=== PATIENT | male | born 1955 | race Caucasian/White ===

== ENCOUNTER → 2018-01-05 13:51 | Outpatient (CLI) | payer OTHER, SELFPAY ==
[2018-01-05 13:34] VITALS: BMI 29.4
--- NOTE | 2018-01-05 13:56 | RAD_ITS ---
STUDY: X-RAY - RIGHT SHOULDER REASON FOR EXAM: Male, 62 years old. Pain after fall 2 months ago TECHNIQUE: 3 view(s) of the shoulder. COMPARISON: None. FINDINGS: Normal glenohumeral articulation. Normal acromioclavicular joint. Normal acromion. Normal humeral head and visualized proximal humerus. The soft tissue structures are unremarkable. Normal visualized pulmonary apex. RAD/Shoulder min 2 Views IMPRESSION: Normal x-ray examination of the shoulder. Electronically Signed: Teofilo Allen MD, FACR at 14:15 EST , Service support ,
== END ==
PROVIDERS: Family Provider Nurse Practitioner Family; PCP Nurse Practitioner Family; Visit Provider Orthopaedic Surgery
DX: M25.511 Pain in right shoulder (principal)
CPT/HCPCS: 73030

== ENCOUNTER → 2018-01-19 11:08 | Outpatient (CLI) | payer OTHER, SELFPAY ==
--- NOTE | 2018-01-19 11:16 | MRI_ITS ---
STUDY: MRI RIGHT SHOULDER REASON FOR EXAM: Pain and decreased range of motion since the first week of October, injury. TECHNIQUE: Standardized fat and water weighted pulse sequences were obtained in all 3 orthogonal planes. COMPARISON: Radiographs 01/05/2018. FINDINGS: There is supraspinatus tendinosis and a full-thickness tear of the distal anterior supraspinatus tendon (T2 coronal series 8 image 14) measuring approximately 1.8 cm in length. Normal infraspinatus tendon. Normal subscapularis tendon. Normal teres minor tendon. Normal supraspinatus muscle. Normal infraspinatus muscle. Normal subscapularis muscle. There is atrophy with fat replacement of the teres minor muscle (proton-density coronal image 1). There is a small glenohumeral joint effusion with fluid extending into the bicipital tendon sheath. There is mild cystic change of the posterior aspect of the greater tuberosity. Normal biceps labral complex. There is mild tendinosis of the extracapsular long biceps tendon (T2 axial images 19, 20) and intracapsular long biceps tendon (T2 sagittal images 11, 12). Normal labrum. Normal capsulo- ligamentous complex. There is acromioclavicular arthrosis without substantial undersurface osteophytes (T2 sagittal image 9). There is a Type II morphology (curved), with a neutral orientation. There is a small volume of subacromial-subdeltoid bursal fluid. Normal visualized coracohumeral and coracoacromial ligaments. Normal deltoid muscle. Normal trapezius muscle. MRI/Upper Ext Joint Only(Routine) IMPRESSION: Full-thickness tear and tendinosis of the supraspinatus tendon. Atrophy of the teres minor muscle. Mild tendinosis of the long biceps tendon. Acromioclavicular arthrosis. Glenohumeral joint fluid communicating with the subacromial-subdeltoid bursa. Electronically Signed: Kishore Tracy MD at 12:57 EST Tel , Service support ,
== END ==
PROVIDERS: Family Provider Nurse Practitioner Family; PCP Nurse Practitioner Family; Visit Provider Orthopaedic Surgery
DX: M75.101 Unspecified rotator cuff tear or rupture of right shoulder, not specified as traumatic (principal)
CPT/HCPCS: 73221

== ENCOUNTER 2018-02-03 05:25 | Day surgery (SDC) | payer OTHER, SELFPAY ==
[2018-02-03] VITALS (9 sets, daily range): BP systolic 120–130; BP diastolic 61–75; PULSE 62–68; RESP 16; TEMP 36.6–36.7; O2SAT 91–95; BMI 29.7
--- NOTE | 2018-02-03 05:38 | EKG12_ITS ---
Test Reason : PRE OP Blood Pressure : / mmHG Vent. Rate : 066 BPM Atrial Rate : 066 BPM P-R Int : 210 ms QRS Dur : 086 ms QT Int : 366 ms P-R-T Axes : 047 049 043 degrees QTc Int : 383 ms Sinus rhythm with 1st degree A-V block Otherwise normal ECG No previous ECGs available Confirmed by ROM PERAZA, CONNOR ([id number]), television news video editor AURORA BECKER ([id number]) on 02/05/2018 3:28:52 PM Referred By: Belinda Almonte Confirmed By:CONNOR CUETO MD
[2018-02-03 06:16] LABS: Hematocrit 41.7 % (40-54); Hemoglobin 14.6 g/dl (13.0-16.5); Mean Corpuscular Hgb 30.1 pg (27.0-32.0); Mean Platelet Vol. 9.7 fl (6.2-12.0); Platelet Count 194 K/mm3 (150-450); RBC Distribution Width CV 12.4 % (11.6-14.6); RBC Distribution Width SD 39.1 fl (35.1-43.9); Red Blood Count 4.85 M/mm3 (4.6-6.2); White Blood Count 7.2 K/mm3 (4.4-11.0)
[2018-02-03 06:21] LABS: Scan Indicated on CBC? Y/N NO
[2018-02-03 06:45] LABS: Anion Gap 7 (5-15); BUN 8 mg/dL (7-18); BUN/Creat Ratio 8.4 RATIO (10-20); Calcium,Total 9.5 mg/dL (8.5-10.1); Chloride 106 mmol/L (98-107); Creatinine, Serum 0.95 mg/dL (0.70-1.30); EST Glomerular Filtration Rate 85 mL/min (>60); Est Glom Filt Rate - Afr Amer 102 mL/min (>60); Estimated Creatinine Clearance 81.11 ml/min; Glucose 185 mg/dL (74-106); Potassium 3.9 mmol/L (3.5-5.1); Sodium Level 138 mmol/L (136-145); Thyroid Stim Hormone (TSH) 6.43 uIU/mL (0.358-3.74)
--- NOTE | 2018-02-03 07:30 | TESH_PTH ---
PATIENT: JONATHAN ADAM LOC: [facility] [place] [facility] [place][id number] AGE/SX: 62/M ROOM: RE02/03/[address]: Dr. Belinda Almonte DO : 1955 BED: DIS: 02/03/2018 SPEC #: [id number] RECD: 02/03/18 13:44 STATUS: JENNIFER EWELINA #: [id number] JENNA: 02/03/18 07:[address]: Belinda Almonte DEPT: SURGICAL PATHOLOGY RECD BY: Krystle Solares ENTERED: 02/03/18 14:52 SP TYPE: TENDON OTHR DR: Maegan Workman, LIDYA Tissues: Tendon and tendon sheath, NOS Procedures: Surgery Specimen Level III HEADER OPERATION: Arthroscopy, right shoulder, rotator cuff repair, subacromial decompression PRE-OP DIAGNOSIS: Right rotator cuff tear, biceps tendonitis TISSUE SUBMITTED: Biceps tendon MICROSCOPIC DIAGNOSIS Biceps tendon: A piece of dense fibroconnective tissue with reactive changes, clinically rotator cuff repair. NIA:matias 02/04/18 MICROSCOPIC DESCRIPTION Slides are reviewed. GROSS DESCRIPTION Received in fixative is one container labeled with the patient's name and designated biceps tendon. The specimen consists of a pink-roper tendinous tissue measuring 4.2 x 1.4 x 0.5 cm. Snuff Drier cross sections and longitudinal sections are submitted in one cassette. / AM:matias 02/03/18 TC:5 CPT: 78251
[2018-02-03] MEDS: Cefazolin 2 GM in 0.9% Normal Saline 100 ML IV (07:42)
--- NOTE | 2018-02-03 07:43 | OP.PCM_ITS ---
Report of Operation Date of Procedure: 02/03/18 Pre-Operative Diagnosis: right shoulder rotator cuff tear, tendinosis, biceps tendinopathy, subacromial impingement syndrome Post-Operative Diagnosis: same Surgery/Procedure Performed:: sars, rc debridement, subacromial decompression/ acromioplasty, rotator cuff repair, open subpec biceps tenodesis Type of Anesthesia:: General/Regional Anesthesiologist: Girma Mzt Specimen's removed: biceps tendon Estimated Blood Loss (mL): minimal Fluids Replaced: 1000ml LR Description of Procedure: Preoperative note She is a 62-year-old male with right shoulder pain and weakness. MRI confirms rotator cuff tear and biceps tendinopathy and subacromial impingement. Patient failed conservative treatment and elected to proceed with right shoulder arthroscopy repair is indicated. Risks benefits and alternatives of surgery were discussed with patient. Risks including but not limited to blood loss, blood clot, infection, neurovascular injury, failure procedure, loss of life and loss of limb. Patient is aware would like proceed with right shoulder arthroscopy repair is indicated. Operative note Patient seen and examined in preoperative holding area. Right shoulder was marked. Patient is brought to the operating room and placed supine on the operating room table. Signing, anesthesia, antibiotics were administered. The right arm was prepped and draped in usual sterile fashion after patient was placed in beachchair positioning. Please note that intermediate through beachchair positioning we did recheck the blood pressure make sure that it was stable throughout which it was. All bony prominences were well-padded and SCDs placed on his bilateral lower externally's. Marked out our bony landmarks for right shoulder arthroscopy. Timeout was performed. We then insufflated the glenohumeral joint from posterior portal. We had good outflow return. We then used 11 blade to create our posterior portal. We will visualize the glenohumeral joint. We began a diet standard diagnostic arthroscopy. There were no loose bodies in the inferior recess. There is no arthritis of the glenohumeral joint. We were able then to create an anterior portal under direct visualization. The biceps is quite thickened and had streaking throughout. The rotator cuff was torn off of its leading edge have more than 50 % of it was torn. Off of the articular side. We able to then perform a biceps tenotomy and then undersurface debrided some of the labrum that was on the anterior aspect that was on loose as well as some of the undersurface of the rotator cuff more on the infraspinatus and in the supraspinatus that has some fibrillated changes as well. We then moved to our subacromial decompression. Please note that after but doing a biceps tenotomy we then debrided the anterior labrum at the insertion as well. We then irrigated the shoulder with copious amounts of sterile saline and moved to the subacromial space. We then created a lateral portal under direct visualization. We are able to then noted note the quite thickened bursa throughout. With a combination of a shaver and a bone ablator we resected the quite thickened bursa. He also had a type II acromion that was resected with a combination of a bur and a shaver. We able to visualize our tear and inserted a probe we then had released it a little bit on the lateral edge in order to get her FasT-Fix device through it. We placed a fiber tape and then a links fiber link through the tear and then placed 1 lateral bio composite swivel lock 4.75 x 22 mm double loaded suture anchor. We had great coverage of the rotator cuff footprint at that point. We then irrigated the subacromial space with copious nonsterile saline. We then moved her open biceps tenodesis. We reprepped the area waited the allotted 3 minutes and then created our vertical incision extending from just the distal edge of the pec insertion about 2 cm. We then dissected down with tenotomy syllable of the biceps tendon. The biceps tendon was brought out of the incision. We then whipstitched the end of it after truncating the allotted portion for length and extension. We whipstitched the end of the biceps tendon and then in standard technique implanted our proximal proximal tenodesis implant system from [employer] the pec button system. We then oversewed the tendon to the periosteum and had good fixation and good strength of our repair. We then irrigated the incision with copious amounts of sterile saline. Incision was closed with interrupted 2- 0 Vicryl in a running 4-0 Monocryl the portals were closed with interrupted interrupted 4-0 nylon stitches sterile dressings were applied patient was placed in a sling. Patient tolerated procedure well there are no complications patient was transferred to the recovery room in stable condition. Please note that preoperatively patient did receive a regional interscalene block. Postoperative note Hospital pharmacy has prescriptions Call with increased pain numbness tingling or further issues arise At all times unless doing pendulums Pictures given to This note was generated with Kaboodle dictation software. It may contain incorrect words, spelling, and punctuation that were not noted in checking the note before signing.
--- NOTE | 2018-02-03 07:43 | PCM.DC.ORTHO ---
Discharge Diet: No Restrictions - remove dressing in 4 days and apply bandaids to incision, sling at all times unless doing pendulums which you may perform 3 times a day, may move wrist/hands as much as possible, follow up in 2 weeks, call with concerns Discharge Activity: May Not Drive May shower in (days): 1 Ice area for (Minutes): 20 - Every hour while awake. Weight Bearing Status: Weight bearing as tolerated Keep extremity elevated above heart level: Operative Extremity Call your doctor if your incision/area has: Continuous Slow Oozing, Sudden Increased Bleeding, Increased Pain/ Swelling, Increased Redness, Foul Smelling Discharge Call your doctor if you observe: Fever of 101 or Higher, Coldness, Increased Pain, Numbness or Tingling, Change in Color, Calf discomfort Allergies/Adverse Reactions: Allergies No Known Allergies Allergy (Verified 02/02/18 08:21) Medications to take at Discharge gabapentin 400 mg capsule 400 mg PO QHS cap 12/29/17 lisinopril 20 mg tablet 20 mg PO QDAY 12/29/17 metformin ER 750 mg tablet,extended release 24 hr 750 mg PO DAILY 12/29/17 niacin 250 mg tablet 250 mg PO QDAY 12/29/17 rosuvastatin 5 mg tablet 5 mg PO QHS 12/29/17 sitagliptin 50 mg-metformin ER 500 mg tablet,extended release 24h mp 1 tab PO QHS 12/29/17 amlodipine 5 mg tablet 10 mg PO QHS tab 01/05/18 cholecalciferol (vitamin D3) 2,000 unit capsule 2,000 unit PO DAILY 01/05/18 duloxetine 60 mg capsule,delayed release 60 mg PO BID cap 01/05/18 levothyroxine 25 mcg capsule 25 mcg PO SUTUTHSA 01/05/18 levothyroxine 50 mcg tablet 50 mcg PO MOWEFR tab 01/05/18 loratadine 10 mg tablet 10 mg PO QDAY 01/05/18 metoprolol tartrate 25 mg tablet 50 mg PO QHS tab 01/05/18 pantoprazole 40 mg tablet,delayed release 40 mg PO QDAY 01/05/18 tramadol 50 mg tablet 50 mg PO Q6H PRN 01/21/18 Oxycodone HCl/Acetaminophen [Percocet 5/325] 1 - 2 tablet PO Q6H PRN PRN 5 Days #56 tablet 02/03/18 Zolpidem Tartrate [Ambien (Generic)] 5 mg PO QHS PRN PRN #14 tablet 02/03/18 The following prescriptions were given: Oxycodone HCl/Acetaminophen [Percocet 5/325] 1 - 2 tablet PO Q6H PRN PRN 5 Days #56 tablet PRN Reason: Pain Zolpidem Tartrate [Ambien (Generic)] 5 mg PO QHS PRN PRN #14 tablet PRN Reason: Insomnia Primary Care Physician: Maegan Workman NP-C [Primary Care Provider] - Please Follow Up With: Belinda Almonte, DO - [phone]
[2018-02-03 09:01] LABS: Hemoglobin A1c 7.8 % (4.2-6.3)
[2018-02-03] MEDS: Mupirocin Ointment 22gm Tube 1 APPLIC (09:40)
[2018-02-03 10:35] LABS: Bedside Glucose 192 mg/dL (70-110)
[2018-02-03] MEDS: HYDROcodone Bitartrate/Apap 5/325 Tablet PO (12:24)
== END 2018-02-03 13:03 | disposition home or self-care (01) ==
LOC: SDC 05:26 → AC 05:27
PROVIDERS: Anesthesiology; Family Provider Nurse Practitioner Family; PCP Nurse Practitioner Family; Visit Provider Orthopaedic Surgery
PROC: (CPT 29827; principal; 2018-02-03 07:10)
DX: M75.121 Complete rotator cuff tear or rupture of right shoulder, not specified as traumatic (principal); M75.21 Bicipital tendinitis, right shoulder; M75.41 Impingement syndrome of right shoulder; K21.9 Gastro-esophageal reflux disease without esophagitis; E11.9 Type 2 diabetes mellitus without complications; I10 Essential (primary) hypertension; E78.5 Hyperlipidemia, unspecified; E03.9 Hypothyroidism, unspecified; Z72.0 Tobacco use
CPT/HCPCS: 01630; 29826; 29827; 29828; 64450; 36415; 80048; 82962; 83036; 84443; 85027; 88304; 93005; J3010; J7120; A4216; C1713; J2405

== ENCOUNTER 2018-02-03 21:03 | Emergency (ER) | payer OTHER, SELFPAY ==
[2018-02-03 21:04] VITALS: BP 152/76; PULSE 92; RESP 25; TEMP 37.3; O2SAT 95; BMI 28.9
[2018-02-03] MEDS: HYDROmorphone 2 MG TABLET 4 MG PO ×2 (22:52→23:48)
[2018-02-03] MEDS: Ketorolac 60 MG/2 ML Vial IM (22:52)
--- NOTE | 2018-02-03 23:30 | ED.VISSUMM ---
- ER Visit Summary Date of Service: 02/03/18 Chief Complaint: Postoperative pain History of Present Illness: The patient is a 62 M who had a rotator cuff surgery earlier today. He was prescribed Percocet. He got an automatic ice cooling device today but had not been using it yet. He was prescribed Percocet but states his pain is uncontrolled despite taking 2 tablets. I was called by Dr. Almonte who asked that we manage the patient's pain and also start him on Dilaudid and she will him a prescription for this after tonight. Physical Examination: Afebrile vitals are stable Moist mucous membranes Heart regular rate and rhythm Lungs are clear Incision is clean dry and intact No edema of the hand normal distal sensation light touch brisk capillary refill palpable radial pulse Test Results: Not indicated Emergency Department Course and Treatment: Patient was treated with intramuscular Toradol and oral Dilaudid here with about a 50% improvement in pain. He states he feels much better and when asked how he was feeling gave a thumbs up and shook my hand. He appears much more comfortable. We will give him a home pack for enough Dilaudid until he can follow-up with his orthopedic surgeon and he was discharged home. Treatment Plan: [] Disposition: Discharge Impression: Postoperative pain This note was generated with KIT digital dictation software. It may contain incorrect words, spelling, and punctuation that were not noted in review of the chart prior to signing ED Disposition - Plan for ED Patient: Chief Complaint: Other, Pain/Inj Referrals: Maegan Workman NP-C [Primary Care Provider] -
--- NOTE | 2018-02-03 23:33 | ED.DEP ---
ED Disposition - Plan for ED Patient: Chief Complaint: Other, Pain/Inj Instructions: ED Post Op Pain Referrals: Maegan Workman NP-C [Primary Care Provider] -
[2018-02-03 23:47] VITALS: BP 148/77; PULSE 83; RESP 17; O2SAT 85
--- NOTE | 2018-02-03 23:47 | ED.RN ---
PT PO DROP TO 85% ON RA. NOTIFIED. ORDERED TO OBSERVE
[2018-02-04 00:12] VITALS: BP 140/87; PULSE 91; RESP 17; O2SAT 95
--- NOTE | 2018-02-04 00:13 | ED.RN ---
DR RODRIGUEZ NOTIFIED OF PO 95-96% OK TO D/C
== END 2018-02-04 00:14 | disposition home or self-care (01) ==
LOC: ED 23:20
PROVIDERS: Emergency Provider Emergency Medicine; Family Provider Nurse Practitioner Family; PCP Nurse Practitioner Family
DX: G89.18 Other acute postprocedural pain (principal); E11.9 Type 2 diabetes mellitus without complications; I10 Essential (primary) hypertension; E78.00 Pure hypercholesterolemia, unspecified; Z72.0 Tobacco use
CPT/HCPCS: 96372; 99283

== ENCOUNTER → 2018-04-01 13:25 | Outpatient (CLI) | payer OTHER, SELFPAY ==
--- NOTE | 2018-04-01 13:28 | CT_ITS ---
STUDY: CT ABDOMEN WITHOUT CONTRAST REASON FOR EXAM: Male, 62 years old. Pain. Recent fall. RADIATION DOSAGE (If Supplied By Facility): CTDIvol = ( 14.48 ) mGy, DLP = ( 525.85 ) mGycm TECHNIQUE: Transaxial images were obtained without intravenous contrast, and without oral contrast. Sagittal and coronal images were reconstructed. Individualized dose optimization techniques were used for this CT. COMPARISON: 02/08/16. FINDINGS: The lung bases, again seen is a 7 mm noncalcified nodule in the 2.1 cm noncalcified mass in the posterior right lung base. These are stable for over 2 years now. There is decreased attenuation of the liver consistent with steatosis. There is hepatomegaly. Normal gallbladder and extrahepatic biliary system. Normal spleen. Normal pancreas. Normal bilateral adrenal glands. Normal right kidney. Normal left kidney. No definite renal or ureteral stones are seen. There is no hydronephrosis on either side. Normal visualized stomach. Normal small intestine. Normal colon. There is non-visualization of the appendix. Normal abdominal aorta. Normal inferior vena cava. Normal retroperitoneum. Normal abdominal wall. There are diffuse degenerative changes of the visualized lumbar spine. CT/Abdomen without IV Contrast IMPRESSION: No acute abnormality seen in the abdomen. Fatty liver and hepatomegaly. Stable noncalcified nodules in the lower right lung. Electronically Signed: Raudel Chappell MD at 14:33 EDT , Service support ,
== END ==
PROVIDERS: Family Provider Nurse Practitioner Family; PCP Nurse Practitioner Family; Visit Provider Internal Medicine
DX: R10.31 Right lower quadrant pain (principal); W19.XXXA Unspecified fall, initial encounter
CPT/HCPCS: 74150

== ENCOUNTER → 2018-05-14 12:21 | Outpatient (CLI) | payer MEDICARE, OTHER, SELFPAY ==
--- NOTE | 2018-05-14 13:00 | MRI_ITS ---
STUDY: MRI RIGHT SHOULDER REASON FOR EXAM: Right shoulder pain and decreased range of motion, new injury, rotator cuff surgery in January. TECHNIQUE: Standardized fat and water weighted pulse sequences were obtained in all 3 orthogonal planes. COMPARISON: MRI images 01/19/2018. FINDINGS: There is a full-thickness tear of the supraspinatus and infraspinatus tendons retracted approximately 4.1 cm (T2 coronal images 6-17). There is mild subscapularis tendinosis (T2 axial image 17) without discrete tendon tear. Normal teres minor tendon. Normal supraspinatus muscle. There is mild edema in the distal superior infraspinatus muscle. Normal subscapularis muscle. There is atrophy with fat replacement of the teres minor muscle (T2 sagittal image 19) as on the prior study. There is a glenohumeral joint effusion. There is an anchor in the greater tuberosity. There is superior migration of the humeral head secondary to the retracted rotator cuff tear. There is an intact biceps tenodesis (T2 sagittal image 7). There is attenuation of the superior labrum likely from debridement. There is inflammation of the joint capsule in the axillary bursa (T2 coronal images 12-14) suggestive of synovitis. There is acromioclavicular arthrosis (T2 sagittal image 19). There is a Type II morphology (curved), with a neutral orientation. There is a small volume of subacromial-subdeltoid bursal fluid. Normal deltoid muscle. Normal trapezius muscle. MRI/Upper Ext Joint Only(Routine) IMPRESSION: Full-thickness tear of the supraspinatus and infraspinatus tendons. Mild subscapularis tendinosis. Atrophy of the teres minor muscle. Intact biceps tenodesis. Synovitis in the axillary bursa. Acromioclavicular arthrosis. Glenohumeral joint fluid communicating with the subacromial-subdeltoid bursa. Electronically Signed: Kishore Tracy MD at 13:36 EDT Tel , Service support ,
== END ==
PROVIDERS: Family Provider Nurse Practitioner Family; PCP Nurse Practitioner Family; Visit Provider Orthopaedic Surgery
DX: M75.01 Adhesive capsulitis of right shoulder (principal)
CPT/HCPCS: 73221

== ENCOUNTER → 2018-06-22 15:42 | Outpatient (CLI) | payer MEDICARE, OTHER, SELFPAY ==
--- NOTE | 2018-06-22 15:53 | MRI_ITS ---
STUDY: MRI BRAIN WITH AND WITHOUT CONTRAST REASON FOR EXAM: Male, 63 years old. Right eye optic nerve atrophy TECHNIQUE: Standardized multiplanar fat and water weighted pulse sequences were obtained. 10 ml of Gadavist contrast material was administered intravenously for the contrast portion of the examination. COMPARISON: None. FINDINGS: Normal size of the ventricles and extra-axial spaces for the patient's age. Mild microangiopathic white matter disease. Normal bilateral basal ganglia. Normal thalami. There is no extra-axial fluid accumulation. Normal flow voids within the major intracranial circulation suggesting patency by spin echo criteria. Normal venous enhancement. There is no enhancing intra-axial or extra-axial abnormality. Normal sella turcica, pituitary gland, infundibular stalk, optic chiasm and hypothalamus. Normal tectal plate and pineal gland. Normal midbrain, nikki and medulla. Normal cerebellum. Normal basal cisterns. Normal bilateral temporal bones. Normal bilateral internal auditory canals. Right maxillary sinus disease. Normal calvarium and skull base. Normal visualized soft tissue structures. Normal visualized upper cervical spine. IMPRESSION: No evidence of infarct or hemorrhage. Mild microangiopathic white matter disease. Electronically Signed: Diogenes Titus MD at 2:03 EDT Tel , Service support , STUDY: MRI ORBITS WITH AND WITHOUT CONTRAST REASON FOR EXAM: Male, 63 years old. Right eye optic nerve atrophy TECHNIQUE: Standardized fat and water weighted pulse sequences were obtained in all 3 orthogonal planes, pre-and post contrast administration. 10 ml of Gadavist contrast material was administered intravenously for the contrast portion of the examination. COMPARISON: None. FINDINGS: Normal bilateral globes. There does appear to be some mild atrophy of the right optic nerve compared to the left side. Normal bilateral intraconal and extraconal spaces. Normal bilateral extraocular muscles. Normal optic chiasm and post-chiasmatic tracts. Normal sella turcica, pituitary gland, infundibular stalk, and hypothalamus. Normal bilateral cavernous sinuses. Normal tectal plate and pineal gland. MRI/Brain W/WO Contrast IMPRESSION: Mild right optic nerve atrophy compared to the left side. No superimposed findings of optic neuritis. No intraorbital masses or abnormal enhancement. Electronically Signed: Diogenes Titus MD at 2:06 EDT Tel , Service support ,
[2018-06-22 16:10] LABS: CREATININE FINGERSTICK 0.8 mg/dL (0.70-1.30); EGFR FINGERSTICK > 60.0000 mL/min (>60)
[2018-06-22 17:46] LABS: Hemoglobin A1c 8.9 % (4.2-6.3)
[2018-06-22 18:28] LABS: Microalbumin,Random Urine 15.7 mg/L (NO RANGE EST.); Microalbumin:Creatinine Ratio 14.4 mg/g CRE (<30 mg/g CRE)
[2018-06-22 18:47] LABS: PSA,Total - Annual Screen 0.36 ng/mL (0.00-4.00); Thyroid Stim Hormone (TSH) 3.42 uIU/mL (0.358-3.74)
== END ==
PROVIDERS: Family Provider Nurse Practitioner Family; PCP Nurse Practitioner Family; Visit Provider Ophthalmology
DX: H47.20 Unspecified optic atrophy (principal); E03.1 Congenital hypothyroidism without goiter; E11.9 Type 2 diabetes mellitus without complications; Z12.5 Encounter for screening for malignant neoplasm of prostate
CPT/HCPCS: 36415; 70553; 82043; 82570; 83036; 84153; 84439; 84443; A9585; G0103

== ENCOUNTER 2018-06-23 10:39 | Day surgery (SDC) | payer MEDICARE, OTHER, SELFPAY ==
[2018-06-23] VITALS (8 sets, daily range): BP systolic 109–135; BP diastolic 60–92; PULSE 65–91; RESP 18; TEMP 36.6–37.2; O2SAT 92–96; BMI 28.5
[2018-06-23 11:09] LABS: Hematocrit 42.3 % (40-54); Hemoglobin 14.8 g/dl (13.0-16.5); Mean Corpuscular Hgb 29.8 pg (27.0-32.0); Mean Corpuscular Volume 85.1 fL (80-94); Mean Platelet Vol. 10.1 fl (6.2-12.0); Platelet Count 225 K/mm3 (150-450); RBC Distribution Width CV 12.8 % (11.6-14.6); RBC Distribution Width SD 38.8 fl (35.1-43.9); Red Blood Count 4.97 M/mm3 (4.6-6.2); Scan Indicated on CBC? Y/N NO; White Blood Count 7.6 K/mm3 (4.4-11.0)
[2018-06-23 11:31] LABS: Anion Gap 7 (5-15); BUN 15 mg/dL (7-18); Calcium,Total 10.2 mg/dL (8.5-10.1); Chloride 106 mmol/L (98-107); Creatinine, Serum 0.94 mg/dL (0.70-1.30); EST Glomerular Filtration Rate 86 mL/min (>60); Est Glom Filt Rate - Afr Amer 104 mL/min (>60); Glucose 175 mg/dL (74-106); Potassium 4.3 mmol/L (3.5-5.1); Sodium Level 140 mmol/L (136-145); Thyroid Stim Hormone (TSH) 3.35 uIU/mL (0.358-3.74)
[2018-06-23] MEDS: Cefazolin 2 GM in 0.9% Normal Saline 100 ML IV (12:44)
[2018-06-23] MEDS: Mupirocin Ointment 22gm Tube 1 APPLIC (17:00)
--- NOTE | 2018-06-23 17:06 | DCINST_ITS ---
Discharge Diet: No Restrictions - leave dressings on and change dressings and apply bandaids to incision in 5 days, may get incision wet after 5 days, SLING AT ALL TIMES, SLING AT ALL TIMES! SLING AT ALL TIMES!! Discharge Activity: May Not Drive May shower in (days): 1 Ice area for (Minutes): 20 - Every hour while awake. Weight Bearing Status: Weight bearing as tolerated Keep extremity elevated above heart level: Operative Extremity Call your doctor if your incision/area has: Continuous Slow Oozing, Sudden Increased Bleeding, Increased Pain/ Swelling, Increased Redness, Foul Smelling Discharge Call your doctor if you observe: Fever of 101 or Higher, Coldness, Increased Pain, Numbness or Tingling, Change in Color, Calf discomfort Allergies/Adverse Reactions: Allergies No Known Allergies Allergy (Verified 06/16/18 12:52) Medications to take at Discharge gabapentin 400 mg capsule 400 mg PO BID cap 12/29/17 lisinopril 20 mg tablet 20 mg PO QDAY 12/29/17 metformin ER 750 mg tablet,extended release 24 hr 750 mg PO DAILY 12/29/17 niacin 250 mg tablet 250 mg PO QDAY 12/29/17 rosuvastatin 5 mg tablet 5 mg PO QHS 12/29/17 amlodipine 5 mg tablet 10 mg PO QHS tab 01/05/18 cholecalciferol (vitamin D3) 2,000 unit capsule 2,000 unit PO DAILY 01/05/18 duloxetine 60 mg capsule,delayed release 60 mg PO BID cap 01/05/18 levothyroxine 25 mcg capsule 25 mcg PO MOWEFR 01/05/18 levothyroxine 50 mcg tablet 50 mcg PO SUTUTHSA tab 01/05/18 loratadine 10 mg tablet 10 mg PO QDAY 01/05/18 metoprolol tartrate 25 mg tablet 50 mg PO QHS tab 01/05/18 pantoprazole 40 mg tablet,delayed release 40 mg PO QDAY 01/05/18 Ondansetron [Zofran] 8 mg PO Q8H PRN PRN #20 tab 06/23/18 Oxycodone HCl/Acetaminophen [Percocet 5/325] 1 - 2 tablet PO Q6H PRN PRN 5 Days #45 tablet 06/23/18 Zolpidem Tartrate [Ambien (Generic)] 5 mg PO QHS PRN PRN #14 tablet 06/23/18 The following prescriptions were given: Oxycodone HCl/Acetaminophen [Percocet 5/325] 1 - 2 tablet PO Q6H PRN PRN 5 Days #45 tablet PRN Reason: Pain Ondansetron [Zofran] 8 mg PO Q8H PRN PRN #20 tab PRN Reason: Nausea Zolpidem Tartrate [Ambien (Generic)] 5 mg PO QHS PRN PRN #14 tablet PRN Reason: Insomnia Primary Care Physician: Maegan Workman NP-C [Primary Care Provider] - Test Results: Test results from this visit will be discussed in further detail at your follow- up appointment, if applicable. Please Follow Up With: Belinda Almonte, - [phone]
--- NOTE | 2018-06-23 17:16 | OP.PCM_ITS ---
Report of Operation Date of Procedure: 06/23/18 Pre-Operative Diagnosis: Right shoulder failed rotator cuff repair/ osteoarthritis/ noncompliance/ subacromial impingement syndrome Post-Operative Diagnosis: same Surgery/Procedure Performed:: sars, rotator cuff repair with superior capsular reconstruction/ subacromial decompression/acromioplasty hand roller engraver: Neville Huang Type of Anesthesia:: General/Regional Anesthesiologist: Girma Mtz Estimated Blood Loss (mL): minimal Fluids Replaced: 2100ml lr Description of Procedure: Preoperative note Patient is a 63-year-old male well-known to me. Patient had a failed rotator cuff repair is noncompliant was on a bili hay was playing with goats multiple etiologies for his failed cuff initially. We try to treat him conservatively with therapy to see if he can regain any strength was unable to. Patient is quite active had minimal arthritis and wanted to get back to his activities of daily living and work activities we discussed different options at this point his best option is a superior capsular release if I can get his rotator cuff back. It appears on MRI to be retracted to at least the glenoid and I question the quality of the residual tendon. This is all discussed with patient. Risks benefits and alternatives surgery discussed with patient. Risks including but not limited to blood loss, blood clot, infection, neurovascular injury, failure procedure, loss of life and loss of limb. Patient is aware like proceed with right shoulder arthroscopy repair is indicated. Operative note Patient seen and examined preoperative holding area. Right shoulder was marked. Patient brought to the operating room placed supine on the operative table. Signing, anesthesia, antibiotics were administered. The right arm was prepped and draped in usual sterile fashion in beachchair positioning. All bony prominence is well-padded SCDs placed on his bilateral strength lower semi- . Alf through beachchair position we did recheck his blood pressure which is stable throughout. Again the right we prepped and draped his right shoulder in standard fashion we marked out our bony landmarks for portal placement we use our previous portal placement. Timeout was performed. We then insufflated the glenohumeral joint from the posterior total. Using 11 blade to create a create our posterior portal. We then were able to visualize the glenohumeral joint. He has some labral fraying which was noted he had no loose bodies in the inferior recess. His rotator cuff was obviously torn and retracted to the level of the glenoid and is in the infraspinatus was also torn and retracted posteriorly. We then created a lateral portal under direct visualization as well as an anterior lateral portal. We placed passports of the corrective size and each 1 of these. We then attempted to mobilize the cuff to see if we can bring it back to the x-rays insertion we are unable to especially from the medial glenoid retraction. This point we decided to convert to her superior capsular reconstruction. We gently debrided the area posterior to the labral insertion. The subacromial bursa degenerative tissues and sutures from previous repairs was thoroughly excised right clean and clear arthroscopic view of the glenoid humeral footprint. We first placed our glenoid anchors we placed 3 corkscrews anchors in the superior glenoid reduce percutaneous skin incisions spanning the glenoid from anterior to posterior at the 10:00 12:00 and 2:00 positions. We then placed our tuberosity anchor as the graft was fixed to the humerus using a knotless speed bridge repair we inserted 214.75 millimeters of the locking and 1 6.2 5 suture anchor about and measured appropriately next to the articular margin spanning humerus from the bicipital groove to the infraspinatus we extended the graft 5 mm around the anchors over the suture and cutting through and then 10-15 minutes on the tuberosity Cypher footprint present coverage. We marked our we measured all of our suture anchors and then used a marking pen and ruler to measure out the graft and marked anchor locations. We then used a scalpel and scissors to cut the graft performed. We punched holes in the lateral anchor locations using a 2 mm tissue biopsy punch please note that we measured our graft measurement preparations the anterior posterior distance between glenoid anchors, the anterior posterior distance between 2 rocks anchors, the medial lateral distance between posterior anchors, and the medial lateral distance between anterior anchors. We then aligned and oriented the prepared graft in its implant position outside of the lateral 10 mm passport actually was 12 mm passport cannula. We used the sutures a retrieval to carefully pull the fiber tape sutures through the passport button cannulated into the appropriate punch holes in the graft. We then retrieved and passed the 4 separate super check suture tack sutures with a scorpion suture passer for the double arpit side of his repair we avoided tingling to be to position the past sutures prior to removal of the addition normal sutures over the past per button cannula. We then grasped the leading edge of the graft with a tissue grasper pushed the graft in the past for button cannula passed the cannula dam maintain a graft orientation did not twist the graft. During insertion we then pulled the slightest suture through the graft from the fiber tape and FiberWire sutures. We continue to pull the FiberWire suture in the graft in position of the suture tack anchors firmly onto the glenoid. We tensioned the fiber tape sutures were pushing down the graft which are all suture slack was removed from under the graft. We completed a speed bridge repair with 2 lateral 4.75 swivel lock anchors and cut the remaining suture limbs. We then passed 3 marginal convergence stitches to the remaining infraspinatus and subscapularis with a lasso suture and lateral and scorpion suture passer combination. We had anterior graft tissue remaining as well and so we did fix the graft anterior leads to some of the rotator cuff supraspinatus that was left over. After this was done we irrigated the incision and the shoulder with copious amounts of sterile saline. The portals were closed with interrupted 4-0 nylon suture sterile dressings and a sling was applied. Patient tolerated tolerated procedure well there are no complication patient transferred to recovery room in stable condition patient did receive a postop regional interscalene block. Postoperative note Sling at all times Pharmacy has prescriptions Follow-up in 2 weeks Call with increased pain numbness tingling or further issues arise Pictures given to family This note was generated with Aireonation software. It may contain incorrect words, spelling, and punctuation that were not noted in checking the note before signing.
[2018-06-23] MEDS: Insulin Lispro 100 UNIT/ML INSULN.PEN SC (18:01)
[2018-06-23] MEDS: HYDROcodone Bitartrate/Apap 5/325 Tablet PO (18:25)
[2018-06-23 19:01] LABS: Bedside Glucose 227 mg/dL (70-110)
[2018-06-23 21:29] LABS: Hemoglobin A1c 8.7 % (4.2-6.3)
[2018-06-24 07:15] LABS: Bedside Glucose 324 mg/dL (70-110)
[2018-06-24 07:15] LABS: Bedside Glucose 302 mg/dL (70-110)
== END 2018-06-23 19:21 | disposition home or self-care (01) ==
LOC: SDC 10:40 → AC 10:41
PROVIDERS: Family Provider Nurse Practitioner Family; PCP Nurse Practitioner Family; Visit Provider Orthopaedic Surgery
PROC: (CPT 29827; principal; 2018-06-23 11:40)
DX: M75.121 Complete rotator cuff tear or rupture of right shoulder, not specified as traumatic (principal); M75.41 Impingement syndrome of right shoulder; E03.9 Hypothyroidism, unspecified; I10 Essential (primary) hypertension; E78.5 Hyperlipidemia, unspecified; E11.9 Type 2 diabetes mellitus without complications; K21.9 Gastro-esophageal reflux disease without esophagitis; F17.200 Nicotine dependence, unspecified, uncomplicated; Z91.19 Patient's noncompliance with other medical treatment and regimen
CPT/HCPCS: 29826; 29827; 64450; 80048; 82962; 83036; 84443; 85027; C1713; J7120; J2405

== ENCOUNTER → 2018-07-06 11:23 | Outpatient (CLI) | payer MEDICARE, OTHER, SELFPAY ==
--- NOTE | 2018-07-06 11:26 | US_ITS ---
STUDY: ABDOMINAL ULTRASOUND - RIGHT UPPER QUADRANT REASON FOR VISIT: Male, 63 years old. Fatty liver. Hepatomegaly. TECHNIQUE: Ultrasound evaluation of the right upper quadrant was performed with real-time and static kearns-scale imaging. TECHNICAL QUALITY: Adequate. COMPARISON: CT abdomen and pelvis 04/01/2018, 02/08/2016.. FINDINGS: Liver: The greatest sonographic measurement of the liver is 16.5 cm. However, on prior CT scan the greatest craniocaudal dimension of the right liver was up to 20 cm. Hepatomegaly. Echogenic liver consistent with hepatic steatosis. A hypoechoic region within the left liver suggest the presence of fatty sparing. This region measures about 3.4 x 5.2 x 3.7 cm. The bile ducts are within normal limits. There is hepatic color flow. The direction of portal flow is hepatopetal. There is no demonstrated mass lesion. Gallbladder: Normal distended gallbladder. The gallbladder wall measures 2.2 mm. There is a negative sonographic Serrano's sign. There is no pericholecystic fluid. There are no gallstones. Common Bile Duct (C.B.D.): The common bile duct measures 2.1 mm. Pancreas: Normal size of the head, body and tail of the pancreas. There is normal echogenicity of the pancreas. There is no demonstrated pancreatic mass or cyst. Right Kidney: Normal size of the right kidney. The right kidney measures 10.3 x 4.7 x 6.5 cm. Normal renal cortex. The right cortex measures 1.4 cm. There is no demonstrated renal mass or cyst. There is no right hydronephrosis. US/Abdomen Limited IMPRESSION: Hepatic steatosis with regions of fatty sparing in the left liver. Hepatomegaly. Normal gallbladder and biliary tree. No other acute intra-abdominal process is evident. Electronically Signed: Chilo Urban, at 14:55 EDT Tel , Service support ,
== END ==
PROVIDERS: Family Provider Nurse Practitioner Family; PCP Nurse Practitioner Family
DX: K76.0 Fatty (change of) liver, not elsewhere classified (principal); R16.0 Hepatomegaly, not elsewhere classified
CPT/HCPCS: 76705

== ENCOUNTER → 2019-02-10 13:04 | Outpatient (CLI) | payer MEDICARE, OTHER, SELFPAY ==
[2019-02-10 12:58] VITALS: BMI 29.4
--- NOTE | 2019-02-10 13:06 | RAD_ITS ---
STUDY: X-RAY - LEFT ELBOW REASON FOR EXAM: Male, 63 years old. Posterior medial pain. TECHNIQUE: 3 view(s) of the elbow. COMPARISON: None. FINDINGS: No reported trauma. No evidence of elbow joint effusion. Osseous structures about the elbow appear intact, normally articulated and normally mineralized. Periarticular soft tissues unremarkable. RAD/Elbow min 3 Views IMPRESSION: Normal x-ray examination of the elbow. Electronically Signed: Chilo Urban MD at 10:53 EDT Tel , Service support ,
== END ==
PROVIDERS: Family Provider Nurse Practitioner Family; PCP Nurse Practitioner Family; Referring Provider Physician Assistant; Visit Provider Physician Assistant
DX: R52 Pain, unspecified (principal)
CPT/HCPCS: 73080

== ENCOUNTER → 2020-05-31 | Outpatient (CLI) | payer MEDICARE, OTHER, SELFPAY ==
[2020-05-31 09:19] VITALS: BMI 29.4
--- NOTE | 2020-05-31 09:25 | RAD_ITS ---
STUDY: X-RAY - LEFT KNEE REASON FOR EXAM: Knee pain. TECHNIQUE: 4 view(s) of the knee. COMPARISON: None. FINDINGS: Normal visualized distal femur. Normal visualized proximal tibia and fibula. Normal proximal tibiofibular articulation. There is mild joint space narrowing of the medial femorotibial compartment. Normal lateral femorotibial compartment. Normal patellofemoral articulation. There is mild patellar enthesopathy. RAD/Knee 4 or More Views IMPRESSION: Mild arthrosis of the medial femorotibial compartment. Electronically Signed: Kishore Tracy MD at 10:22 EDT Tel , Service support ,
== END | disposition home or self-care (01) ==
LOC: HPRAD 09:25
PROVIDERS: PCP Nurse Practitioner Family; Referring Provider Orthopaedic Surgery; Visit Provider Orthopaedic Surgery
DX: M25.562 Pain in left knee (principal)
CPT/HCPCS: 73564

== ENCOUNTER → 2020-06-07 | Outpatient (CLI) | payer MEDICARE, OTHER, SELFPAY ==
[2020-05-31 09:19] VITALS: BMI 29.4
--- NOTE | 2020-06-07 16:06 | MRI_ITS ---
STUDY: MRI LEFT KNEE REASON FOR EXAM: Left knee pain, symptoms for 6-8 weeks. TECHNIQUE: Standardized fat and water weighted pulse sequences were obtained in all 3 orthogonal planes. COMPARISON: Radiographs 05/31/2020. FINDINGS: There is a complex tear of the posterior horn/body of the medial meniscus (proton-density sagittal images 13-17; proton density sagittal images 7-14). There is mild arthrosis of the medial femorotibial compartment with mild partial-thickness chondral loss of the medial femoral condyle (T2 sagittal image 14). There is mild bone edema of the medial femoral condyle (T2 coronal images 11-20), a stress phenomenon. Normal medial collateral ligamentous complex (MCL). There is semimembranosus bursitis (T2 sagittal images 3-8). Normal lateral meniscus. There is a small low-grade focal chondral defect of the posterior weightbearing portion of the lateral femoral condyle (T2 sagittal image 31; T2 coronal image 11) measuring 0.6 x 0.4 cm (AP x transverse). Normal lateral femoral condyle and tibial plateau. Normal proximal tibiofibular articulation. Normal lateral collateral (fibular) ligament. Normal popliteus tendon. Normal biceps femoris tendon. Normal anterior cruciate ligament (ACL). Normal posterior cruciate ligament (PCL). Normal congruent patellofemoral articulation. There is intermediate grade chondromalacia of the lateral patellar facet (T2 axial image 13). Normal medial and lateral patellar retinaculum. Normal quadriceps tendon. Normal patellar tendon. Normal Hoffa''s fat pad. There is a minimal volume of fluid in the knee joint. There is a small popliteal cyst (T2 sagittal images 12-17). There is mild edema in the anterior subcutis adipose space. The otherwise visualized osseous structures are unremarkable. MRI/Lower Ext Joint Only (Routine) IMPRESSION: Medial meniscal tear. Mild arthrosis of the medial femorotibial compartment. Mild bone edema of the medial femoral condyle, a stress phenomenon. Small focal chondral defect of the lateral femoral condyle. Chondromalacia patellae. Small popliteal cyst. Semimembranosus bursitis. Electronically Signed: Kishore Tracy MD at 8:34 EDT Tel , Service support ,
== END | disposition home or self-care (01) ==
LOC: MRI 16:06
PROVIDERS: PCP Nurse Practitioner Family; Referring Provider Orthopaedic Surgery; Visit Provider Orthopaedic Surgery
DX: S83.242A Other tear of medial meniscus, current injury, left knee, initial encounter (principal)
CPT/HCPCS: 73721

== ENCOUNTER 2020-10-29 15:20 | Inpatient (IN) | payer MEDICARE, OTHER, SELFPAY ==
[2020-06-12 14:22] VITALS: BMI 29.4
[2020-10-29] VITALS (9 sets, daily range): BP systolic 111–126; BP diastolic 63–76; PULSE 64–87; RESP 11–18; TEMP 36.9–37; O2SAT 88–97; BMI 29.7; BMI 27.9
--- NOTE | 2020-10-29 16:10 | EKG12_ITS ---
Test Reason : DYSRHYTHMIA Blood Pressure : / mmHG Vent. Rate : 082 BPM Atrial Rate : 082 BPM P-R Int : 188 ms QRS Dur : 084 ms QT Int : 336 ms P-R-T Axes : 020 039 027 degrees QTc Int : 392 ms Normal sinus rhythm Normal ECG Confirmed by BIENVENIDO PERAZA, SUKHI ([id number]), editorial clerk LAURY MONSIVAIS ([id number]) on 10/31/2020 9:39:37 AM Referred By: Sukhi Vines Confirmed By:SUKHI FARIA MD
--- NOTE | 2020-10-29 16:11 | ED.VIS.GEN ---
History of Present Illness Chief Complaint: Upper Extremity Injury Informant: Patient Narrative: Patient presents with multiple complaints. He had a colonoscopy 1 week ago at [place]. He states the findings were normal. 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 The next morning he started not feeling well and started having spasms in his right mid back near the lower ribs. He states the pain wraps around into his abdomen. He was seen at the emergency room in [place] yesterday where a CT scan of his abdomen and pelvis was unremarkable. Patient states he did not improve much with a dose of morphine but did improve after getting a dose of Flexeril in the ER. Patient was sent home with Percocet which she states is not really helping his symptoms. He continues to have spasms in his back as well as abdominal pain. He did take some Gas-X this morning and following this was able to pass some liquid stool and some gas. He also complains of bilateral arm pain and throbbing. He states he has had this previously with no definitive diagnosis. He does have a history of neck problems and does require intermittent cortisone injections, but has not had this performed in approximately 3 years. - Past Medical History (1) GERD (gastroesophageal reflux disease) Status: Chronic (2) Diabetes Status: Chronic (3) Hypertension Status: Chronic (4) High cholesterol Status: Chronic (5) Hypothyroid Status: Chronic Past Medical History - Allergies and Home Meds Allergies/Adverse Reactions: Allergies No Known Allergies Allergy (Verified 08/03/18 11:00) Primary Care Physician: Maegan Workman NP, [employer] [NON-STAFF] - Prior records reviewed: Yes Lives: Spouse/ Significant Other Smoking Status: Never smoker Review of Systems General: Denies: Chills, Fever Eyes: Denies: Visual changes - bilaterally ENT: Denies: Bilateral ear pain Cardiovascular: Denies: Chest pain Respiratory: Reports: Cough, Sputum. Denies: Dyspnea Gastrointestinal: Reports: Abdominal pain, - - Increased reflux. Denies: Vomiting Musculoskeletal: Reports: Extremity Pain Skin: Denies: Rash Neurological: Denies: Headache Hematologic: Denies: Easy bruising, Easy bleeding Allergy: Denies: Uticaria Physical Exam Vital Signs/Narrative: Vital Signs Temp Pulse Resp BP Pulse Ox 10/29/20 15:31 98.5 F 84 18 119/65 94 10/29/20 15:25 98.5 F 83 18 119/65 94 Inital Vital Signs reviewed: Yes General: Well nourished, Well developed Head: Normocephalic ENT: Moist mucous membranes Neck: Supple Cardiovascular: Regular rate, Regular rhythm Respiratory: No distress, CTA bilaterally Abdomen: Soft, Nontender, Hypoactive bowel sounds, - - Abdomen slightly distended Skin: Normal color Neurological: Alert, Oriented x3 Psychological: Normal affect Diagnostic/Tx/Re-eval Impressions Chest X-Ray 10/29/20 17:35 IMPRESSION: No acute findings. Electronically Signed: Mary Ann Laura MD at 18:38 EST Tel , Service support , 10/29/20 17:35 Chest 1 View (Portable) [RAD] Stat 10/29/20 16:15 Mucosa - Nose SARS-CoV-2 Antigen (Rapid) - Final SARS-CoV-2 (COVID 19) Laboratory Results 10/29/20 10/29/20 16:20 16:20 WBC 8.3 RBC 5.20 Hgb 15.2 Hct 45.3 MCV 87.1 MCH 29.2 MCHC 33.6 RDW Std Deviation 40.9 RDW Coeff of Lila 13.1 Plt Count 212 MPV 9.6 Immature Gran % (Auto) 0.500 Neut % (Auto) 71.4 H Lymph % (Auto) 15.3 L Sanders % (Auto) 10.7 H Eos % (Auto) 1.5 Baso % (Auto) 0.6 Absolute Neuts (auto) 5.9 Absolute Lymphs (auto) 1.26 Nucleated RBC % 0 Sodium 137 Potassium 3.7 Chloride 107 Carbon Dioxide 23.0 Anion Gap 7 BUN 10 Creatinine 0.95 Estim Creat Clear Calc 77.91 Est GFR (MDRD) Af Amer 101 Est GFR (MDRD) Non-Af 84 BUN/Creatinine Ratio 10.5 Glucose 107 H Calcium 9.1 Total Bilirubin 0.90 Direct Bilirubin 0.19 AST 11 L ALT 21 Alkaline Phosphatase 120 H Troponin I < 0.015 Total Protein 6.4 Albumin 3.2 Globulin 3.2 - EKG Initial EKG Interpretation: Sinus Rhythm - Sinus at 82 with no acute ischemia. - Medical Decision Making Patient was given a dose of Flexeril to help with his back pain. He was given Protonix to help with his reflux. Nursing staff did note that the patient's pulse ox dropped to 88% while resting. He was placed on 2 L and O2 sat is in the low 90s. Covid test does return positive. With patient having only recent symptoms and requiring O2 at this time I will suggest hospitalization for Decadron and remdesivir. He is given a dose of Decadron at this time. I will speak with the hospitalist. ED Disposition - Plan for ED Patient: Disposition: Acute Care Hospital [facility] Diagnosis: COVID-19 Referrals: Maegan Workman NP, [employer]CH[employer]IC[employer] [NON-STAFF] -
--- NOTE | 2020-10-29 16:24 | ED.RN ---
this nurse called Harriet, pt's at [phone], informed her that pt is having labs drawn, i.v. placed and Covid test. Will call her with updates.
[2020-10-29] MEDS: cycloBENZAPRine HCl 10 MG Tablet PO (16:35)
[2020-10-29 16:37] LABS: Absolute Lymphocyte Count 1.26 X10^3/uL (0.83-4.51); Absolute Neutrophil Count 5.9 X10^3/uL (2.0-7.7); Basophil# 0.05 X10^3/uL; Basophil% 0.6 % (0-1); Eosinophil# 0.12 X10^3/uL; Eosinophils% 1.5 % (0-5); Hematocrit 45.3 % (40-54); Hemoglobin 15.2 g/dL (13.0-16.5); Lymphocyte # 1.26 X10^3/ul (4.0); Lymphocyte % 15.3 % (19-41); Mean Corp Hgb Conc 33.6 g/dL (32-36); Mean Corpuscular Hgb 29.2 pg (27.0-32.0); Mean Corpuscular Volume 87.1 fL (80-94); Mean Platelet Vol. 9.6 fl (6.2-12.0); Monocyte# 0.88 X10^3/uL; Monocyte% 10.7 % (0-10); NRBC Flagged by Analyzer 0 % (0-5); Neutrophil # 5.91 X10^3/uL (2.7-7.7); Neutrophil % 71.4 % (47-70); Platelet Count 212 K/mm3 (150-450); RBC Distribution Width CV 13.1 % (11.6-14.6); RBC Distribution Width SD 40.9 fl (35.1-43.9); White Blood Count 8.3 K/mm3 (4.4-11.0)
[2020-10-29 16:56] LABS: AST(SGOT) 11 U/L (15-37); Alanine Aminotransfer ALT/SGPT 21 U/L (16-61); Albumin, Serum 3.2 g/dL (3.2-5.0); Alkaline Phosphatase 120 U/L (45-117); Anion Gap 7 (5-15); BUN 10 mg/dL (7-18); BUN/Creat Ratio 10.5 RATIO (10-20); Bilirubin, Direct 0.19 mg/dL (0.00-0.30); Calcium,Total 9.1 mg/dL (8.5-10.1); Chloride 107 mmol/L (98-107); Creatinine, Serum 0.95 mg/dL (0.70-1.30); EST Glomerular Filtration Rate 84 mL/min (>60); Est Glom Filt Rate - Afr Amer 101 mL/min (>60); Estimated Creatinine Clearance 77.91 ml/min; Globulin 3.2 g/dL (2.2-4.2); Glucose 107 mg/dL (74-106); Potassium 3.7 mmol/L (3.5-5.1); Protein, Total 6.4 g/dL (6.4-8.2); Sodium Level 137 mmol/L (136-145)
--- NOTE | 2020-10-29 17:35 | RAD_ITS ---
STUDY: X-RAY CHEST REASON FOR EXAM: Male, 65 years old. left arm pain, back pain TECHNIQUE: Single AP portable view of the chest. COMPARISON: CT chest 02/26/2017. FINDINGS: The lungs are clear and expanded. There is no demonstrated pleural abnormality. Normal size heart. Normal mediastinum and fabby. Normal visualized pulmonary arteries. Normal visualized aortic arch and descending thoracic aorta. Thoracic spondylosis, soft tissues and bony structures are otherwise unremarkable. RAD/Chest 1 View (Portable) IMPRESSION: No acute findings. Electronically Signed: Mary Ann Laura MD at 18:38 EST Tel , Service support ,
--- NOTE | 2020-10-29 18:42 | ED.RN ---
PT YEVGENIY WAS NOTIFIED THAT PT WILL BE DISCHARGED HOME TODAY. WILL CALL AND UPDATE WHEN DISCHARGE PAPERS ARE READY.
[2020-10-29] MEDS: dexAMETHasone 10 MG/ML Vial 6 MG IV (19:13)
--- NOTE | 2020-10-29 19:24 | HP.PCM_ITS ---
Problem List (1) GERD (gastroesophageal reflux disease) Status: Chronic (2) Diabetes Status: Chronic (3) Hypertension Status: Chronic (4) High cholesterol Status: Chronic (5) Hypothyroid Status: Chronic (6) COVID-19 Status: Acute History of Present Illness Date of Admission: 10/29/20 Chief Complaint: covid 19 with hypoxia The patient is a 65 year old male patient with a past medical history of hypertension, diabetes, hypercholesterolemia, GERD who presents to the emergency room with chief complaint of arm pain. The patient had a colonoscopy 1 week ago for routine screening and subsequently developed some lower back pain and abdominal pain for which she was seen in the ER and apparently a CT scan was done at this outside facility and was deemed normal. He was given muscle relaxers and pain medication but today has developed pain in his upper arms and came to the emergency room for evaluation. During the course of his evaluation in the emergency room he was found to be hypoxic and required oxygen to maintain his pulse oxygenation greater than 90%. Laboratory revealed a positive COVID-19 antigen test and admission was requested. Patient denies chest pain and denies fevers or chills at this time. He does have an increased oxygen demand but denies feeling short of breath. He has a history of chewing tobacco and request a patch while admitted. Past Medical History Past Medical History (Chronic Problems): Chronic Problems (Last Reviewed 01/21/18 @ 12:49 by Nilda Rodriguez) GERD (gastroesophageal reflux disease) (Chronic) Diabetes (Chronic) Hypertension (Chronic) High cholesterol (Chronic) Hypothyroid (Chronic) Medical History: Medical History (Last Reviewed 01/21/18 @ 12:49 by Nilda Rodriguez) Cervical disc disorder at C6-C7 level with radiculopathy M50.123 Cervicalgia M54.2 Other cervical disc degeneration, unspecified cervical region M50.30 Radiculopathy of cervical region M54.12 Radiculopathy of cervicothoracic region M54.13 Acid reflux K21.9 Diabetes E11.9 Hyperlipidemia E78.5 Hypertension I10 Hypothyroidism E03.9 Pneumonia J18.9 Allergies No Known Allergies Allergy (Verified 08/03/18 11:00) Home Medications: Ambulatory Orders Medication Instructions Recorded lisinopril 20 mg tablet 20 mg PO QDAY 12/29/17 metformin 750 mg tablet,extended 750 mg PO DAILY 12/29/17 release 24 hr rosuvastatin 5 mg tablet 5 mg PO QHS 12/29/17 amlodipine 5 mg tablet 10 mg PO QHS tab 01/05/18 duloxetine 60 mg capsule,delayed 60 mg PO BID cap 01/05/18 release levothyroxine 25 mcg capsule 25 mcg PO MOWEFR 01/05/18 levothyroxine 50 mcg tablet 50 mcg PO SUTUTHSA tab 01/05/18 loratadine 10 mg tablet 10 mg PO QDAY 01/05/18 metoprolol tartrate 25 mg tablet 50 mg PO QHS tab 01/05/18 pantoprazole 40 mg tablet,delayed 40 mg PO QDAY 01/05/18 release aspirin 81 mg chewable tablet 81 mg PO DAILY 05/31/20 empagliflozin 25 mg tablet ea PO 05/31/20 Surgical History: Surgical History (Last Updated 02/16/18 @ 15:03 by Clarisa Izquierdo) s/p right shoulder rotator cuff 02/03/18 H/O removal of testicle Z98.890, Z90.79 right S/P appendectomy Z90.49 S/P hernia repair Z98.890, Z87.19 x2 Surgical History: no surgical history Lives: Spouse/ Significant Other Smoking Status: Never smoker Tobacco Use: Chew - *Family History Maternal Family History: Family History (Last Reviewed 01/21/18 @ 12:49 by Nilda Rodriguez) Grandfather Diabetes Myocardial infarction Grandmother Cancer Father Lung cancer Mother Diabetes History Items: No pertinent history Review of Systems Constitutional: Reports: Weakness. Denies: Chills, Fever, Weight Change HEENT: Denies: Head Aches, Sinus Congestion, Sinus Drainage Cardiovascular: Denies: Chest Pain, Palpitations Respiratory: Denies: Cough, Shortness of breath at rest, Sputum production Gastrointestinal: Denies: Abdominal Pain, Nausea, Vomiting Genitourinary: Denies: Dysuria Musculoskeletal: Reports: Arm Pain, Back Pain. Denies: Joint Pain, Joint Tenderness Skin: Denies: Rash, Wounds Neurological: Denies: Numbness, Tingling, Focal weakness Psychiatric: Denies: Anxiety, Depression, Homicidal Ideations, Suicidal Ideations Hematologic/ Lymphatic: Denies: Easy Bruising, Easy Bleeding VTE Information - Inpt Only VTE Present on Admission: No VTE Mechan Device Prophylaxis: None VTE Pharm Prophylaxis ordered?: Yes Patient Problems: Active and Suspected Problems (Last Reviewed 01/21/18 @ 12:49 by Nilda Rodriguez) COVID-19 (Acute) - Physical Exam Vitals/I&O's: Vital Signs Temp Pulse Resp BP Pulse Ox 98.5 F 87 16 126/66 H 97 10/29/20 15:31 10/29/20 19:05 10/29/20 19:05 10/29/20 19:05 10/29/20 19:05 Oxygen Flow Rate (L/min) 2 Oxygen Delivery Method Nasal Cannula Weight: 206 lb 12.697 oz Body Mass Index (BMI) 29.7 Finger Stick Blood Glucose 227 Intake and Output for Last 24 Hours 10/27/20 10/28/20 10/29/20 23:59 23:59 23:59 Intake Total 110 / 110 Balance 110 / 110 General: Alert, Oriented x3, Cooperative HEENT: Atraumatic, Normocephalic Neck: Supple, Negative Carotid Bruits Lungs: Clear to auscultation, Normal air movement Cardiovascular: Regular rate, Normal S1, Normal S2, No murmurs Abdomen: Bowel Sounds Present, Soft, Non Tender, Obese Extremities: No edema Skin: No rashes Musculoskeletal: No Tenderness to Palpation of Joints or Extremities Neurological: Neuro grossly intact Psych/Mental Status: Normal Affect, Appropriate Microbiology Past 72 Hours 10/29/20 16:15 Mucosa - Nose SARS-CoV-2 Antigen (Rapid) - Final SARS-CoV-2 (COVID 19) Laboratory Results 10/29/20 16:20: WBC 8.3, RBC 5.20, Hgb 15.2, Hct 45.3, MCV 87.1, MCH 29.2, MCHC 33.6, RDW Std Deviation 40.9, RDW Coeff of Lila 13.1, Plt Count 212, MPV 9.6, Immature Gran % (Auto) 0.500, Neut % (Auto) 71.4 H, Lymph % (Auto) 15.3 L, [place] % (Auto) 10.7 H, Eos % (Auto) 1.5, Baso % (Auto) 0.6, Absolute Neuts (auto) 5.9, Absolute Lymphs (auto) 1.26, Nucleated RBC % 0 10/29/20 16:20: Sodium 137, Potassium 3.7, Chloride 107, Carbon Dioxide 23.0, Anion Gap 7, BUN 10, Creatinine 0.95, Estim Creat Clear Calc 77.91, Est GFR (MDRD) Af Amer 101, Est GFR (MDRD) Non-Af 84, BUN/Creatinine Ratio 10.5, Glucose 107 H, Calcium 9.1, Total Bilirubin 0.90, Direct Bilirubin 0.19, AST 11 L, ALT 21, Alkaline Phosphatase 120 H, Troponin I < 0.015, Total Protein 6.4, Albumin 3.2, Globulin 3.2 Current Medications Sodium Chloride (0.9% Saline Lock 10 Ml Syringe) 10 - 40 ml IV UD PRN PRN Reason: SALINE FLUSH Assessment/Plan All Active Problems (Last Reviewed 01/21/18 @ 12:49 by Nilda Rodriguez) COVID-19 (Acute) Chronic Problems (Last Reviewed 01/21/18 @ 12:49 by Nilda Rodriguez) GERD (gastroesophageal reflux disease) (Chronic) Diabetes (Chronic) Hypertension (Chronic) High cholesterol (Chronic) Hypothyroid (Chronic) Plan 1. Acute COVID-19 infection?admit patient to Covid floor, initiate Covid protocol and procedures using strict isolation. Consult infectious disease specialist to consider remdesivir therapy, continue oxygen support and will add Decadron and albuterol inhaler as needed. 2. Diabetes?continue home medications 3. Hypertension?continue routine home medications 4. Hyperlipidemia?continue statin medication 5. Hypothyroidism?continue home medications and check TSH 6. DVT prophylaxis?low molecular weight heparin Inpatient E&M: [id number] Init Hosp L3
[2020-10-29 20:50] LABS: D-Dimer Quantitative (DVT/PE) 0.41 FEU/ug/m (0.27-0.49)
[2020-10-29 21:02] LABS: LDH 140 U/L (87-241)
[2020-10-29 21:06] LABS: Fibrinogen 441 mg/dl (203-444)
[2020-10-29 21:08] LABS: Procalcitonin 0.29 ng/mL (0.00-0.09)
[2020-10-29] MEDS: 0.9% Saline Lock 10 ML Syringe IV (22:02)
[2020-10-29] MEDS: amLODIPine 10 MG Tablet PO (22:03)
[2020-10-29] MEDS: DULoxetine Hcl 60 MG Capsule PO (22:03)
[2020-10-29] MEDS: Metoprolol(XL)Succ 50 MG Tablet PO (22:03)
[2020-10-29] MEDS: Atorvastatin Calcium 10 MG Tablet PO (22:03)
[2020-10-30] MEDS: cycloBENZAPRine HCl 10 MG Tablet PO (01:39)
[2020-10-30] MEDS: 0.9% Saline Lock 10 ML Syringe IV ×2 (01:39→11:25)
[2020-10-30 01:45] VITALS: BP 143/71; PULSE 79; RESP 16; TEMP 36.9; O2SAT 96
[2020-10-30 06:57] LABS: Hemoglobin 14.9 g/dL (13.0-16.5); Mean Corp Hgb Conc 32.4 g/dL (32-36); Mean Corpuscular Hgb 28.2 pg (27.0-32.0); Mean Corpuscular Volume 87.1 fL (80-94); Mean Platelet Vol. 9.6 fl (6.2-12.0); Platelet Count 212 K/mm3 (150-450); RBC Distribution Width CV 13.1 % (11.6-14.6); RBC Distribution Width SD 41.7 fl (35.1-43.9); Red Blood Count 5.28 M/mm3 (4.6-6.2); White Blood Count 6.8 K/mm3 (4.4-11.0)
[2020-10-30 07:24] LABS: ALB/GLOB Ratio 1.1 RATIO (0.9-2.4); AST(SGOT) 16 U/L (15-37); Alanine Aminotransfer ALT/SGPT 19 U/L (16-61); Albumin, Serum 3.1 g/dL (3.2-5.0); Alkaline Phosphatase 110 U/L (45-117); Anion Gap 4 (5-15); BUN 12 mg/dL (7-18); BUN/Creat Ratio 14.4 RATIO (10-20); Calcium,Total 9.2 mg/dL (8.5-10.1); Chloride 108 mmol/L (98-107); Creatinine, Serum 0.83 mg/dL (0.70-1.30); EST Glomerular Filtration Rate 98 mL/min (>60); Est Glom Filt Rate - Afr Amer 118 mL/min (>60); Estimated Creatinine Clearance 89.17 ml/min; Globulin 2.9 g/dL (2.2-4.2); Glucose 136 mg/dL (74-106); Potassium 4.4 mmol/L (3.5-5.1); Sodium Level 137 mmol/L (136-145)
[2020-10-30 07:45] VITALS: BP 110/69; PULSE 79; RESP 18; TEMP 36.6; O2SAT 94
[2020-10-30] MEDS: Loratadine 10 MG Tablet PO (07:56)
[2020-10-30] MEDS: Glimepiride 1 MG Tablet PO (07:56)
[2020-10-30] MEDS: Aspirin 81 MG TAB.CHEW PO (07:56)
[2020-10-30] MEDS: DULoxetine Hcl 60 MG Capsule PO (07:56)
[2020-10-30] MEDS: Pantoprazole Sodium 40 MG Tablet PO (07:57)
[2020-10-30] MEDS: Levothyroxine 50 MCG Tablet PO (07:57)
[2020-10-30] MEDS: Enoxaparin 40 MG/0.4 ML Syringe SC (07:57)
[2020-10-30] MEDS: Lisinopril 20 MG Tablet PO (07:57)
--- NOTE | 2020-10-30 08:39 | PN_ITS ---
Patient Problems: Active and Suspected Problems (Last Reviewed 01/21/18 @ 12:49 by Nilda Rodriguez) COVID-19 (Acute) Objective: Patient was found hypoxic required oxygen in the ER although he came with arm pain and lower back pain after he left heavy bag of feed for animals. Was tested positive for COVID-19. No fever. Vitals/I&O's: Vital Signs Temp Pulse Resp BP Pulse Ox 97.9 F 79 18 110/69 94 10/30/20 07:45 10/30/20 07:45 10/30/20 07:45 10/30/20 07:45 10/30/20 07:45 Oxygen Flow Rate (L/min) 2 Oxygen Delivery Method Room Air Weight: 194 lb 12.8 oz Body Mass Index (BMI) 27.9 Finger Stick Blood Glucose 227 Intake and Output for Last 24 Hours 10/28/20 10/29/20 10/30/20 23:59 23:59 23:59 Intake Total 110 / 110 250 / 250 Balance 110 / 110 250 / 250 Microbiology Past 72 Hours 10/29/20 21:43 Mucosa - Nasopharyngeal Respiratory Panel (PCR) - Final RSV B 10/29/20 16:15 Mucosa - Nose SARS-CoV-2 Antigen (Rapid) - Final SARS-CoV-2 (COVID 19) Laboratory Results 10/29/20 16:20: WBC 8.3, RBC 5.20, Hgb 15.2, Hct 45.3, MCV 87.1, MCH 29.2, MCHC 33.6, RDW Std Deviation 40.9, RDW Coeff of Lila 13.1, Plt Count 212, MPV 9.6, Immature Gran % (Auto) 0.500, Neut % (Auto) 71.4 H, Lymph % (Auto) 15.3 L, [place] % (Auto) 10.7 H, Eos % (Auto) 1.5, Baso % (Auto) 0.6, Absolute Neuts (auto) 5.9, Absolute Lymphs (auto) 1.26, Nucleated RBC % 0 10/29/20 16:20: Sodium 137, Potassium 3.7, Chloride 107, Carbon Dioxide 23.0, Anion Gap 7, BUN 10, Creatinine 0.95, Estim Creat Clear Calc 77.91, Est GFR (MDRD) Af Amer 101, Est GFR (MDRD) Non-Af 84, BUN/Creatinine Ratio 10.5, Glucose 107 H, Calcium 9.1, Total Bilirubin 0.90, Direct Bilirubin 0.19, AST 11 L, ALT 21, Alkaline Phosphatase 120 H, Troponin I < 0.015, Total Protein 6.4, Albumin 3.2, Globulin 3.2 10/29/20 16:20: Fibrinogen 441 10/29/20 16:20: Lactate Dehydrogenase 140 10/29/20 16:20: Procalcitonin 0.29 H 10/29/20 16:20: D-Dimer Quant (PE/DVT) 0.41 10/30/20 06:30: WBC 6.8, RBC 5.28, Hgb 14.9, Hct 46.0, MCV 87.1, MCH 28.2, MCHC 32.4, RDW Std Deviation 41.7, RDW Coeff of Lila 13.1, Plt Count 212, MPV 9.6 10/30/20 06:30: Sodium 137, Potassium 4.4, Chloride 108 H, Carbon Dioxide 25.0, Anion Gap 4 L, BUN 12, Creatinine 0.83, Estim Creat Clear Calc 89.17, Est GFR (MDRD) Af Amer 118, Est GFR (MDRD) Non-Af 98, BUN/Creatinine Ratio 14.4, Glucose 136 H, Calcium 9.2, Total Bilirubin 0.60, AST 16, ALT 19, Alkaline Phosphatase 110, Total Protein 6.0 L, Albumin 3.1 L, Globulin 2.9, Albumin/Globulin Ratio 1.1 Current Medications Albuterol Sulfate (Albuterol Sulfate 18 Gm Inhaler (200 Puffs)) 2 puff IH Q4H PRN PRN PRN Reason: SHORTNESS OF BREATH Amlodipine Besylate (Amlodipine 10 Mg Tablet) 10 mg PO QHS [facility] Last Admin: 10/29/20 22:03 Dose: 10 mg Documented by: Aspirin (Aspirin 81 Mg Tab.Chew) 81 mg PO DAILY [facility] Last Admin: 10/30/20 07:56 Dose: 81 mg Documented by: Atorvastatin Calcium (Atorvastatin Calcium 10 Mg Tablet) 10 mg PO QHS [facility] Last Admin: 10/29/20 22:03 Dose: 10 mg Documented by: Dexamethasone Sodium Phosphate (Dexamethasone 10 Mg/Ml Vial) 6 mg IV DAILY [facility] Duloxetine HCl (Duloxetine Hcl 60 Mg Capsule) 60 mg PO DAILY [facility] Last Admin: 10/30/20 07:56 Dose: 60 mg Documented by: Enoxaparin Sodium (Enoxaparin 40 Mg/0.4 Ml Syringe) 40 mg SC DAILY [facility] Last Admin: 10/30/20 07:57 Dose: 40 mg Documented by: Glimepiride (Glimepiride 1 Mg Tablet) 1 mg PO DAILYCM [facility] Last Admin: 10/30/20 07:56 Dose: 1 mg Documented by: Remdesivir 100 mg/ Sodium (Chloride) 250 mls @ 125 mls/hr IV DAILY [facility]; Protocol Stop: 11/02/20 11:59 Levothyroxine Sodium (Levothyroxine 50 Mcg Tablet) 50 mcg PO DAILY [facility] Last Admin: 10/30/20 07:57 Dose: 50 mcg Documented by: Lisinopril (Lisinopril 20 Mg Tablet) 20 mg PO DAILY [facility] Last Admin: 10/30/20 07:57 Dose: 20 mg Documented by: Loratadine (Loratadine 10 Mg Tablet) 10 mg PO DAILY [facility] Last Admin: 10/30/20 07:56 Dose: 10 mg Documented by: Metformin HCl (Metformin Hcl 750 Mg Tab.Er.24h) 750 mg PO DAILY [facility] Metoprolol Succinate (Metoprolol(Xl)Succ 50 Mg Tablet) 50 mg PO QHS [facility] Last Admin: 10/29/20 22:03 Dose: 50 mg Documented by: Miscellaneous Information (Inhaler, Assist Devices 1 Each Spacer) 1 each INHALATION PRN PRN PRN Reason: WITH ALBUTEROL INHALER Nutritional Formula (Lactose Free) (Glucerna Shake 120 Ml Liquid) 120 ml PO 4X/DAY [facility] Last Admin: 10/29/20 23:21 Dose: Not Given Documented by: Pantoprazole Sodium (Pantoprazole Sodium 40 Mg Tablet) 40 mg PO DAILY [facility] Last Admin: 10/30/20 07:57 Dose: 40 mg Documented by: Sodium Chloride (0.9% Saline Lock 10 Ml Syringe) 10 - 40 ml IV UD PRN PRN Reason: SALINE FLUSH Last Admin: 10/30/20 01:39 Dose: 10 ml Documented by: Tamsulosin HCl (Tamsulosin Hcl 0.4 Mg Capsule) 0.4 mg PO QHS [facility] STROKE Vital Signs/Narrative: Vital Signs Temp Pulse Resp BP Pulse Ox 10/30/20 07:45 97.9 F 79 18 110/69 94 Medical Necessity - Tobacco Use Smoking Status: Never smoker Tobacco Use: Chew Assessment/Plan All Active Problems (Last Reviewed 01/21/18 @ 12:49 by Nilda Rodriguez) COVID-19 (Acute) 1. Acute COVID-19 infection?admit patient to Covid floor, initiate Covid protocol and procedures using strict isolation. Consult infectious disease specialist to consider remdesivir therapy, continue oxygen support and will add Decadron and albuterol inhaler as needed. 2. Diabetes?continue home medications 3. Hypertension?continue routine home medications 4. Hyperlipidemia?continue statin medication 5. Hypothyroidism?continue home medications and check TSH 6. DVT prophylaxis?low molecular weight heparin
--- NOTE | 2020-10-30 09:42 | DCINST_ITS ---
- Discharge Diagnoses Current Active Problems: Current Active and Chronic Problems (Last Reviewed 01/21/18 @ 12:49 by Nilda Rodriguez) GERD (gastroesophageal reflux disease) (Chronic) Diabetes (Chronic) Hypertension (Chronic) High cholesterol (Chronic) Hypothyroid (Chronic) COVID-19 (Acute) You will use the following diet at home:: Calorie/Carbohydrate Controlled (specify 1200, 1400, etc), Cardiac Your food should be the consistency of: Regular Discharge Activity: May Not Drive Weight Bearing Status: Weight bearing as tolerated Call your doctor if you observe: Fever of 101 or Higher, Coldness, Increased Pain, Numbness or Tingling, Change in Color, Inability to urinate, Inability to have a bowel movement, Shortness of breath, Dizziness, Fainting spells, Swelling in the ankles, Chest pain, Prolonged hiccoughing, Increased palpitations (irregular heartbeat), Calf discomfort, Uncontrolled pain Additional Instructions: Patient agreed for COVID-19 PCR test and test is completed Patient needs to quarantine for 2 weeks from the onset of symptoms until COVID- 19 PCR test is negative. Patient wants to go home does not want to wait for the test result. Allergies/Adverse Reactions: Allergies No Known Allergies Allergy (Verified 08/03/18 11:00) Medications to take at Discharge lisinopril 20 mg tablet 20 mg PO DAILY 12/29/17 metformin 750 mg tablet,extended release 24 hr 750 mg PO DAILY 12/29/17 duloxetine 60 mg capsule,delayed release 60 mg PO DAILY cap 01/05/18 levothyroxine 50 mcg tablet 50 mcg PO DAILY tab 01/05/18 loratadine 10 mg tablet 10 mg PO QHS 01/05/18 aspirin 81 mg chewable tablet 81 mg PO DAILY 05/31/20 Amlodipine [Norvasc] 10 mg PO DAILY 10/29/20 Diclofenac Sodium 4 g TP BID 10/29/20 Glimepiride [Amaryl] 1 mg PO DAILY 10/29/20 Metoprolol Succinate [Toprol Xl] 50 mg PO QHS 10/29/20 Oxycodone HCl/Acetaminophen [Oxycodone-Acetaminophen 5-325] 1 ea PO Q6H PRN 10/29/20 Pantoprazole Sodium [Protonix] 40 mg PO DAILY 10/29/20 Tamsulosin HCl 0.4 mg PO QHS 10/29/20 Dexamethasone [Decadron] 6 mg PO DAILY 8 Days #8 tab 10/30/20 The following prescriptions were given: Dexamethasone [Decadron] 6 mg PO DAILY 8 Days #8 tab Transmission Status: Received by Room n House #44 Primary Care Physician: Maegan Workman NP, [employer] [NON-STAFF] - Please follow up with your Primary Care Physician in: in 2 week Test Results: Test results from this visit will be discussed in further detail at your follow- up appointment, if applicable.
--- NOTE | 2020-10-30 11:15 | NURSING ---
RN CM Assessment Introduced role of RN CM to patient Patience Hernández over the phone. Attempted to contact patient at bedside with no answer. agrees to participate in RN CM Assessment. ?Care providers, pharmacy, and demographics verified. Admit Dx: COVID Re-Admit: No Barriers/Issues: None PCP: Rachelle Burnett and Dr Dove Specialists: Dr Almonte- Sports Medicine Preferred Pharmacy: [facility] [employer] Insurance: [facility] A/B, O Rx Benefit:?Yes ?LNOK: - Patience Hernández LW/HPOA: Per patient has completed both. Primary HPOA- Patience Hernández. Aware this jingle writer does not see copy on file and aware if brought in a copy will be scanned on file. Living Arrangements: Lives with in a 2SH, 1 step to enter. Per patient can quarantine from her using a separate bathroom and sleeping in separate room. Per she has no s/s illness and not immunocompromised.? ADL?s: Independent with ambulation and ADLs Transportation: Both patient and drive, to transport upon DC and aware to wear masks when near each other. DME: [employer] HHC: None SNF: None Goal: Home and does not think will have any needs. Does have concern that the rapid COVID test may be a false positive and asking about being retested with PCR method- advised to s/w physician/nurse prior to discharge. Denies any other issues or concerns with DC planning at this time. DC PLAN: Home with no anticipated needs identified at this time. HENRY Cohen
[2020-10-30] MEDS: Ibuprofen 600 MG Tablet PO (11:26)
[2020-10-30] MEDS: dexAMETHasone 4 MG Tablet 6 MG PO (11:26)
[2020-10-30] MEDS: Famotidine 20 MG Tablet PO (11:26)
[2020-10-30] MEDS: Glucerna Shake 120 ML LIQUID PO (11:26)
--- NOTE | 2020-10-30 12:11 | PCM.HP.ID ---
Problem List (1) COVID-19 Status: Acute Reason for Consult: covid Consulted by: Dr. Graff History of Present Illness: The patient is a 65 year old M presented with back pain starting 10/24 after moving two 100lb bags of feed on 10/23. Pain was different from normal flares of back pain. works in a pharmacy. No known covid (+) contacts. He thinks he and his had covid in December, he had URI and lost sense of smell and taste at that time. Back pain worsened, saw chiropractor without improvement on 10/26, then came to ED, admitted, started on O2 and dex and remdesivir. Denies congestion, cough, SOB, fever, chills, n/v/d. feels fine at home. Feels much better this AM. Full ROS performed and neg except as noted above. - Medical History Past Medical History (Chronic Problems): Chronic Problems (Last Reviewed 01/21/18 @ 12:49 by Nilda Rodriguez) GERD (gastroesophageal reflux disease) (Chronic) Diabetes (Chronic) Hypertension (Chronic) High cholesterol (Chronic) Hypothyroid (Chronic) Allergies/Adverse Reactions: Allergies No Known Allergies Allergy (Verified 08/03/18 11:00) Home Medications: Ambulatory Orders Medication Instructions Recorded lisinopril 20 mg tablet 20 mg PO DAILY 12/29/17 metformin 750 mg tablet,extended 750 mg PO DAILY 12/29/17 release 24 hr duloxetine 60 mg capsule,delayed 60 mg PO DAILY cap 01/05/18 release levothyroxine 50 mcg tablet 50 mcg PO DAILY tab 01/05/18 loratadine 10 mg tablet 10 mg PO QHS 01/05/18 aspirin 81 mg chewable tablet 81 mg PO DAILY 05/31/20 Amlodipine [Norvasc] 10 mg PO DAILY 10/29/20 Diclofenac Sodium 4 g TP BID 10/29/20 Glimepiride [Amaryl] 1 mg PO DAILY 10/29/20 Metoprolol Succinate [Toprol Xl] 50 mg PO QHS 10/29/20 Oxycodone HCl/Acetaminophen 1 ea PO Q6H PRN 10/29/20 [Oxycodone-Acetaminophen 5-325] Pantoprazole Sodium [Protonix] 40 mg PO DAILY 10/29/20 Tamsulosin HCl 0.4 mg PO QHS 10/29/20 - Social History Tobacco Use: non-smoker Vital Signs Temp Pulse Resp BP Pulse Ox 97.9 F 79 18 110/69 94 10/30/20 07:45 10/30/20 07:45 10/30/20 07:45 10/30/20 07:45 10/30/20 07:45 Oxygen Flow Rate (L/min) 2 Oxygen Delivery Method Room Air Weight: 88.36 kg Body Mass Index (BMI) 27.9 Finger Stick Blood Glucose 227 Microbiology Past 72 Hours 10/29/20 21:43 Respiratory Panel (PCR) - Final Mucosa - Nasopharyngeal RSV B 10/29/20 16:15 SARS-CoV-2 Antigen (Rapid) - Final Mucosa - Nose SARS-CoV-2 (COVID 19) Laboratory Tests Past 24 Hrs 10/29/20 10/29/20 10/29/20 16:20 16:20 16:20 WBC 8.3 RBC 5.20 Hgb 15.2 Hct 45.3 MCV 87.1 MCH 29.2 MCHC 33.6 RDW Std Deviation 40.9 RDW Coeff of Lila 13.1 Plt Count 212 MPV 9.6 Immature Gran % (Auto) 0.500 Neut % (Auto) 71.4 H Lymph % (Auto) 15.3 L [place] % (Auto) 10.7 H Eos % (Auto) 1.5 Baso % (Auto) 0.6 Absolute Neuts (auto) 5.9 Absolute Lymphs (auto) 1.26 Nucleated RBC % 0 Fibrinogen 441 D-Dimer Quant (PE/DVT) Sodium 137 Potassium 3.7 Chloride 107 Carbon Dioxide 23.0 Anion Gap 7 BUN 10 Creatinine 0.95 Estim Creat Clear Calc 77.91 Est GFR (MDRD) Af Amer 101 Est GFR (MDRD) Non-Af 84 BUN/Creatinine Ratio 10.5 Glucose 107 H Calcium 9.1 Total Bilirubin 0.90 Direct Bilirubin 0.19 AST 11 L ALT 21 Alkaline Phosphatase 120 H Lactate Dehydrogenase Troponin I < 0.015 Total Protein 6.4 Albumin 3.2 Globulin 3.2 Albumin/Globulin Ratio Procalcitonin 10/29/20 10/29/20 10/29/20 16:20 16:20 16:20 WBC RBC Hgb Hct MCV MCH MCHC RDW Std Deviation RDW Coeff of Lila Plt Count MPV Immature Gran % (Auto) Neut % (Auto) Lymph % (Auto) [place] % (Auto) Eos % (Auto) Baso % (Auto) Absolute Neuts (auto) Absolute Lymphs (auto) Nucleated RBC % Fibrinogen D-Dimer Quant (PE/DVT) 0.41 Sodium Potassium Chloride Carbon Dioxide Anion Gap BUN Creatinine Estim Creat Clear Calc Est GFR (MDRD) Af Amer Est GFR (MDRD) Non-Af BUN/Creatinine Ratio Glucose Calcium Total Bilirubin Direct Bilirubin AST ALT Alkaline Phosphatase Lactate Dehydrogenase 140 Troponin I Total Protein Albumin Globulin Albumin/Globulin Ratio Procalcitonin 0.29 H 10/30/20 10/30/20 06:30 06:30 WBC 6.8 RBC 5.28 Hgb 14.9 Hct 46.0 MCV 87.1 MCH 28.2 MCHC 32.4 RDW Std Deviation 41.7 RDW Coeff of Lila 13.1 Plt Count 212 MPV 9.6 Immature Gran % (Auto) Neut % (Auto) Lymph % (Auto) [place] % (Auto) Eos % (Auto) Baso % (Auto) Absolute Neuts (auto) Absolute Lymphs (auto) Nucleated RBC % Fibrinogen D-Dimer Quant (PE/DVT) Sodium 137 Potassium 4.4 Chloride 108 H Carbon Dioxide 25.0 Anion Gap 4 L BUN 12 Creatinine 0.83 Estim Creat Clear Calc 89.17 Est GFR (MDRD) Af Amer 118 Est GFR (MDRD) Non-Af 98 BUN/Creatinine Ratio 14.4 Glucose 136 H Calcium 9.2 Total Bilirubin 0.60 Direct Bilirubin AST 16 ALT 19 Alkaline Phosphatase 110 Lactate Dehydrogenase Troponin I Total Protein 6.0 L Albumin 3.1 L Globulin 2.9 Albumin/Globulin Ratio 1.1 Procalcitonin - Other Studies Radiology: [] reviewed Other Studies: [] Route of nutrition/ use of supplements: [] Nutritional Intake: [] IV Site: [] Rowan Catheter: [] - Physical Exam General: Alert, Oriented x3, Cooperative, No apparent distress HEENT: Atraumatic, PERRLA, EOMI Neck: Supple, No Nodes Lungs: Clear to auscultation, Normal air movement Cardiovascular: Regular rate, Regular Rhythm Abdomen: Soft, Non Tender, Non-Distended Extremities: No edema Skin: No rashes IV Site: Peripheral, without redness Neurological: Cranial nerves II-XII grossly intact - Assessment/Plan Antibiotics: [] Assessment/Plan: [] Active and Suspected Problems (Last Reviewed 01/21/18 @ 12:49 by Nilda Rodriguez) COVID-19 (Acute) Covid with hypoxia - covid Ag positive, but overall low suspicion for true infection. Sx improved this AM, but was started on dex and remdesivir last night. Recommend checking PCR prior to discharge. If neg, no need for quarantine at home. If (+) or if PCR is not able to be done, would do 10 total days dex and quarantine for one more week. Will follow, thank you, d/w Dr. Graff
[2020-10-30] MEDS: METFORMIN HCL 750 MG TAB.ER.24H PO (12:29)
[2020-10-30 13:30] VITALS: BP 139/70; PULSE 90; RESP 20; TEMP 36.8; O2SAT 95
--- NOTE | 2020-10-30 13:58 | PCM.DC.SUM ---
Discharge Date and Diagnosis - Problem List Patient Problems: Active and Suspected Problems (Last Reviewed 01/21/18 @ 12:49 by Nilda Rodriguez) COVID-19 (Acute) Date of Admission: 10/29/20 Date of Discharge: 10/30/20 - Primary Discharge Diagnosis Acute Problems: Active Problems (Last Reviewed 01/21/18 @ 12:49 by Nilda Rodriguez) COVID-19 (Acute) - Secondary Discharge Diagnosis Chronic Problems: Chronic Problems (Last Reviewed 01/21/18 @ 12:49 by Nilda Rodriguez) GERD (gastroesophageal reflux disease) (Chronic) Diabetes (Chronic) Hypertension (Chronic) High cholesterol (Chronic) Hypothyroid (Chronic) Hospital Course and Treatment Summary of Care Provided: The patient is a 65 year old M with history of hypertension, diabetes mellitus and other comorbidities came to ER with right arm pain and lower back pain. In ED, his pulse ox dropped to 88% on room air and was put on 2 L of oxygen. COVID-19 rapid antigen test came positive loss patient further admitted on [facility] called floor. 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 He was tested negative about a week ago prior to colonoscopy. He has been tested 3 times negative and he doubts the positivity of the rapid Covid antigen test although I do not find the result. He denies fever, chills, loss of taste or smell, nausea, vomiting or diarrhea or abdominal pain. Chest x-ray reported no acute finding. Currently patient is on room air. ID was consulted and he agrees that COVID-19 PCR antigen may be false positive. Patient was called and convinced for COVID-19 PCR test done although he was initially want to benavides to home without test. Did not want to wait for the test result therefore discharged home. Patient was advised to quarantine for 2 weeks from the onset of the symptom until test is negative. Patient was advised that he will be called for the test result. He has history of chronic right shoulder pain with failed rotator cuff repair, osteoarthritis and subacromial impingement syndrome and had surgery by Dr. Almonte in March 2018. His back pain improved on Flexeril, duloxetine and Motrin. Empirically patient received remdesivir 2 dosages and Decadron. If COVID-19 PCR is positive, continue dexamethasone 6 mg daily for 8 more days and if negative discontinue it. Discharge medication reconciliation done. Discharge follow-up instructions completed. Discharge process discussed with the patient and all questions were answered to patient's satisfaction. Total time spent, exact 35 minutes on discharge meds reconciliation, examination, coordination of care with nurses and ancillary staff, review of imaging and blood test and discussion with the patient on follow-up instructions [] Patient was admitted as inpatient but was discharged because of sooner recovery than expected at time of admission. Patient Problems: Active and Suspected Problems (Last Reviewed 01/21/18 @ 12:49 by Nilda Rodriguez) COVID-19 (Acute) Objective: Seen and examined. Patient denies any COVID-19 symptoms. No fever. Patient denies shortness of breath and his pulse ox 94% on room air. 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 Physical exam General: Alert, Oriented x3, Cooperative HEENT: Atraumatic, PERRLA, EOMI, Normocephalic Oral: No Gingival or Mucosal Lesions/ Ulcerations Neck: Supple, No JVD, Negative Carotid Bruits Lungs: Air entry diminished in bilateral lung bases. No crepitation/rhonchi Cardiovascular: Regular rate, Regular Rhythm, Normal S1, Normal S2, No murmurs Abdomen: Bowel Sounds Present, Soft, Non Tender, Non-Distended : No renal angle tenderness. No suprapubic tenderness. Extremities: No edema, Capillary Refill Less than 3 Seconds Skin: No rashes, No breakdown Musculoskeletal: Mild tenderness over right upper back paraspinal muscle over lower posterior ribs. No Tenderness to Palpation of Joints or Extremities Neurological: Cranial nerves II-XII grossly intact, Deep Tendon Reflexes 2+/4 and Symmetrical, Neuro grossly intact Psych/Mental Status: Normal Affect, Appropriate. - Physical Exam Vitals/I&O's: Vital Signs Temp Pulse Resp BP Pulse Ox 97.9 F 79 18 110/69 94 10/30/20 07:45 10/30/20 07:45 10/30/20 07:45 10/30/20 07:45 10/30/20 07:45 Oxygen Flow Rate (L/min) 2 Oxygen Delivery Method Room Air Weight: 194 lb 12.8 oz Body Mass Index (BMI) 27.9 Finger Stick Blood Glucose 227 Intake and Output for Last 24 Hours 10/28/20 10/29/20 10/30/20 23:59 23:59 23:59 Intake Total 110 / 110 250 / 250 Balance 110 / 110 250 / 250 Microbiology Past 72 Hours 10/29/20 21:43 Mucosa - Nasopharyngeal Respiratory Panel (PCR) - Final RSV B 10/29/20 16:15 Mucosa - Nose SARS-CoV-2 Antigen (Rapid) - Final SARS-CoV-2 (COVID 19) Laboratory Results 10/29/20 16:20: WBC 8.3, RBC 5.20, Hgb 15.2, Hct 45.3, MCV 87.1, MCH 29.2, MCHC 33.6, RDW Std Deviation 40.9, RDW Coeff of Lila 13.1, Plt Count 212, MPV 9.6, Immature Gran % (Auto) 0.500, Neut % (Auto) 71.4 H, Lymph % (Auto) 15.3 L, [place] % (Auto) 10.7 H, Eos % (Auto) 1.5, Baso % (Auto) 0.6, Absolute Neuts (auto) 5.9, Absolute Lymphs (auto) 1.26, Nucleated RBC % 0 10/29/20 16:20: Sodium 137, Potassium 3.7, Chloride 107, Carbon Dioxide 23.0, Anion Gap 7, BUN 10, Creatinine 0.95, Estim Creat Clear Calc 77.91, Est GFR (MDRD) Af Amer 101, Est GFR (MDRD) Non-Af 84, BUN/Creatinine Ratio 10.5, Glucose 107 H, Calcium 9.1, Total Bilirubin 0.90, Direct Bilirubin 0.19, AST 11 L, ALT 21, Alkaline Phosphatase 120 H, Troponin I < 0.015, Total Protein 6.4, Albumin 3.2, Globulin 3.2 10/29/20 16:20: Fibrinogen 441 10/29/20 16:20: Lactate Dehydrogenase 140 10/29/20 16:20: Procalcitonin 0.29 H 10/29/20 16:20: D-Dimer Quant (PE/DVT) 0.41 10/30/20 06:30: WBC 6.8, RBC 5.28, Hgb 14.9, Hct 46.0, MCV 87.1, MCH 28.2, MCHC 32.4, RDW Std Deviation 41.7, RDW Coeff of Lila 13.1, Plt Count 212, MPV 9.6 10/30/20 06:30: Sodium 137, Potassium 4.4, Chloride 108 H, Carbon Dioxide 25.0, Anion Gap 4 L, BUN 12, Creatinine 0.83, Estim Creat Clear Calc 89.17, Est GFR (MDRD) Af Amer 118, Est GFR (MDRD) Non-Af 98, BUN/Creatinine Ratio 14.4, Glucose 136 H, Calcium 9.2, Total Bilirubin 0.60, AST 16, ALT 19, Alkaline Phosphatase 110, Total Protein 6.0 L, Albumin 3.1 L, Globulin 2.9, Albumin/Globulin Ratio 1.1 Current Medications Albuterol Sulfate (Albuterol Sulfate 18 Gm Inhaler (200 Puffs)) 2 puff IH Q4H PRN PRN PRN Reason: SHORTNESS OF BREATH Amlodipine Besylate (Amlodipine 10 Mg Tablet) 10 mg PO QHS [facility] Last Admin: 10/29/20 22:03 Dose: 10 mg Documented by: Aspirin (Aspirin 81 Mg Tab.Chew) 81 mg PO DAILY [facility] Last Admin: 10/30/20 07:56 Dose: 81 mg Documented by: Atorvastatin Calcium (Atorvastatin Calcium 10 Mg Tablet) 10 mg PO QHS [facility] Last Admin: 10/29/20 22:03 Dose: 10 mg Documented by: Dexamethasone (Dexamethasone 4 Mg Tablet) 6 mg PO DAILY [facility] Stop: 11/07/20 10:01 Duloxetine HCl (Duloxetine Hcl 60 Mg Capsule) 60 mg PO DAILY [facility] Last Admin: 10/30/20 07:56 Dose: 60 mg Documented by: Enoxaparin Sodium (Enoxaparin 40 Mg/0.4 Ml Syringe) 40 mg SC DAILY [facility] Last Admin: 10/30/20 07:57 Dose: 40 mg Documented by: Glimepiride (Glimepiride 1 Mg Tablet) [facility] Last Admin: 10/30/20 07:56 Dose: 1 mg Documented by: Remdesivir 100 mg/ Sodium (Chloride) 250 mls @ 125 mls/hr IV DAILY [facility]; Protocol Stop: 11/02/20 11:59 Levothyroxine Sodium (Levothyroxine 50 Mcg Tablet) 50 mcg PO DAILY [facility] Last Admin: 10/30/20 07:57 Dose: 50 mcg Documented by: Lisinopril (Lisinopril 20 Mg Tablet) 20 mg PO DAILY [facility] Last Admin: 10/30/20 07:57 Dose: 20 mg Documented by: Loratadine (Loratadine 10 Mg Tablet) 10 mg PO DAILY [facility] Last Admin: 10/30/20 07:56 Dose: 10 mg Documented by: Metformin HCl (Metformin Hcl 750 Mg Tab.Er.24h) 750 mg PO DAILY [facility] Metoprolol Succinate (Metoprolol(Xl)Succ 50 Mg Tablet) 50 mg PO QHS [facility] Last Admin: 10/29/20 22:03 Dose: 50 mg Documented by: Miscellaneous Information (Inhaler, Assist Devices 1 Each Spacer) 1 each INHALATION PRN PRN PRN Reason: WITH ALBUTEROL INHALER Nutritional Formula (Lactose Free) (Glucerna Shake 120 Ml Liquid) 120 ml PO 4X/DAY [facility] Last Admin: 10/29/20 23:21 Dose: Not Given Documented by: Pantoprazole Sodium (Pantoprazole Sodium 40 Mg Tablet) 40 mg PO DAILY [facility] Last Admin: 10/30/20 07:57 Dose: 40 mg Documented by: Sodium Chloride (0.9% Saline Lock 10 Ml Syringe) 10 - 40 ml IV UD PRN PRN Reason: SALINE FLUSH Last Admin: 10/30/20 01:39 Dose: 10 ml Documented by: Tamsulosin HCl (Tamsulosin Hcl 0.4 Mg Capsule) 0.4 mg PO QHS [facility] Discharge Activity: May Not Drive Weight Bearing Status: Weight bearing as tolerated Call your doctor if you observe: Fever of 101 or Higher, Coldness, Increased Pain, Numbness or Tingling, Change in Color, Inability to urinate, Inability to have a bowel movement, Shortness of breath, Dizziness, Fainting spells, Swelling in the ankles, Chest pain, Prolonged hiccoughing, Increased palpitations (irregular heartbeat), Calf discomfort, Uncontrolled pain Home Medications: Medications to take at Discharge lisinopril 20 mg tablet 20 mg PO DAILY 12/29/17 metformin 750 mg tablet,extended release 24 hr 750 mg PO DAILY 12/29/17 duloxetine 60 mg capsule,delayed release 60 mg PO DAILY cap 01/05/18 levothyroxine 50 mcg tablet 50 mcg PO DAILY tab 01/05/18 loratadine 10 mg tablet 10 mg PO QHS 01/05/18 aspirin 81 mg chewable tablet 81 mg PO DAILY 05/31/20 Amlodipine [Norvasc] 10 mg PO DAILY 10/29/20 Diclofenac Sodium 4 g TP BID 10/29/20 Glimepiride [Amaryl] 1 mg PO DAILY 10/29/20 Metoprolol Succinate [Toprol Xl] 50 mg PO QHS 10/29/20 Oxycodone HCl/Acetaminophen [Oxycodone-Acetaminophen 5-325] 1 ea PO Q6H PRN 10/29/20 Pantoprazole Sodium [Protonix] 40 mg PO DAILY 10/29/20 Tamsulosin HCl 0.4 mg PO QHS 10/29/20 Dexamethasone [Decadron] 6 mg PO DAILY 8 Days #8 tab 10/30/20 Following Prescriptions Were Given to Patient: Dexamethasone [Decadron] 6 mg PO DAILY 8 Days #8 tab Transmission Status: Received by [id number] Primary Care Physician: Maegan Workman NP, [employer] [NON-STAFF] - Please follow up with your Primary Care Physician in: in 2 week Medical Necessity - Tobacco Use Smoking Status: Never smoker Tobacco Use: Chew Meaningful Use Info Meaningful Use Diagnoses (Choose all that apply): None applicable Inpatient E&M: [id number] [facility]
--- NOTE | 2020-10-30 13:59 | NURSING ---
pt now agreeable to have PCR test per Dr. Graff, CPS phoned to obtain PCR. Pt can then be discharged and does not need to wait for results.
[2020-10-30 14:45] VITALS: BP 139/70; PULSE 90; RESP 20; TEMP 36.8
== END 2020-10-30 14:45 | disposition home or self-care (01) | DRG 552 ==
LOC: ED 18:58 → MS2 21:20
PROVIDERS: Internal Medicine Infectious Disease; Admitting Provider Family Medicine; Emergency Provider Emergency Medicine; Referring Provider Family Medicine; Visit Provider Internal Medicine
DX: M54.5 Low back pain (principal); M62.830 Muscle spasm of back; R09.02 Hypoxemia; K21.9 Gastro-esophageal reflux disease without esophagitis; E11.9 Type 2 diabetes mellitus without complications; I10 Essential (primary) hypertension; E03.9 Hypothyroidism, unspecified; Z79.84 Long term (current) use of oral hypoglycemic drugs; Z79.899 Other long term (current) drug therapy
CPT/HCPCS: 71045; 80048; 80053; 80076; 83615; 84145; 84484; 85025; 85027; 85379; 85384; 87426; 87633; 87635; 93005; 99285; J7040; J7050; A4216; U0002

== ENCOUNTER → 2021-06-17 14:00 | Outpatient (CLI) | payer MEDICARE, OTHER, SELFPAY ==
[2020-10-29 20:03] VITALS: BMI 27.9
--- NOTE | 2021-06-17 14:05 | RAD_ITS ---
STUDY: X-RAY - CERVICAL SPINE REASON FOR EXAM: Male, 66 years old. Neck pain. TECHNIQUE: 5 view(s) of the cervical spine were obtained. COMPARISON: None FINDINGS: Generalized osteopenia. Normal anterior atlantoaxial articulation. Normal odontoid process. Reversal of the normal lordotic curve, likely positional. Normal vertebral bodies and endplates. Diffuse uncovertebral and facet sclerosis. Intervertebral disc space narrowing at C4-5, C5-6 and C6-7 with osteophyte formation most marked at C5-6. The soft tissue structures are unremarkable. RAD/Cerv Spine 2 or 3 Views IMPRESSION: Osteopenia with lower cervical spondylosis most marked at C5-6. Electronically Signed: Adán Elliott MD at 10:48 EDT , Service support ,
== END ==
PROVIDERS: Referring Provider Anesthesiology Pain Medicine; Visit Provider Anesthesiology Pain Medicine
DX: M54.2 Cervicalgia (principal)
CPT/HCPCS: 72040

== ENCOUNTER → 2021-07-24 18:13 | Outpatient (CLI) | payer MEDICARE, OTHER, SELFPAY ==
[2020-10-29 20:03] VITALS: BMI 27.9
--- NOTE | 2021-07-24 18:15 | MRI_ITS ---
HISTORY: SEVERE BACK AND RT LEG PAIN,FALL EXAMINATION: MR Spine Lumbar W/O Contrast TECHNIQUE: Multiplanar and multisequence MR images of the lumbar spine. IV Contrast dosage and agent: COMPARISON: None FINDINGS: VERTEBRAE: Vertebral body heights are preserved. Normal vertebral bodies and posterior elements. VERTEBRAL ALIGNMENT: No spondylolisthesis. There is preservation of the normal lumbar lordosis. CORD: T12-L1 conus medullaris. Imaged portion of cord has normal signal. L1/L2: Normal disc height and morphology. Normal spinal canal, lateral recesses and neuroforamina. L2/L3: Normal disc height and morphology. Normal spinal canal, lateral recesses and neuroforamina. L3/L4: Normal disc height and morphology. Normal spinal canal, lateral recesses and neuroforamina. L4/L5: Posterior right central superior disc extrusion with underlying broad-based posterior disc bulge, with disc extending 6.5 mm posterior to the vertebral body and 1 cm cephalad to the inferior endplate of L4. Mild bilateral ligamentum flavum and facet hypertrophy. Together findings cause moderate to severe spinal canal stenosis.. There is moderate to severe right lateral recess narrowing with posterior mass-effect on the right L5 rootlets. Mild bilateral neural femoral stenosis L5/S1: Normal disc height and morphology. Normal spinal canal, lateral recesses and neuroforamina. SOFT TISSUES: Unremarkable. MRI/Spine Lumbar (Routine) IMPRESSION: L4-5 posterior superior disc extrusion and posterior element degenerative change with moderate to severe spinal stenosis, moderate to severe right lateral recess narrowing, and mild neuroforaminal stenosis with mass-effect on the right L5 nerve rootlets in the right lateral recess. at 2333 Reported and signed by: Dom Montano MD Electronically Signed: Dom Montano MD at 23:31 EDT Tel , Service support ,
== END ==
PROVIDERS: Referring Provider Anesthesiology Pain Medicine; Visit Provider Anesthesiology Pain Medicine
DX: M51.16 Intervertebral disc disorders with radiculopathy, lumbar region (principal); M51.17 Intervertebral disc disorders with radiculopathy, lumbosacral region
CPT/HCPCS: 72148

== ENCOUNTER → 2021-08-09 16:06 | Outpatient (CLI) | payer MEDICARE, OTHER, SELFPAY ==
[2021-08-09 17:41] LABS: PSA,Total - Annual Screen 0.64 ng/mL (0.00-4.00)
== END ==
PROVIDERS: Visit Provider Urology
DX: R35.1 Nocturia (principal)
CPT/HCPCS: 36415; 84153; 84403; G0103

== ENCOUNTER 2021-08-16 13:32 | Observation (INO) | payer MEDICARE, OTHER, SELFPAY ==
--- NOTE | 2021-08-09 16:07 | EKG12_ITS ---
Test Reason : PREOP Blood Pressure : / mmHG Vent. Rate : 073 BPM Atrial Rate : 073 BPM P-R Int : 182 ms QRS Dur : 082 ms QT Int : 362 ms P-R-T Axes : 014 033 037 degrees QTc Int : 398 ms Normal sinus rhythm Normal ECG Confirmed by BIENVENIDO PERAZA, CHUY ([id number]), senior technical editor LAURY MONSIVAIS ([id number]) on 08/12/2021 2:09:37 PM Referred By: ALEXIA Confirmed By:CHUY FARIA MD
[2021-08-09 17:15] LABS: Absolute Lymphocyte Count 1.98 X10^3/uL (0.83-4.51); Absolute Neutrophil Count 5.7 X10^3/uL (2.0-7.7); Basophil# 0.05 X10^3/uL; Basophil% 0.6 % (0-1); Eosinophil# 0.17 X10^3/uL; Hematocrit 42.3 % (40-54); Hemoglobin 14.5 g/dL (13.0-16.5); Lymphocyte # 1.98 X10^3/ul (0.83-4.51); Lymphocyte % 22.9 % (19-41); Mean Corp Hgb Conc 34.3 g/dL (32-36); Mean Corpuscular Hgb 29.1 pg (27.0-32.0); Mean Corpuscular Volume 84.8 fL (80-94); Mean Platelet Vol. 9.9 fl (6.2-12.0); Monocyte# 0.66 X10^3/uL; Monocyte% 7.6 % (0-10); NRBC Flagged by Analyzer 0 % (0-5); Neutrophil # 5.69 X10^3/uL (2.7-7.7); Platelet Count 260 K/mm3 (150-450); RBC Distribution Width CV 15.2 % (11.6-14.6); RBC Distribution Width SD 46.4 fl (35.1-43.9); Red Blood Count 4.99 M/mm3 (4.6-6.2); White Blood Count 8.6 K/mm3 (4.4-11.0)
[2021-08-09 17:37] LABS: Anion Gap 6 (5-15); BUN 4 mg/dL (7-18); BUN/Creat Ratio 4.5 RATIO (10-20); Calcium,Total 10.3 mg/dL (8.5-10.1); Chloride 104 mmol/L (98-107); Creatinine, Serum 0.89 mg/dL (0.70-1.30); EST Glomerular Filtration Rate 90 mL/min (>60); Est Glom Filt Rate - Afr Amer 109 mL/min (>60); Glucose 274 mg/dL (74-106); Potassium 3.7 mmol/L (3.5-5.1); Sodium Level 134 mmol/L (136-145)
[2021-08-09 19:16] LABS: Magnesium 1.7 mg/dL (1.6-2.6); Thyroid Stim Hormone (TSH) 1.54 uIU/mL (0.358-3.74)
[2021-08-11 17:23] LABS: Hepatitis A AB, Total Negative (Negative)
[2021-08-12 08:55] LABS: HIV - WCH Non-Reactive (Nonreactive); Hepatitis B Surface Antibody Non-Reactive; Hepatitis C Antibody Non-Reactive (Nonreactive)
--- NOTE | 2021-08-14 16:30 | HP.PCM_ITS ---
History and Physical Date of Admission: 08/15/21 [facility] [id number] [id number] OFFICE VISITDate of Service: 08/02/21 MR#:[id number]:[id number]: ROD ADAMRep #:[id number] Provider:Dr. Kwan Connell, DOAge/Sex: 66/M Location:[place]:Signed Intake Intake Visit Reasons: Lumbar spine Chief Complaint: Covid 19/Hypoxia Allergies No Known Allergies Allergy (Verified 08/02/21 11:15) Medications lisinopril 20 mg tablet 20 mg PO DAILY 12/29/17 [History Confirmed 08/02/21] metformin 750 mg tablet,extended release 24 hr 750 mg PO DAILY 12/29/17 [History Confirmed 08/02/21] duloxetine 60 mg capsule,delayed release 60 mg PO DAILY cap 01/05/18 [History Confirmed 08/02/21] levothyroxine 50 mcg tablet 50 mcg PO DAILY tab 01/05/18 [History Confirmed 08/02/21] loratadine 10 mg tablet 10 mg PO QHS 01/05/18 [History Confirmed 08/02/21] aspirin 81 mg chewable tablet 81 mg PO DAILY 05/31/20 [History Confirmed 08/02/21] amlodipine 10 mg PO DAILY 10/29/20 [History Confirmed 08/02/21] diclofenac sodium 4 g TP BID 10/29/20 [History Confirmed 08/02/21] oxycodone-acetaminophen 1 ea PO Q6H PRN 10/29/20 [History Confirmed 08/02/21] glimepiride 1 mg tablet 1 mg PO DAILY 08/02/21 [History Confirmed 08/02/21] metoprolol succinate 50 mg tablet,extended release 24 hr 50 mg PO QHS 08/02/21 [History Confirmed 08/02/21] pantoprazole 40 mg tablet,delayed release 40 mg PO DAILY 08/02/21 [History Confirmed 08/02/21] [facility] Medical History Acid reflux Cervical disc disorder at C6-C7 level with radiculopathy Cervicalgia Diabetes Hyperlipidemia Hypertension Hypothyroidism Other cervical disc degeneration, unspecified cervical region Pneumonia Radiculopathy of cervical region Radiculopathy of cervicothoracic region Surgical History H/O removal of testicle S/P appendectomy S/P hernia repair s/p right shoulder rotator cuff Family History Grandfather Diabetes Myocardial infarction Grandmother Cancer Father Lung cancer Mother Diabetes Social History Smoking Status: Never smoker HPI Lumbar spine Details: Parts of this documentation were recorded by a scribe, this documentation accurately reflects the service provided and the decisions made by me, Dr. Kwan Connell, DO 08/02/21 1055. ROD ADAM is a 66 year old M here today for lumbar spine pain. Patient received an MRI on 07/24/[address] Mcdaniels for the results. Dr. Mcdaniels sent him over to us based on those results. Patient states his back pain started about the 3rd week of April. Patient states in April he was prying a bar off a barn and the board broke and he fell back onto a 2X4 board. Patient states it started in his left hip. Patient states he felt so good after the injection that he went back to where he injured him self the first time. a week later all of his pain switch to the right hip. Patient when back to see Enedelia and received another injection that did not help. Patient returned to Dr. Mcdaniels at least 3 times after that with no relief. Patient has gone through some PT but he had no help with his pain. Patient states that his hip pain more coming from having bone on bone and not so much from his hip. Patient states he has two bulging discs in his lumbar spine. Patient states he has pain that starts at his belt line moves into his right buttocks and down his right leg to his toes. Patient states he does have numbness and tingling in his right leg. Patient states he is unable to sleep or get comfortable. Patient received two injection in his right hip once with Dr. Mcdaniels that made is whole right leg numb causing him to fall. Rod is a most pleasant 66-year-old gentleman has chief complaint of severe pain in his right buttocks that radiates down the right thigh down the right leg in a classic L5 dermatome. This started the third week of April. He has gotten some injections by that have helped him. On the of last month he had an MRI scan done the demonstrated that he has a very large herniation at L4- 5 on the right side. He denies any bowel or bladder dysfunction. On examination he has very positive tension signs very positive straight leg raising marked weakness of the anterior tibialis and weakness of the EHL that is severe on the right side. He has no long tract signs. Clonus is absent Babinski's are downgoing. He needs surgical decompression as soon as is reasonably possible. We will schedule him for lumbar laminectomy discectomy L4-5 on the right in the not too distant future. I will see him again 1 week prior to surgery. Coding Level of Care Code Off vis,new,level 3 Diagnoses Herniated nucleus pulposus, L4-5 right M51.26 Time Spent (min) 35 Assessment and Plan Assessment and Plan (1) Herniated nucleus pulposus, L4-5 right:
--- NOTE | 2021-08-14 16:32 | PCM.HP.BLA ---
History and Physical Date of Admission: 08/15/21 [facility] [id number] [phone] OFFICE VISITDate of Service: 08/02/21 MR#:[id number]:[id number]: ROD ADAMRep #:[id number] Provider:Dr. Kwan Connell, DOAge/Sex: 66/M Location:[place]:Signed Intake Intake Visit Reasons: Lumbar spine Chief Complaint: Covid 19/Hypoxia Allergies No Known Allergies Allergy (Verified 08/02/21 11:15) Medications lisinopril 20 mg tablet 20 mg PO DAILY 12/29/17 [History Confirmed 08/02/21] metformin 750 mg tablet,extended release 24 hr 750 mg PO DAILY 12/29/17 [History Confirmed 08/02/21] duloxetine 60 mg capsule,delayed release 60 mg PO DAILY cap 01/05/18 [History Confirmed 08/02/21] levothyroxine 50 mcg tablet 50 mcg PO DAILY tab 01/05/18 [History Confirmed 08/02/21] loratadine 10 mg tablet 10 mg PO QHS 01/05/18 [History Confirmed 08/02/21] aspirin 81 mg chewable tablet 81 mg PO DAILY 05/31/20 [History Confirmed 08/02/21] amlodipine 10 mg PO DAILY 10/29/20 [History Confirmed 08/02/21] diclofenac sodium 4 g TP BID 10/29/20 [History Confirmed 08/02/21] oxycodone-acetaminophen 1 ea PO Q6H PRN 10/29/20 [History Confirmed 08/02/21] glimepiride 1 mg tablet 1 mg PO DAILY 08/02/21 [History Confirmed 08/02/21] metoprolol succinate 50 mg tablet,extended release 24 hr 50 mg PO QHS 08/02/21 [History Confirmed 08/02/21] pantoprazole 40 mg tablet,delayed release 40 mg PO DAILY 08/02/21 [History Confirmed 08/02/21] [facility] Medical History Acid reflux Cervical disc disorder at C6-C7 level with radiculopathy Cervicalgia Diabetes Hyperlipidemia Hypertension Hypothyroidism Other cervical disc degeneration, unspecified cervical region Pneumonia Radiculopathy of cervical region Radiculopathy of cervicothoracic region Surgical History H/O removal of testicle S/P appendectomy S/P hernia repair s/p right shoulder rotator cuff Family History Grandfather Diabetes Myocardial infarction Grandmother Cancer Father Lung cancer Mother Diabetes Social History Smoking Status: Never smoker HPI Lumbar spine Details: Parts of this documentation were recorded by a scribe, this documentation accurately reflects the service provided and the decisions made by me, Dr. Kwan Connell, DO 08/02/21 1055. ROD ADAM is a 66 year old M here today for lumbar spine pain. Patient received an MRI on 07/24/[address] Mcdaniels for the results. Dr. Mcdaniels sent him over to us based on those results. Patient states his back pain started about the 3rd week of April. Patient states in April he was prying a bar off a barn and the board broke and he fell back onto a 2X4 board. Patient states it started in his left hip. Patient states he felt so good after the injection that he went back to where he injured him self the first time. a week later all of his pain switch to the right hip. Patient when back to see Enedelia and received another injection that did not help. Patient returned to Dr. Mcdaniels at least 3 times after that with no relief. Patient has gone through some PT but he had no help with his pain. Patient states that his hip pain more coming from having bone on bone and not so much from his hip. Patient states he has two bulging discs in his lumbar spine. Patient states he has pain that starts at his belt line moves into his right buttocks and down his right leg to his toes. Patient states he does have numbness and tingling in his right leg. Patient states he is unable to sleep or get comfortable. Patient received two injection in his right hip once with Dr. Mcdaniels that made is whole right leg numb causing him to fall. Rod is a most pleasant 66-year-old gentleman has chief complaint of severe pain in his right buttocks that radiates down the right thigh down the right leg in a classic L5 dermatome. This started the third week of April. He has gotten some injections by that have helped him. On the of last month he had an MRI scan done the demonstrated that he has a very large herniation at L4-5 on the right side. He denies any bowel or bladder dysfunction. On examination he has very positive tension signs very positive straight leg raising marked weakness of the anterior tibialis and weakness of the EHL that is severe on the right side. He has no long tract signs. Clonus is absent Babinski's are downgoing. He needs surgical decompression as soon as is reasonably possible. We will schedule him for lumbar laminectomy discectomy L4-5 on the right in the not too distant future. I will see him again 1 week prior to surgery. Coding Level of Care Code Off vis,new,level 3 Diagnoses Herniated nucleus pulposus, L4-5 right M51.26 Time Spent (min) 35 Assessment and Plan Assessment and Plan (1) Herniated nucleus pulposus, L4-5 right:
[2021-08-15] VITALS (15 sets, daily range): BP systolic 115–151; BP diastolic 65–118; PULSE 71–87; RESP 16–18; TEMP 35.9–37.7; O2SAT 92–100; BMI 29.7
[2021-08-15] MEDS: Acetaminophen 500 MG Tablet 1000 MG PO (07:00)
[2021-08-15] MEDS: Lactated Ringers 1,000 ML 100 ML IV ×4 (07:20→13:30)
[2021-08-15] MEDS: Insulin Lispro 100 UNIT/ML INSULN.PEN SC (08:12)
[2021-08-15 08:21] LABS: Bedside Glucose 221 mg/dL (70-110)
--- NOTE | 2021-08-15 08:30 | DISC_PTH ---
PATIENT: JONATHAN ADAM LOC: MS3 U#:[id number] AGE/SX: 66/M ROOM: [facility] [place] RE08/16/[address]: Dr. Stanislav Gupta DO : 1955 BED: 1 DIS: 08/17/2021 SPEC #: [id number] RECD: 08/15/21 15:30 STATUS: JENNIFER REQ #: [id number] JENNA: 08/15/21 08:[address]: Kwan Connell DEPT: SURGICAL PATHOLOGY RECD BY: Juana Hodge ENTERED: 08/16/21 12:00 SP TYPE: DISC OTHR DR: DO Dr. Courtney Ron MD Tissues: Intervertebral disc, NOS Procedures: Surgery Specimen Level III Comments: @ Ordering doctor for SUIII edited from to @ by FRANCHESKA at 08/16/21 154 @ Submitting doctor edited from to @ by RGOOD at 08/16/21 1540 HEADER OPERATION: ERAS, lumbar laminectomy L4-L5 PRE-OP DIAGNOSIS: Herniated nucleus pulposus, L4-L5 right TISSUE SUBMITTED: Lumbar L4-L5 disc MICROSCOPIC DIAGNOSIS Lumbar disc, L4-L5, discectomy: Fragments of intervertebral disc with degenerative change. AM:matias 08/19/2021 MICROSCOPIC DESCRIPTION Slides are reviewed. GROSS DESCRIPTION Received in fixative is one container labeled with the patient's name and designated lumbar L4-L5 disc. The specimen consists of multiple irregular fragments of roper, indurated tissue that in aggregate measure 3 x 2.5 x 0.8 cm. 3D Technologist sections are submitted in one cassette. / SJ:matias 08/16/21 TC:5 CPT: 59331
--- NOTE | 2021-08-15 08:30 | RAD_ITS ---
STUDY: X-RAY - LUMBAR SPINE REASON FOR EXAM: Male, 66 years old. ERAS, LAMINECTOMY L4-5, PORTABLE IN OR TECHNIQUE: 1 view(s) of the lumbar spine were obtained. COMPARISON: None FINDINGS: The localization instrument is seen posterior to the L4-L5 disc space level. RAD/Spine 1 View Any Level IMPRESSION: The localization clip is seen posterior to the L4-L5 disc space level. Electronically Signed: Donnie Jones MD at 10:59 EDT , Service support ,
[2021-08-15] MEDS: Cefazolin 2 GM in 0.9% Normal Saline 100 ML IV (08:45)
[2021-08-15] MEDS: THROMBIN (RECOMBINANT) 20,000 UNIT VIAL 20000 UNIT TOPICAL (10:13)
--- NOTE | 2021-08-15 11:49 | PCM.OPRPT ---
Report of Operation Date of Procedure: 08/15/21 Description of Surgical Findings:: Preoperative diagnosis: Herniated disc L4-5 with severe right L5 radiculopathy Postoperative diagnosis: The same Procedure: Lumbar laminectomy discectomy L4-5 on the right CPT code 93393 Surgeon: Dr. Connell physical laboratory assistant: Bon GOINS and Anjana GOINS Anesthesia: General endotracheal anesthesia administered by [facility] Estimated blood loss: Less than 30 cc Drains: Medium Hemovac Complications: None Procedure: Patient was taken to the OR where he was placed under general endotracheal anesthesia. A Rowan catheter was inserted. Neuro monitoring placed their leads and the patient. The patient was then placed in the prone position on the Messi frame. Care was taken to protect his bony prominences as ulnar nerves of both elbows his brachial plexus on both sides the cervical spine and facial features and the genitalia. The back was then prepped and draped in standard fashion. I then made a longitudinal incision centered over L4 5 subcutaneous tissues were incised the length of the skin incision. I then opened the lumbar fascia using cautery to the right of the spinous processes and elevated the paravertebral muscles off the spinous process and lamina of L4. An intraoperative x-ray was taken to assure that we were indeed at the proper level which we were. Then elevated the paravertebral muscles off the top of the lamina of L5 and used instruments to remove areolar tissue off of the ligamentum flavum. Argelia retractor was then put in place. I then elevated the ligamentum flavum off the underside of the lamina of L4. The laminectomy was then carried out using 45 degree Kerrison rongeurs both 3 mm and 4 mm until the ligamentum flavum was released. I then split the ligamentum flavum in its midline with a protective instrument underneath cut the midline and then used curettes to release it off the top of the lamina of L5. I then use a 45 degree Kerrison rongeurs to remove the ligamentum flavum and go all the way out to the lateral recess. This includeed opening the very medial portion of the L5 superior facet to open the lateral recess completely. This was done I then used a retractor to retract and identify free fragments of the nerve that had gone above the disc. The tear in the disc was obvious. I express more material from within the disc by simply pressing on the bulging annulus. Pituitaries were used to remove that I then removed freed disc fragments quite a few in number from above the disc. This completely decompressed the L5 nerve root. I also checked the foramen and it was open. Note that during the case we thoroughly irrigated every 10 minutes or so with sterile saline. The reason for this is because he is diabetic and his last hemoglobin A1c was over 9. This makes him more susceptible to infection of course. This has been discussed with him and his and they both understood that he is at increased risk because of that. I explained to him that because he has been in a wheelchair for over a month and unable to walk hardly at all that we would take a small risk to go ahead and decompress his L5 nerve. Likely no implants were planned or the case would have probably been canceled had implants being used. Bleeding was controlled with bipolar cautery and thrombin-soaked Gelfoam until we had an excellent and very dry field. After the last a washing we placed a amnionic membrane directly over the nerve root and the dura to prevent adhesions in the future. Gelfoam was placed over the top of this. A medium Hemovac drain was inserted. We then began closure first closing the lumbar fascia using [id number] suture with #1 Vicryl followed by closure of the subcutaneous tissues with 2-0 Vicryl in interrupted fashion. The skin was approximated using skin clips. Sterile dressings were then applied. He was then moved to his hospital bed and recovered in the OR and taken to recovery in satisfactory condition. This is the end of operative summary on Rod Hernández. This is Dr. Connell dictating.
[2021-08-15 12:05] LABS: Bedside Glucose 124 mg/dL (70-110)
--- NOTE | 2021-08-15 13:09 | SUR.PHASEI ---
O2 mask at 6L on until 1345 per ERAS order
--- NOTE | 2021-08-15 13:13 | SUR.PHASEI ---
Awaiting clearance to send patient to [facility] [place]
--- NOTE | 2021-08-15 13:33 | PCS.PANDOC ---
PANDEMIC DOCUMENTATION INITIATED: Date: 07/15/2021 Time: 190
[2021-08-15] MEDS: Morphine 4 MG/ML Syringe IV ×3 (14:45→21:11)
--- NOTE | 2021-08-15 15:55 | PCM.PROGNOTE ---
Documented by User: LIDYA Castañeda 08/15/21 16:01 Subjective Subjective Patient seen and examined. Patient states that his pain is 4 out of 10, worse when moving or coughing however states that it is controlled at this time. Patient denies nausea vomiting. Objective Data Objective Data Vital Signs: Vital Signs Temp Pulse Resp BP Pulse Ox 98.0 F 74 18 117/66 92 08/15/21 14:27 08/15/21 14:27 08/15/21 14:27 08/15/21 14:27 08/15/21 15:07 Oxygen Flow Rate (L/min) 6 Oxygen Delivery Method Room Air Weight: 207 lb 10.807 oz Body Mass Index (BMI) 29.7 Intake & Output: Intake and Output for Last 24 Hours 08/13/21 08/14/21 08/15/21 23:59 23:59 23:59 Intake Total 2215.5 / 2215.5 Output Total 250 / 250 Balance 1965.5 / 1965.5 Lab / Micro Data Result Diagrams: 08/09/21 16:33 08/09/21 16:33 Labs: Laboratory Results - last 24 hr 08/15/21 07:57: POC Glucose 221 H 08/15/21 11:59: POC Glucose 124 H Micro: Microbiology 08/09/21 16:35 Nasal Secretion Nasal Screen MRSA/MSSA - Final 08/09/21 16:10 Interface Orders SARS-CoV-2 Antigen (Rapid) - Final Physical Exam Const alert, oriented x3 and no apparent distress General Appearance: cooperative HEENT normocephalic and head/scalp atraumatic Eyes conjunctivae normal and no scleral icterus Neck supple and no JVD General: trachea midline Resp normal respiratory effort, normal air movement and clear to auscultation bilaterally Cardio regular rate, regular rhythm, S1 normal heart sound and S2 normal heart sound GI normal to inspection, nondistended, normoactive bowel sounds, soft to palpation and non-tender Extremity normal capillary refill and no clubbing, cyanosis or edema General Extremity: no tenderness to palpation of joints or extremities Skin General Skin Exam: no breakdown and turgor normal Lesions: no lesions Rashes: no rashes Neuro no focal motor deficits and no sensory deficits noted Speech: speech normal Motor Exam: Negative for general weakness Psych thought process normal, cooperative and affect normal Appearance: appropriate Assessment & Plan Assessment/Plan (1) Herniated nucleus pulposus, L4-5 right: PLAN: 1. Herniated disc L4-L5 with severe right L5 radiculopathy -Underwent lumbar laminectomy discectomy L4-L5 on the right with Dr. Connell 08/15/2021 -Pain management regimen ordered per surgeon -CBC and CMP ordered for a.m. 2. Hypertension -Vital signs stable postop -Continue home medication regimen including amlodipine, lisinopril, metoprolol. -Vital signs per protocol 3. Diabetes mellitus type 2 -AC at bedtime blood sugars with sliding scale insulin ordered -Continue glimepiride and Metformin We will continue all other medications related to patient's chronic diseases DVT prophylaxis-SCDs This patient was seen by LIDYA Castañeda under the supervision of Dr. Gandhi. Documented by User: Dr. Courtney Gandhi MD 08/15/21 20:44 Objective Data Lab / Micro Data Result Diagrams: 08/09/21 16:33 08/09/21 16:33
[2021-08-15] MEDS: Cefazolin 1 GM/50 ML BAG IV ×2 (16:29→23:36)
[2021-08-15] MEDS: Ensure Surgery 237 ML LIQUID PO (18:17)
[2021-08-15 18:21] LABS: Bedside Glucose 112 mg/dL (70-110)
[2021-08-15] MEDS: Ondansetron 4 MG/2 ML Vial IV (21:12)
[2021-08-15] MEDS: Senna/Docusate Sodium 1 Tablet 2 TABLET PO (21:12)
[2021-08-15] MEDS: Metoprolol(XL)Succ 50 MG Tablet PO (21:12)
[2021-08-15] MEDS: diazePAM 5 MG Tablet PO (21:12)
[2021-08-15] MEDS: Famotidine 20 MG Tablet PO (21:12)
[2021-08-15] MEDS: 0.9% NaCl Peripheral Flush Adult/Peds IV (21:13)
[2021-08-15] MEDS: oxyCODONE 5 MG Tablet PO (23:16)
[2021-08-15] MEDS: Zolpidem Tartrate 5 MG Tablet PO (23:16)
[2021-08-15 23:45] LABS: Bedside Glucose 174 mg/dL (70-110)
[2021-08-16] VITALS (10 sets, daily range): BP systolic 111–156; BP diastolic 56–88; PULSE 72–98; RESP 13–24; TEMP 36.5–37.9; O2SAT 87–97
[2021-08-16] MEDS: Levothyroxine 50 MCG Tablet PO (03:41)
[2021-08-16] MEDS: oxyCODONE 5 MG Tablet PO ×3 (03:41→21:36)
[2021-08-16] MEDS: diazePAM 5 MG Tablet PO (03:41)
[2021-08-16 05:22] LABS: Absolute Lymphocyte Count 1.25 X10^3/uL (0.83-4.51); Absolute Neutrophil Count 10.7 X10^3/uL (2.0-7.7); Basophil# 0.06 X10^3/uL; Basophil% 0.5 % (0-1); Eosinophil# 0.06 X10^3/uL; Eosinophils% 0.5 % (0-5); Hematocrit 37.5 % (40-54); Hemoglobin 12.7 g/dL (13.0-16.5); Lymphocyte # 1.25 X10^3/ul (0.83-4.51); Lymphocyte % 9.5 % (19-41); Mean Corp Hgb Conc 33.9 g/dL (32-36); Mean Corpuscular Volume 85.6 fL (80-94); Mean Platelet Vol. 9.8 fl (6.2-12.0); Monocyte# 1.03 X10^3/uL; Monocyte% 7.9 % (0-10); NRBC Flagged by Analyzer 0 % (0-5); Neutrophil # 10.65 X10^3/uL (2.7-7.7); Neutrophil % 81.1 % (47-70); Platelet Count 203 K/mm3 (150-450); RBC Distribution Width CV 14.7 % (11.6-14.6); RBC Distribution Width SD 46.2 fl (35.1-43.9); Red Blood Count 4.38 M/mm3 (4.6-6.2); White Blood Count 13.1 K/mm3 (4.4-11.0)
[2021-08-16 05:50] LABS: Anion Gap 6 (5-15); BUN 6 mg/dL (7-18); Calcium,Total 9.5 mg/dL (8.5-10.1); Chloride 103 mmol/L (98-107); Creatinine, Serum 0.85 mg/dL (0.70-1.30); EST Glomerular Filtration Rate 95 mL/min (>60); Est Glom Filt Rate - Afr Amer 115 mL/min (>60); Estimated Creatinine Clearance 85.88 ml/min; Glucose 239 mg/dL (74-106); Potassium 3.9 mmol/L (3.5-5.1); Sodium Level 135 mmol/L (136-145)
[2021-08-16] MEDS: Insulin Lispro 100 UNIT/ML INSULN.PEN SC ×3 (06:41→21:35)
[2021-08-16] MEDS: Glimepiride 1 MG Tablet PO (08:07)
[2021-08-16] MEDS: METFORMIN HCL 750 MG TAB.ER.24H PO (08:07)
[2021-08-16] MEDS: Ensure Surgery 237 ML LIQUID PO ×3 (08:12→15:17)
[2021-08-16] MEDS: Pantoprazole Sodium 40 MG Tablet PO (10:11)
[2021-08-16] MEDS: DULoxetine Hcl 60 MG Capsule PO (10:11)
[2021-08-16] MEDS: Senna/Docusate Sodium 1 Tablet 2 TABLET PO ×2 (10:12→21:37)
[2021-08-16] MEDS: amLODIPine 10 MG Tablet PO (10:12)
[2021-08-16] MEDS: Lisinopril 20 MG Tablet PO (10:12)
[2021-08-16] MEDS: Famotidine 20 MG Tablet PO ×2 (10:15→21:37)
[2021-08-16 11:26] LABS: Bedside Glucose 234 mg/dL (70-110)
[2021-08-16 12:11] LABS: Bedside Glucose 197 mg/dL (70-110)
--- NOTE | 2021-08-16 12:37 | PCM.PN.ORT ---
Objective Data Objective Data Vital Signs: Vital Signs Temp Pulse Resp BP Pulse Ox 98.7 F 78 17 111/56 L 97 08/16/21 11:46 08/16/21 11:46 08/16/21 11:46 08/16/21 11:46 08/16/21 11:46 Oxygen Flow Rate (L/min) 3 Oxygen Delivery Method Nasal Cannula Weight: 207 lb 10.807 oz Body Mass Index (BMI) 29.7 Intake & Output: Intake and Output for Last 24 Hours 08/14/21 08/15/21 08/16/21 23:59 23:59 23:59 Intake Total 3921.17 / 4921.17 1091 / 1091 Output Total 250 / 1770 2170 / 2170 Balance 3671.17 / 3151.17 -1079 / -1079 Lab / Micro Data Result Diagrams: 08/16/21 05:08 08/16/21 05:08 Labs: Laboratory Results - last 24 hr 08/15/21 16:28: POC Glucose 112 H 08/15/21 23:19: POC Glucose 174 H 08/16/21 05:08: WBC 13.1 H, RBC 4.38 L, Hgb 12.7 L, Hct 37.5 L, MCV 85.6, MCH 29.0, MCHC 33.9, RDW Std Deviation 46.2 H, RDW Coeff of Lila 14.7 H, Plt Count 203, MPV 9.8, Immature Gran % (Auto) 0.500, Neut % (Auto) 81.1 H, Lymph % (Auto) 9.5 L, [place] % (Auto) 7.9, Eos % (Auto) 0.5, Baso % (Auto) 0.5, Absolute Neuts (auto) 10.7 H, Absolute Lymphs (auto) 1.25, Nucleated RBC % 0 08/16/21 05:08: Sodium 135 L, Potassium 3.9, Chloride 103, Carbon Dioxide 26.0, Anion Gap 6, BUN 6 L, Creatinine 0.85, Estim Creat Clear Calc 85.88, Est GFR (MDRD) Af Amer 115, Est GFR (MDRD) Non-Af 95, BUN/Creatinine Ratio 7.0 L, Glucose 239 H, Calcium 9.5 08/16/21 06:25: POC Glucose 234 H 08/16/21 12:05: POC Glucose 197 H Micro: Microbiology 08/09/21 16:35 Nasal Secretion Nasal Screen MRSA/MSSA - Final 08/09/21 16:10 Interface Orders SARS-CoV-2 Antigen (Rapid) - Final Radiography Diagnostic Testing: Radiology Impression Spine X-Ray 08/15/21 08:30 IMPRESSION: The localization clip is seen posterior to the L4-L5 disc space level. Electronically Signed: Donnie Jones MD at 10:59 EDT , Service support , Procedure Criteria Elective Risks - COVID COVID Risk Discussion: Postop day #1 patient is quite asleep as I see him but I did talk to his nurse. He apparently has been sleeping quite a bit and apparently a result of the Ambien that he took near midnight last night. Apparently that was a mistake. Of course nobody could predict that he would react that way to the Ambien nonetheless its been discontinued. Other than that he could conceivably go home today as I heard that he was walking quite well down the [place]. His dressing is dry. we will plan on discharge tomorrow.
--- NOTE | 2021-08-16 12:57 | CHAPLAIN ---
Type of Pastoral Visit _x__ Initial Visit ___ Follow-up Visit ___ On-call Visit ___ General Patient Visit ___ Spiritual Assessment ___ Family Conference ___ Bereavement ___ Rapid Response ___ Code Blue ___ Other (describe below) Pastoral Care Referral From _x__ Patient ___ Family ___ Nurse ___ Physician ___ Director Operations ___ Supervisor Finishing Department ___ Other (describe below) Sacrament/Intervention ___ Active listening ___ Anointing ___ Jainism ___ Bereavement ___ Communion ___ Kaylin exploration ___ ___ Life review ___ Prayer ___ Reconciliation ___ Sacrament of Sick _x__ Supportive presence ___ Wedding ___ Other (describe below) Pastoral Comments patient awoke to his name but could not stay awake during visit; just brief introduction
--- NOTE | 2021-08-16 14:30 | CASEMGMT ---
MIKA SALMON DATA SYSTEMS MANAGER CM to room to meet with patient for initial transition planning/care coordination assessment. MIKA SALMON introduced self and role at [facility]. Pt voices understanding and consents to assessment at this time. Pt sitting up in recliner chair in no distress at this time. and dtr @ bedside, visiting w/pt. Pt has been sleepy/groggy today and impulsive at times. Care providers, pharmacy, and demographics verified/updated and the following information gathered from and dtr. PCP: Rachelle Burnett Specialists: Ko--ortho, Basali-pain mgmt, Kaye--urology in [place] Preferred Pharmacy: [facility] Insurance: [facility], MMO Prescription Benefit: Yes LNOK: , Patience. Dtr, Jeanne Living Arrangements: Lives w/his , Patience, in 2-story home w/2 steps to enter w/no handrails. FFSU. Pt independent w/ADL's prior to surgery. does most home mgmt tasks. Transportation: Pt, DME: States has the following DME: shower chair, cane, walker, hospital bed, functioning glucometer w/supplies They state no need for further DME at this time. HHC/SNF: No hx of either. /dtr state they wish for pt to return home @ discharge. They are aware PT has worked w/pt this AM and that he walked 35 ft in his room and in the hallway. /dtr aware Dr Connell is not discharging pt today as he has been groggy/sleepy today. They voiced concerns re: COVID patients being in the hospital and feel pt would do much better being in his own home and would like to take pt home today, if possible. Dtr states she works on the [place] and she states she would stay w/pt and all night. They state they would like to observe how he is ambulating this afternoon. Colleen RN, made aware and states will walk w/pt while family present. /dtr have deny having other discharge planning needs/questions/concerns at this time. PLAN: Home w/family support and discharge plans in place. Ceci BECKFORD RN, CM
--- NOTE | 2021-08-16 15:23 | NURSING ---
Was asked by Warren BRENNANtire cord weaver to walk pt. Pt tearful, said it was b/c of pain. It took approximately 15 min to sit on edge of bed, and walk around bed, lay down in bed. pt very slow moving and needs a lot of encouragement. spo2 90% while walking.
[2021-08-16 16:25] LABS: Bedside Glucose 184 mg/dL (70-110)
[2021-08-16] MEDS: Metoprolol(XL)Succ 50 MG Tablet PO (21:37)
[2021-08-16] MEDS: 0.9% NaCl Peripheral Flush Adult/Peds IV (21:40)
[2021-08-16 23:35] LABS: Bedside Glucose 229 mg/dL (70-110)
--- NOTE | 2021-08-17 01:23 | NURSING ---
repaged and left voicemail to Dr. Connell regarding pt pulled his hemovac and removed his drsg.
[2021-08-17] MEDS: diazePAM 5 MG Tablet PO (01:49)
[2021-08-17] MEDS: 0.9% NaCl Peripheral Flush Adult/Peds IV (01:59)
[2021-08-17 02:00] VITALS: BP 126/84; PULSE 94; RESP 18; TEMP 36.6; O2SAT 93
[2021-08-17] MEDS: Morphine 4 MG/ML Syringe IV (02:00)
[2021-08-17] MEDS: Levothyroxine 50 MCG Tablet PO (06:45)
[2021-08-17] MEDS: oxyCODONE 5 MG Tablet PO (06:58)
[2021-08-17 07:06] LABS: Bedside Glucose 173 mg/dL (70-110)
[2021-08-17 07:09] VITALS: O2SAT 88
[2021-08-17] MEDS: Glimepiride 1 MG Tablet PO (07:50)
[2021-08-17] MEDS: METFORMIN HCL 750 MG TAB.ER.24H PO (07:51)
[2021-08-17] MEDS: Ensure Surgery 237 ML LIQUID PO (07:51)
[2021-08-17 07:53] VITALS: BP 145/79; PULSE 86; RESP 18; TEMP 36.3; O2SAT 94
[2021-08-17 09:07] VITALS: RESP 18
[2021-08-17 11:35] VITALS: BP 144/80; PULSE 82
[2021-08-17 11:36] LABS: Bedside Glucose 207 mg/dL (70-110)
[2021-08-17] MEDS: DULoxetine Hcl 60 MG Capsule PO (11:41)
[2021-08-17] MEDS: Senna/Docusate Sodium 1 Tablet 2 TABLET PO (11:41)
[2021-08-17] MEDS: Pantoprazole Sodium 40 MG Tablet PO (11:41)
[2021-08-17] MEDS: Lisinopril 20 MG Tablet PO (11:41)
[2021-08-17] MEDS: amLODIPine 10 MG Tablet PO (11:41)
[2021-08-17] MEDS: Famotidine 20 MG Tablet PO (11:41)
[2021-08-17] MEDS: Insulin Lispro 100 UNIT/ML INSULN.PEN SC (11:44)
--- NOTE | 2021-08-17 14:20 | NURSING ---
Assisted patient to bathroom and back to bed with walker. pt tolerated well.
[2021-08-17 14:21] VITALS: BP 136/68; PULSE 89; RESP 18; TEMP 36.8; O2SAT 92
--- NOTE | 2021-08-17 14:26 | CASEMGMT ---
MIKA SALMON in to discuss VIVAR form. MIKA SALMON explained VIVAR form to patient and , both voiced understanding. Patient had sign VIVAR form. Signed VIVAR form filed in chart. Patient provided with copy of signed VIVAR form. Patient had no further questions or concerns.
--- NOTE | 2021-08-17 14:28 | PCM.DC ---
Discharge Instructions Follow Up Care Test Results: Test results from this visit will be discussed in further detail at your follow-up appointment, if applicable. Discharge Plan Admission Admit Date/Time: 08/16/21 13:32 Attending Provider: Stanislav Gupta Consulting Providers: Courtney Gandhi Discharge Orders/Prescriptions Prescriptions: No Action metformin 750 mg tablet extended release 24 hr 750 mg PO DAILY RF: 0 lisinopril 20 mg tablet 20 mg PO DAILY RF: 0 levothyroxine [Synthroid] 50 mcg tablet 50 mcg PO DAILY RF: 0 duloxetine 60 mg capsule,delayed release(DR/EC) 60 mg PO DAILY RF: 0 loratadine [Claritin] 10 mg tablet 10 mg PO QHS RF: 0 aspirin 81 mg tablet,chewable 81 mg PO DAILY RF: 0 amlodipine 10 MG tablet 10 mg PO DAILY RF: 0 diclofenac sodium 100 GM gel 4 g TP BID PRN PRN (Reason: Osteoarthritis) RF: 0 pantoprazole 40 mg tablet,delayed release (DR/EC) 40 mg PO DAILY RF: 0 metoprolol succinate 50 mg tablet extended release 24 hr 50 mg PO QHS RF: 0 glimepiride 1 mg tablet 1 mg PO DAILY RF: 0 tadalafil 5 mg tablet 5 mg PO DAILY RF: 0 Referrals / Follow Up: YESICA ORTIZ [Other] Disposition Disposition (needs filled in before D/C Order can be placed): Home, Self Care
--- NOTE | 2021-08-17 14:31 | DS.PCM_ITS ---
Providers Date of Admission: 08/16/21 Primary Care Physician: YESICA ORTIZ Consultations 08/15/21 11:42 Consult: Hospitalist Routine Consulting Provider: Courtney Gandhi Reason for Consult: Medical Management EMERGENT Consult: No MD Notified: Yes Date Notified: 08/15/21 Time Notified: 13:55 Method of Notification: text via spok Reason For Visit: LUMBAR LAMINECTOMY L4-L5 RIGHT Diagnosis Discharge Diagnosis (1) Herniated nucleus pulposus, L4-5 right: Status: Acute Code(s): M51.26 - Other intervertebral disc displacement, lumbar region Medications at Discharge Home Medications lisinopril 20 mg tablet 20 mg PO DAILY 12/29/17 metformin 750 mg tablet,extended release 24 hr 750 mg PO DAILY 12/29/17 duloxetine 60 mg capsule,delayed release 60 mg PO DAILY cap 01/05/18 levothyroxine 50 mcg tablet 50 mcg PO DAILY tab 01/05/18 loratadine 10 mg tablet 10 mg PO QHS 01/05/18 aspirin 81 mg chewable tablet 81 mg PO DAILY 05/31/20 amlodipine 10 mg PO DAILY 10/29/20 diclofenac sodium 4 g TP BID PRN PRN 10/29/20 glimepiride 1 mg tablet 1 mg PO DAILY 08/02/21 metoprolol succinate 50 mg tablet,extended release 24 hr 50 mg PO QHS 08/02/21 pantoprazole 40 mg tablet,delayed release 40 mg PO DAILY 08/02/21 tadalafil 5 mg PO DAILY 08/09/21 Hospital Course Summary of Care Provided Hospital Course: This patient was admitted on August 15, 2021. He has been discharged on August 17, 2021. Date of surgery underwent lumbar laminectomy L4-5 on the right side. He tolerated the procedure well. Discharge his dressing is dry neuro is intact and he states that all his leg pain is gone. In fact his back does not even hurt very much. He and his are given post la minae protocol regarding his activities over the next couple of weeks. He was seen again in the office 13 days after surgery. Thursday the dressing will be removed and on Thursday he will be able to shower. He is not to drive until I see him again in the office. This is the end of discharge summary on Rod Hernández. This is Dr. Connell dictating. Weight / BMI Weight Weight: 207 lb 10.807 oz Body Mass Index (BMI) 29.7 ABG / Lab / Microbiology Data Result Diagrams: 08/16/21 05:08 08/16/21 05:08 Laboratory: Laboratory Results - last 24 hr 08/16/21 16:14: POC Glucose 184 H 08/16/21 21:35: POC Glucose 229 H 08/17/21 06:47: POC Glucose 173 H 08/17/21 11:32: POC Glucose 207 H Microbiology: Microbiology 08/09/21 16:35 Nasal Secretion Nasal Screen MRSA/MSSA - Final 08/09/21 16:10 Interface Orders SARS-CoV-2 Antigen (Rapid) - Final Meaningful Use Info Meaningful Use Diagnoses (Choose all that apply): None applicable Discharge Plan Admission Admit Date/Time: 08/16/21 13:32 Attending Provider: Stanislav Gupta Consulting Providers: Courtney Gandhi Discharge Orders/Prescriptions Prescriptions: No Action metformin 750 mg tablet extended release 24 hr 750 mg PO DAILY RF: 0 lisinopril 20 mg tablet 20 mg PO DAILY RF: 0 levothyroxine [Synthroid] 50 mcg tablet 50 mcg PO DAILY RF: 0 duloxetine 60 mg capsule,delayed release(DR/EC) 60 mg PO DAILY RF: 0 loratadine [Claritin] 10 mg tablet 10 mg PO QHS RF: 0 aspirin 81 mg tablet,chewable 81 mg PO DAILY RF: 0 amlodipine 10 MG tablet 10 mg PO DAILY RF: 0 diclofenac sodium 100 GM gel 4 g TP BID PRN PRN (Reason: Osteoarthritis) RF: 0 pantoprazole 40 mg tablet,delayed release (DR/EC) 40 mg PO DAILY RF: 0 metoprolol succinate 50 mg tablet extended release 24 hr 50 mg PO QHS RF: 0 glimepiride 1 mg tablet 1 mg PO DAILY RF: 0 tadalafil 5 mg tablet 5 mg PO DAILY RF: 0 Referrals / Follow Up: YESICA ORTIZ [Other] Disposition Disposition (needs filled in before D/C Order can be placed): Home, Self Care
--- NOTE | 2021-08-17 14:58 | NURSING ---
Nurse was in room when Dr. Connell gave verbal orders to pt and . The instructions were not written in the discharge instructions, however the pt's wrote them down.
--- NOTE | 2021-08-17 15:03 | NURSING ---
Dr. Connell did not address if home meds should be continued or not. Called Dr. Connell and he said pt to continue all home meds.
== END 2021-08-17 15:05 | disposition home or self-care (01) ==
LOC: SDC 13:52 → MS3 13:52
PROVIDERS: Anesthesiology; Nurse Practitioner Family; Orthopaedic Surgery
PROC: (CPT 63030; principal; 2021-08-15 08:00)
DX: M51.16 Intervertebral disc disorders with radiculopathy, lumbar region (principal); K21.9 Gastro-esophageal reflux disease without esophagitis; E11.9 Type 2 diabetes mellitus without complications; E78.5 Hyperlipidemia, unspecified; I10 Essential (primary) hypertension; E03.9 Hypothyroidism, unspecified; Z79.899 Other long term (current) drug therapy; Z79.84 Long term (current) use of oral hypoglycemic drugs; Z79.82 Long term (current) use of aspirin; Z79.890 Hormone replacement therapy; G47.30 Sleep apnea, unspecified; Z01.818 Encounter for other preprocedural examination; Z20.828 Contact with and (suspected) exposure to other viral communicable diseases
CPT/HCPCS: 00670; 63030; 36415; 72020; 80048; 82962; 83036; 83735; 84443; 85025; 86703; 86706; 86708; 86803; 87081; 87426; 88304; 93005; 96361; 96365; 96366; 96375; 96376; 97162; 97530; 99218; C9803; J7120; A4216; G0378; J2405

== ENCOUNTER → 2021-11-18 17:04 | Outpatient (CLI) | payer MEDICARE, OTHER, SELFPAY ==
--- NOTE | 2021-11-18 17:05 | MRI_ITS ---
STUDY: MRI LUMBAR SPINE WITH AND WITHOUT CONTRAST REASON FOR EXAM: Male, 66 years old. pain TECHNIQUE: Standardized fat and water weighted pulse sequences were obtained in the sagittal and axial planes. IV dotarem 18ml was administered for the contrast portion of the examination. COMPARISON: 07/24/2021 FINDINGS: Normal lumbar lordosis. There is no substantial scoliosis. Normal conus medullaris that terminates at the T12. L1-2: There is minimal disc space narrowing and endplate spondylosis. There is no significant disc herniation, central canal or foraminal stenosis. L2-3: There is minimal disc space narrowing and endplate spondylosis. There is no significant disc herniation, central canal or foraminal stenosis. Mild facet arthropathy. L3-4: There is minimal disc space narrowing and endplate spondylosis. There is no significant disc herniation, central canal or foraminal stenosis. Mild facet thrombus. L4-5: There is mild disc space narrowing and endplates spondylosis. Again noted is a Moderate disc bulge with shallow central protrusion and facet arthropathy with mild central canal stenosis. There has been interval right hemilaminectomy with resolution of the right paracentral extrusion and improved right lateral recess. Mild right and mild left foraminal stenosis. L5-S1: There is minimal disc space narrowing and endplate spondylosis. There is no significant disc herniation, central canal or foraminal stenosis. Severe facet arthropathy. Findings are stable since prior examination. MRI/Spine Lumbar W/WO Contrast IMPRESSION: L4/L5: Right hemilaminectomy with improved right lateral recess patency. Electronically Signed: Cierra Huerta MD at 16:00 EST Tel , Service support ,
[2021-11-18 17:36] LABS: CREATININE FINGERSTICK 0.8 mg/dL (0.70-1.30); EGFR FINGERSTICK > 60.0000 mL/min (>60)
== END ==
PROVIDERS: Visit Provider Orthopaedic Surgery
DX: M54.17 Radiculopathy, lumbosacral region (principal)
CPT/HCPCS: 72158; A9575

== ENCOUNTER 2022-02-13 12:40 | Outpatient (CLI) | payer MEDICARE, OTHER, SELFPAY ==
--- NOTE | 2022-01-20 16:39 | EKG12_ITS ---
Test Reason : PRE-OP Blood Pressure : / mmHG Vent. Rate : 066 BPM Atrial Rate : 066 BPM P-R Int : 204 ms QRS Dur : 084 ms QT Int : 372 ms P-R-T Axes : 044 039 028 degrees QTc Int : 389 ms Normal sinus rhythm Normal ECG Confirmed by BIENVENIDO PERAZA, CHUY ([id number]), technical writer and editor LAURY MONSIVAIS ([id number]) on 01/21/2022 6:43:51 AM Referred By: Kwan Connell Confirmed By:CHUY FARIA MD
[2022-01-20 17:28] LABS: Absolute Lymphocyte Count 1.57 X10^3/uL (0.83-4.51); Absolute Neutrophil Count 4.7 X10^3/uL (2.0-7.7); Basophil# 0.06 X10^3/uL; Basophil% 0.8 % (0-1); Eosinophils% 2.8 % (0-5); Hematocrit 44.9 % (40-54); Hemoglobin 15.1 g/dL (13.0-16.5); Lymphocyte # 1.57 X10^3/ul (0.83-4.51); Lymphocyte % 21.9 % (19-41); Mean Corp Hgb Conc 33.6 g/dL (32-36); Mean Corpuscular Hgb 27.5 pg (27.0-32.0); Mean Corpuscular Volume 81.6 fL (80-94); Mean Platelet Vol. 10.1 fl (6.2-12.0); Monocyte# 0.56 X10^3/uL; Monocyte% 7.8 % (0-10); NRBC Flagged by Analyzer 0 % (0-5); Neutrophil # 4.73 X10^3/uL (2.7-7.7); Neutrophil % 66.1 % (47-70); Platelet Count 248 K/mm3 (150-450); RBC Distribution Width CV 13.5 % (11.6-14.6); RBC Distribution Width SD 39.8 fl (35.1-43.9); White Blood Count 7.2 K/mm3 (4.4-11.0)
[2022-01-20 18:08] LABS: Hemoglobin A1c 9.3 % (3.8-5.6)
[2022-01-20 18:15] LABS: Anion Gap 10 (5-15); BUN 10 mg/dL (7-18); BUN/Creat Ratio 10.3 RATIO (10-20); Chloride 104 mmol/L (98-107); Creatinine, Serum 0.97 mg/dL (0.70-1.30); EST Glomerular Filtration Rate 81 mL/min (>60); Est Glom Filt Rate - Afr Amer 99 mL/min (>60); Glucose 341 mg/dL (74-106); Potassium 4.1 mmol/L (3.5-5.1); Sodium Level 135 mmol/L (136-145)
[2022-01-20 18:31] LABS: Magnesium 1.8 mg/dL (1.6-2.6); Thyroid Stim Hormone (TSH) 1.91 uIU/mL (0.358-3.74)
[2022-01-21 09:14] LABS: HIV - WCH Non-Reactive (Nonreactive); Hepatitis B Surface Antibody Non-Reactive; Hepatitis C Antibody Non-Reactive (Nonreactive)
[2022-01-22 10:13] LABS: Hepatitis A AB, Total Negative (Negative)
== END 2022-02-13 23:59 | disposition home or self-care (01) ==
LOC: SDC 12:40
PROVIDERS: Anesthesiology; Referring Provider Orthopaedic Surgery; Visit Provider Orthopaedic Surgery
DX: Z01.812 Encounter for preprocedural laboratory examination (principal); M51.26 Other intervertebral disc displacement, lumbar region
CPT/HCPCS: 36415; 80048; 83036; 83735; 84403; 84443; 85025; 86703; 86706; 86708; 86803; 87081; 93005

== ENCOUNTER 2022-05-13 06:09 | Inpatient (IN) | payer MEDICARE, OTHER, SELFPAY ==
[2022-05-05 16:28] LABS: Hematocrit 44.1 % (40-54); Hemoglobin 14.2 g/dL (13.0-16.5); Mean Corp Hgb Conc 32.2 g/dL (32-36); Mean Corpuscular Hgb 25.4 pg (27.0-32.0); Mean Corpuscular Volume 78.9 fL (80-94); Mean Platelet Vol. 10.5 fl (6.2-12.0); Platelet Count 190 K/mm3 (150-450); RBC Distribution Width CV 15.1 % (11.6-14.6); Red Blood Count 5.59 M/mm3 (4.6-6.2)
[2022-05-05 17:10] LABS: Magnesium 1.9 mg/dL (1.6-2.6); Thyroid Stim Hormone (TSH) 4.57 uIU/mL (0.358-3.74)
[2022-05-05 18:38] LABS: Hemoglobin A1c 6.7 % (3.8-5.6)
[2022-05-05 20:12] LABS: Anion Gap 7 (5-15); BUN 11 mg/dL (7-18); BUN/Creat Ratio 11.2 RATIO (10-20); Calcium,Total 10.4 mg/dL (8.5-10.1); Chloride 103 mmol/L (98-107); Creatinine, Serum 0.98 mg/dL (0.70-1.30); EST Glomerular Filtration Rate 80 mL/min (>60); Est Glom Filt Rate - Afr Amer 97 mL/min (>60); Glucose 104 mg/dL (74-106); Potassium 4.2 mmol/L (3.5-5.1); Sodium Level 136 mmol/L (136-145)
[2022-05-06 09:33] LABS: HIV - WCH Non-Reactive (Nonreactive); Hepatitis B Surface Antibody Non-Reactive; Hepatitis C Antibody Non-Reactive (Nonreactive)
[2022-05-07 20:58] LABS: Hepatitis A AB, Total Negative (Negative)
--- NOTE | 2022-05-12 15:38 | PCM.HP.BLA ---
History and Physical Date of Admission: 05/13/22 [facility] [id number] [phone] OFFICE VISITDate of Service: Visit Reasons: lumbar spine Chief Complaint: Lumbar Spine Allergies morphine Adverse Reaction (Verified 04/29/22 14:53) Other Medications lisinopril 20 mg tablet 40 mg PO QHS 12/29/17 [History Confirmed 05/05/22] duloxetine 60 mg capsule,delayed release 60 mg PO DAILY cap 01/05/18 [History Confirmed 05/05/22] levothyroxine 50 mcg tablet 50 mcg PO DAILY tab 01/05/18 [History Confirmed 05/05/22] loratadine 10 mg tablet 10 mg PO QHS 01/05/18 [History Confirmed 05/05/22] aspirin 81 mg chewable tablet 81 mg PO DAILY 05/31/20 [History Confirmed 05/05/22] amlodipine 10 mg PO DAILY 10/29/20 [History Confirmed 05/05/22] diclofenac sodium 4 g TP BID PRN PRN 10/29/20 [History Confirmed 05/05/22] metoprolol succinate 50 mg tablet,extended release 24 hr 50 mg PO QHS 08/02/21 [History Confirmed 05/05/22] pantoprazole 40 mg tablet,delayed release 40 mg PO DAILY 08/02/21 [History Confirmed 05/05/22] tadalafil 5 mg PO DAILY 08/09/21 [History Confirmed 05/05/22] glimepiride 2 mg tablet 2 mg PO BID tab 09/30/21 [History Confirmed 05/05/22] insulin aspart U-100 [Novolog Flexpen U-100 Insulin] 4 unit SUBCUT TID 04/29/22 [History Confirmed 05/05/22] insulin glargine [Basaglar KwikPen U-100 Insulin] 20 unit SUBCUT QPM 04/29/22 [History Confirmed 05/05/22] [facility] Medical History (Updated 05/05/22 @ 13:[address] Kwan Connell, DO) Acid reflux Ambulates with cane Back pain Bladder disease Cardiology follow-up encounter Cervical disc disorder at C6-C7 level with radiculopathy Cervicalgia Chewing tobacco nicotine dependence Chronic cough COVID Diabetes Fatty liver Gastric reflux Gout History of echocardiogram History of edema History of steroid therapy History of steroid therapy History of stress test History of ulceration Hyperlipidemia Hypertension Hypothyroidism Injury of head and neck Insulin dependent diabetes mellitus Loss of consciousness Loss of hearing Neuropathy Nicotine dependence Other cervical disc degeneration, unspecified cervical region Pneumonia Radiculopathy of cervical region Radiculopathy of cervicothoracic region Shortness of breath on exertion Sleep apnea Syncope TIA (transient ischemic attack) Uses wheelchair Walker as ambulation aid Wears dentures Wears glasses Surgical History (Updated 04/29/22 @ 14:44 by Yanely Simental) H/O removal of testicle History of bilateral cataract extraction History of colonoscopy History of laminectomy S/P appendectomy S/P hernia repair s/p right shoulder rotator cuff Family History Grandfather Diabetes Myocardial infarction Grandmother Cancer Father Lung cancer Mother Diabetes Social History Smoking Status: Current every day smoker tobacco type: smokeless tobacco HPI lumbar spine Details: Parts of this documentation were recorded by a scribe, this documentation accurately reflects the service provided and the decisions made by me, Dr. Kwan Connell, DO 05/05/22 1306. JONATHAN ADAM is a 66 year old M here today for F/U on lumbar spine after having lumbar 360 fusion canceled D/T his elevated A1C in 12/2021. He has since had his A1C lowered and has been placed back on the surgery schedule for 05/13/22. He is here today for a preop visit. He still has 3 ensure drink at home and he was given additional pre-surgical soap today. He states that he continues to have the low back pain and pain into his left leg to the foot which has became worse since his last visit. He previously had Lumbar laminectomy discectomy L4-5 on the right in 07/2021 for right leg pain which subsided after surgery and started having new pains then the 360 fusion was planed based on MRI from 10/2021. Is here for his preop prior to his surgery this scheduled 8 days from now. We will do a 360 degree fusion at L4-5. I will open the left side that thus a left-sided laminectomy to get rid of his left leg pain. I answered all their questions. We spoke of possible risks and complications associated with this surgery including possibility of , paralysis, infection, blood clot in the legs, blood clot in the lungs, uncontrollable bleeding, retrograde ejaculation, damage to viscus structures, failure of fusion, failure of fixation, failure to relieve the left leg pain. He understood all the possible risks and complications. He voluntarily signed the operative permit. Coding Level of Care Code Off vis,est,level 2 Diagnoses Herniated nucleus pulposus, L4-5 left M51.26
[2022-05-13] VITALS (12 sets, daily range): BP systolic 114–155; BP diastolic 47–69; PULSE 58–75; RESP 16–19; TEMP 36.8–37.1; O2SAT 93–98; BMI 27.6
[2022-05-13] MEDS: Acetaminophen 500 MG Tablet 1000 MG PO ×3 (07:13→21:05)
[2022-05-13] MEDS: Lactated Ringers 1,000 ML 15 ML IV ×2 (07:13→21:07)
--- NOTE | 2022-05-13 07:30 | DISC_PTH ---
PATIENT: JONATHAN ADAM LOC: MS3 U#:[id number] AGE/SX: 67/M ROOM: [facility] RE05/13/[address]: Dr. Kwan Connell DO : 1955 BED: 1 DIS: 05/15/2022 SPEC #: [id number] RECD: 05/13/22 11:43 STATUS: JENNIFER EWELINA #: [id number] JENNA: 05/13/22 07:[address]: Kwan Connell DEPT: SURGICAL PATHOLOGY RECD BY: Krystle Solares Tissues: Intervertebral disc, NOS Procedures: Surgery Specimen Level III HEADER OPERATION: ERAS, 360 lumbar fusion L4-5 with laminectomy L4-5 PRE-OP DIAGNOSIS: Herniated nucleus pulposus L4-5 left TISSUE SUBMITTED: Disc lumbar 4-5 MICROSCOPIC DIAGNOSIS Disc L4-5: Fragments of fibrocartilaginous tissue with focal reactive and degenerative changes and bone. NIA:matias 05/14/2022 MICROSCOPIC DESCRIPTION Slides are reviewed. GROSS DESCRIPTION Received in fixative is one container labeled with the patient's name and designated disc L4-5. The specimen consists of multiple irregular fragments of roper-pink, indurated tissue that in aggregate measure 8 x 8 x 3 cm. The largest piece measures 4 cm in greatest dimension. Copy Clerk tissue is submitted in two cassettes. / SJ:matias 05/13/2022 TC:5 CPT: 28758
[2022-05-13] MEDS: Cefazolin 2 GM in 0.9% Normal Saline 100 ML IV (08:04)
--- NOTE | 2022-05-13 09:20 | RAD_ITS ---
STUDY: X-RAY - LUMBAR SPINE REASON FOR EXAM: Male, 67 years old. FUSION WITH LAMINECTOMY L4-5,LEFT TECHNIQUE: 1 view(s) of the lumbar spine were obtained. COMPARISON: None FINDINGS: The localization instrument is seen along the anterior aspect of the L4-L5 disc space level. RAD/Spine 1 View Any Level IMPRESSION: The localization instrument is seen along the anterior aspect of the L4-L5 disc space level. Electronically Signed: Donnie Jones MD at 10:04 EDT ,
[2022-05-13 09:21] LABS: Base Excess -1 mmol/L (-2 to +2); Bicarbonate 22.6 mmol/L (22-26); Blood Gas Specimen Type ART; FI02 54; PO2 215 mmHG (75-100); RR 12; SO2 100 % (95-99); Total Carbon Dioxide 24 mmol/L; Vt 575; pCO2 30.6 mmHg (35-45); pH 7.48 (7.35-7.45)
--- NOTE | 2022-05-13 10:20 | RAD_ITS ---
STUDY: X-RAY - LUMBAR SPINE REASON FOR EXAM: Male, 67 years old. FUSION W/ LAMINECTOMY L4-5 -- IMAGE 2 TECHNIQUE: 1 view(s) of the lumbar spine were obtained. COMPARISON: Comparison is made with prior study done earlier today. FINDINGS: The patient is status post anterior fusion at the L4-L5 level with prosthetic disc placement. RAD/Spine 1 View Any Level IMPRESSION: Anterior fusion at the L4-L5 level with prosthetic disc placement. Electronically Signed: Donnie Jones MD at 12:08 EDT ,
[2022-05-13 10:26] LABS: Bedside Glucose 97 mg/dL (74-106)
--- NOTE | 2022-05-13 10:45 | OP.PCM_ITS ---
Problems Associated Problem List Diagnoses (1) Herniated nucleus pulposus, L4-5 left: Report of Operation Date of Procedure: 05/13/22 Pre-Operative Diagnosis: Degenerative disc disease Post-Operative Diagnosis: The same Surgery/Procedure Performed:: 1. Anterior lumbar interbody fusion L4-L5 with 16mm cage. Anterior plate with 2 screws into L4 and 2 screws into L5. Type of Anesthesia: General Description of Procedure: Surgeon: Dr. Connell co-surgeon: Dr. Buzz Ferraro Auto Service Representative Operation: Patient brought to the operating room. Underwent appropriate timeout consent. Underwent general anesthesia. All appropriate monitoring lines were placed. Appropriate antibiotics were given. Was prepped and draped in a sterile fashion. We did a left lower quadrant incision 4 fingerbreadths above the pubic symphysis. We dissected down onto the anterior fascia. We then incised the fascia to the midline and lateral past the rectus to the obliques. We then freed up the anterior fascia superior and inferior. We then got lateral to the rectus and into the retroperitoneal plane. We then dissected down there and put in the Omni retractor. We were able to pull the left iliac artery medially there were lumbar branch and several venous branches that were all divided between clips and ties. Once we freed this up we are able to see enough of the L4-L5 disc space. We confirmed under x-ray that we are in the correct space. Patient then underwent the discectomy. Dilated up with trials. Approach then through this space. Then put in a 16mm 8 degree cage with BMA. Anterior plate was placed with 2 35 mm screws in L4 and 2 into L5. Completion x-ray showed this in great position. Film was placed over this is retractors were released. There was good hemostasis. Then closed the fascia with running strata fix. Vicryl in layers and then Monocryl and Dermabond for the skin. I was present for the entire anterior component. Patient will be flipped over all posterior be done and dictated separately
[2022-05-13] MEDS: Heparin 10,000 UNITS/10 ML Vial 10000 UNITS (10:49)
--- NOTE | 2022-05-13 10:51 | OP.PCM_ITS ---
Report of Operation Date of Procedure: 05/13/22 Description of Surgical Findings:: Preop diagnosis: Disc herniation L4-5 with severe left L5 radiculopathy Postop diagnosis: The same Procedures: #1 anterior lumbar interbody fusion L4-5 CPT code 43710 #2 application of anterior spinal plate CPT code 05564/59 #3 insertion of interbody cage CPT code 43947 Co-surgeon's: Dr. Connell and Dr. Ferraro administrative sales assistant: Dr. Ryan Pittman Second Radiophone Operator: Anjana GOINS Anesthesia: General endotracheal administered by [facility] EBL: Less than 100 cc Drains: None Complications: None Procedure: Patient was taken to the OR where he was placed in the supine position on the operating table he was then placed under general endotracheal anesthesia. A Rowan catheter was inserted. Neuro monitoring placed their leads on the patient. The abdomen was prepped and draped in standard fashion. The surgical approach is then described in Dr. Ferraro's operative summary. Once Dr. Ferraro and Dr. Pittman gave me the anterior exposure and confirmation that it was indeed L4-5 I then used a long 10 blade to cut the anterior annulus. I then used pituitary rongeurs to remove nucleus from within the disc space all the way back to the posterior annulus. I then used both ring curettes and bowl curettes to remove remaining cartilage and remain and remove all the cartilage off both endplates. I used a bushra bur to bur the space to have flat surfaces to allow for a cage. I remove the anterior lips with double-action rongeurs. I elevated the anterior longitudinal ligament and periosteum above and below the space for just a little bit to allow for the plate. I then used a trial and ended up using a 16mm high large 25 x 40 mm cage. I then used a 16mm broach to broach the space to give me good bleeding endplate. We then filled the inside of the cage with demineralized bone matrix that was processed to be in the form of sponges. Note that earlier we obtained 60 cc of BMA from the left iliac crest. This was spun down by the pharmacy order entry technician concentrated in the cell so that we had concentrated stem cells that were concentrated 8-10 times. This wound was given back to us. We then soaked the demineralized bone matrix in the patient's own concentrated stem cells. I then tamped it into place and countersunk the cage approximately 3 mm. We then used a 27 mm plate centered at an placed the first of 4 screws to indicis L4 and 2 into L5 first we used an awl to punch the holes and then entered with the 35mm long self-tapping screws at all 4 corners. An amniotic membrane was placed over the cage to prevent adhesions to the vessels. The closure is then described in Dr. Ferraro's operative summary. This is the end of operative summary for the anterior portion for Rod Hernández. This is Dr. Connell dictating.
[2022-05-13 11:41] LABS: Bedside Glucose 110 mg/dL (74-106)
--- NOTE | 2022-05-13 12:05 | RAD_ITS ---
STUDY: X-RAY - LUMBAR SPINE REASON FOR EXAM: Male, 67 years old. ERAS 360 LUMBAR FUSION TECHNIQUE: 1 view(s) of the lumbar spine were obtained. COMPARISON: None FINDINGS: The localization instrument is seen along the posterior aspect of the L4-L5 disc space level. RAD/Spine 1 View Any Level IMPRESSION: The localization instrument is seen along the posterior aspect of the L4-L5 disc space level. Electronically Signed: Donnie Jones MD at 12:30 EDT ,
[2022-05-13] MEDS: THROMBIN (RECOMBINANT) 20,000 UNIT VIAL 20000 UNIT TOPICAL (12:58)
--- NOTE | 2022-05-13 14:19 | PCM.OPRPT ---
Report of Operation Date of Procedure: 05/13/22 Description of Surgical Findings:: Preoperative diagnosis: Herniated disc L4-5 Postoperative diagnosis: The same Procedures: #1 posterior fusion L4-5 CPT code 13246 #2 lumbar laminectomy L4-5 on left CPT code 44596 #3 nonsegmental fixation L4-5 CPT code 17352 Surgeon: Dr. Connell academic affairs assistant: Anjana GOINS Anesthesia: General endotracheal administered by [facility] Estimated blood loss: Less than 100 cc Drains: Medium Hemovac Complications: None Procedure: Once the anterior surgery was completely done and the incision closed we turned the patient over onto the prone position on the Messi frame. After proper positioning with care to protect his bony prominences his genitalia the axillary nerve on both sides the ulnar nerves on both sides the facial features and cervical spine the back was prepped and draped standard fashion. I then made a longitudinal incision over the old incision at length and that each direction about half an inch. Subcutaneous tissues were incised the length of the skin incision I opened the lumbar fascia to the left of the spinous processes and elevated the paravertebral muscles off the lamina for the top of the lamina of L5. An intraoperative x-ray was taken with a marker in place to assure that we were indeed at that level which we were. I think continue elevating peritoneal muscles completely off the lamina out over the facet of 4 5. A Argelia retractor was then put in place. I then cauterized all soft tissue off of the lamina of L4 and I even identify the pars interarticularis on the left side. I released the ligamentum flavum off the underside of the lamina of L4. Laminectomy was carried out with both double-action rongeurs and pituitary rongeurs all the way out to the lateral recesses that were open. I release ligamentum flavum off the top of the lamina of L5 and the underside of the L4 lamina. The laminectomy was carried out with 45 degree Kerrison rongeurs. I then retracted the L5 nerve root to cauterize some vessels. Noted most of the protrusion was taken out from the anterior approach. There were a cyst coming out of the 4 5 facet and that cyst was removed this may have been part of the reason for his pain. Also large epidural vessels were cauterized. The L5 nerve root was completely free of any pressure along its border and out the foramen. Then packed it with thrombin-soaked Gelfoam and open to the other side elevated paravertebral muscles off the lamina and spinous process of L4 for the old laminotomy was care was taken of course not to violate this. We also identified the top of the L5 lamina likewise. The super slide retractors were then put in place. I then used a bur to bur the lamina of 4 and 5 on the right side. The intervertebral spacer was prepared and the interspinous ligament was removed we were able to distract to further open the foramina by doing this. In addition the bone was put in place to further promote fusion. Internal fixation device was then applied and the locking mechanisms were activated. Note that we placed amniotic membrane directly over the laminotomy site to prevent adhesions. Gelfoam was placed over the top of that. We then began closure. The lumbar fascia was approximated using [id number] suture with #1 Vicryl followed by closure of subcutaneous tissues with 2-0 Vicryl in interrupted fashion. Note that we did leave a Hemovac drain in place. Approximated the skin using skin clips. The patient then received the dressings was then recovered in the OR moved to his hospital bed and taken to recovery in satisfactory condition there is operative summary on Rod Hernández. This is Dr. Connell dictating.
[2022-05-13 14:47] LABS: Bedside Glucose 158 mg/dL (74-106)
[2022-05-13 14:47] LABS: Bedside Glucose 162 mg/dL (74-106)
--- NOTE | 2022-05-13 16:49 | PN.HOSP_ITS ---
Subjective Subjective Patient is a 67-year-old male with a past medical history as outlined was admitted to the service of spine surgery for lumbar spine fusion. He previously had lumbar laminectomy and discectomy on L4-L5 on the right in July 2021 for right leg pain and subsequently the pain improved however pain recurred again and so he was planned to have a 360 fusion. Patient had 360 lumbar fusion on 05/13/2022. Hospitalist service was consulted for medical management. Patient was seen and examined after surgery. He had posterior L4-L5 fusion and lumbar laminectomy and the left at L4-L5 and nonsegmental fixation at L4-L5. He had no active complaints and pain was well controlled. He denied any fever, chills, nausea vomiting or diarrhea. Review of systems otherwise negative. Objective Data Objective Data Vital Signs: Vital Signs Temp Pulse Resp BP Pulse Ox 98.8 F 75 16 114/47 L 95 05/13/22 16:43 05/13/22 16:43 05/13/22 16:43 05/13/22 16:43 05/13/22 16:43 Oxygen Flow Rate (L/min) 3 Oxygen Delivery Method Nasal Cannula Weight: 193 lb Body Mass Index (BMI) 27.6 Intake & Output: Intake and Output for Last 24 Hours 05/11/22 05/12/22 05/13/22 23:59 23:59 23:59 Intake Total 4012 / 4012 Output Total 250 / 250 Balance 3762 / 3762 Lab / Micro Data Result Diagrams: 05/05/22 15:56 05/05/22 15:56 Labs: Laboratory Results - last 24 hr 05/13/22 06:48: POC Glucose 97 05/13/22 10:34: POC Glucose 110 H 05/13/22 13:47: POC Glucose 162 H 05/13/22 14:43: POC Glucose 158 H Micro: Microbiology 05/05/22 15:56 Swab (Method) Nasal Screen MRSA/MSSA - Final ABG Data ABG results: ABG 05/13/22 09:15 Specimen Type ART pH 7.48 H Bicarbonate Actual 22.6 Total CO2 24 Base Excess -1 O2 Saturation 100 H O2 % 54 ABG pCO2 30.6 L ABG pO2 215 H Respiration Rate 12 Tidal Volume 575 Clinical Comments pt in OR Radiography Diagnostic Testing: Radiology Impression Spine X-Ray 05/13/22 09:20 IMPRESSION: The localization instrument is seen along the anterior aspect of the L4-L5 disc space level. Electronically Signed: Donnie Jones MD at 10:04 EDT , Spine X-Ray 05/13/22 10:20 IMPRESSION: Anterior fusion at the L4-L5 level with prosthetic disc placement. Electronically Signed: Donnie Jones MD at 12:08 EDT , Spine X-Ray 05/13/22 12:05 IMPRESSION: The localization instrument is seen along the posterior aspect of the L4-L5 disc space level. Electronically Signed: Donnie Jones MD at 12:30 EDT , Physical Exam Const alert, oriented x3 and no apparent distress Exam Limitations: no limitations HEENT head/scalp atraumatic and moist oral mucous membranes Head and Scalp: normocephalic Eyes PERRL, EOMs intact bilaterally and conjunctivae normal Neck no lymphadenopathy, supple and no JVD Resp normal respiratory effort, no retractions, no use of accessory muscles and clear to auscultation bilaterally Cardio regular rate, regular rhythm and S1 normal heart sound GI normal to inspection, nondistended, normoactive bowel sounds, soft to palpation and non-tender Extremity normal to inspection, full ROM and no clubbing, cyanosis or edema Peripheral Pulses: Yes pulses 2+ throughout Skin no rashes or lesions noted Neuro oriented x3 Sensorium / Orientation: awake and alert Psych affect normal Assessment & Plan Assessment/Plan (1) Herniated nucleus pulposus, L4-5 left: (2) Diabetes: (3) Hypertension: (4) High cholesterol: PLAN: #Lumbar spine stenosis * s/p lumbar spinal fusion * today is POD 0. * pain management as per primary team spine surgery * PT/OT consult. * Fall precautions * incentive spirometry * #Type 2 diabetes mellitus * On glimepiride and Lantus 20 units nightly. Insulin sliding scale. Checks ACH S. * #Hypothyroidism: On Synthroid #Hypertension: On amlodipine, lisinopril and metoprolol #GED: on PPI DVT prophylaxis: SCDs; as per primary team Thank you for the courtesy of the consult. We will continue to follow with you. Charges/Coding Visit Charges Inpatient E&M: 01510 Subs Hosp L2
[2022-05-13 17:05] LABS: Bedside Glucose 180 mg/dL (74-106)
[2022-05-13] MEDS: HYDROmorphone 1 MG/ML Syringe IV ×2 (17:11→22:53)
[2022-05-13] MEDS: Glimepiride 2 MG Tablet PO (18:32)
[2022-05-13] MEDS: Cefazolin 1 GM/50 ML BAG IV (18:32)
[2022-05-13] MEDS: DULoxetine Hcl 60 MG Capsule PO (18:32)
[2022-05-13] MEDS: Ensure Surgery 237 ML LIQUID PO (18:37)
[2022-05-13] MEDS: oxyCODONE 5 MG Tablet PO (19:04)
[2022-05-13] MEDS: Insulin Glargine-YFGN 100 UNIT/ML Pen 20 UNIT SC (21:05)
[2022-05-13] MEDS: Metoprolol(XL)Succ 50 MG Tablet PO (21:05)
[2022-05-13] MEDS: Lisinopril 40 MG Tablet PO (21:05)
[2022-05-13 21:16] LABS: Bedside Glucose 189 mg/dL (74-106)
[2022-05-13] MEDS: 0.9% Saline Lock 10 ML Syringe IV (22:54)
[2022-05-14] VITALS (8 sets, daily range): BP systolic 128–144; BP diastolic 57–87; PULSE 66–88; RESP 12–18; TEMP 36.6–37; O2SAT 93–98
[2022-05-14] MEDS: Cefazolin 1 GM/50 ML BAG IV (00:45)
[2022-05-14] MEDS: Acetaminophen 500 MG Tablet 1000 MG PO ×3 (05:15→21:13)
[2022-05-14] MEDS: Levothyroxine 50 MCG Tablet PO (05:15)
[2022-05-14] MEDS: oxyCODONE 5 MG Tablet PO ×4 (05:15→22:00)
[2022-05-14 05:26] LABS: Bedside Glucose 180 mg/dL (74-106)
[2022-05-14] MEDS: Insulin Lispro 100 UNIT/ML INSULN.PEN SC ×2 (07:57→13:20)
[2022-05-14] MEDS: Glimepiride 2 MG Tablet PO ×2 (07:58→18:01)
[2022-05-14] MEDS: Pantoprazole Sodium 40 MG Tablet PO (09:53)
[2022-05-14] MEDS: DULoxetine Hcl 60 MG Capsule PO (09:53)
[2022-05-14] MEDS: amLODIPine 10 MG Tablet PO (09:54)
--- NOTE | 2022-05-14 10:00 | CASEMGMT ---
MIKA SALMON Assessment: Face to Face with pt for initial transition planning/care coordination assessment. MIKA SALMON introduced self and role at [facility], pt voices understanding and consents to assessment. Pt is A/O x4 and answers all questions appropriately at this time. Pt sitting up in chair in no distress. Care providers, pharmacy, and demographics verified/updated. Admitting Dx: 360 lumbar fusion L4-5 left PCP:Morgan Specialists:Ko, spine OR Preferred Pharmacy: [facility] Insurance: [facility] Prescription Benefit: yes LW/HPOA: Pt has LW/DPOA on file at [facility]. His DPOA is his Patience Hernández. LNOK: Patiecne Hernández, ; Jeanne Villa dtr Living Arrangements: Pt lives with in a two story house with 1 step to enter without a rail. Pt reports he is I in ADL's and denies concerns at home. Transportation: Pt drives self and denies concerns with transportation. DME/HHC/SNF: Pt has a cane, FWW that he uses as well as a hospital bed and power scooter. Pt denies previous HHC or SNF stays. Pt states no concerns with going home at time of dc. Pt states he uses his power scooter or 4 par[address] to go to the barn to feed his animals. Pt states no further concerns/needs. Pt is anxious to return home. CM to follow. Advised pt to ask CM if any further question/concerns/needs arise, voices understanding. Pt Goal: Home Plan: Home
--- NOTE | 2022-05-14 11:42 | PN.HOSP_ITS ---
Subjective Subjective Patient seen and examined. He has no complaints and had an uneventful night. He is passing gas. Review of systems otherwise negative. He has remained hemodynamically stable. Objective Data Objective Data Vital Signs: Vital Signs Temp Pulse Resp BP Pulse Ox 98.4 F 72 16 132/68 H 97 05/14/22 09:28 05/14/22 09:30 05/14/22 09:30 05/14/22 09:28 05/14/22 09:28 Oxygen Flow Rate (L/min) 2 Oxygen Delivery Method Nasal Cannula Weight: 193 lb Body Mass Index (BMI) 27.6 Intake & Output: Intake and Output for Last 24 Hours 05/12/22 05/13/22 05/14/22 23:59 23:59 23:59 Intake Total 4302 / 4302 118.5 / 118.5 Output Total 1200 / 1200 455 / 455 Balance 3102 / 3102 -336.5 / -336.5 Lab / Micro Data Result Diagrams: 05/05/22 15:56 05/05/22 15:56 Labs: Laboratory Results - last 24 hr 05/13/22 13:47: POC Glucose 162 H 05/13/22 14:43: POC Glucose 158 H 05/13/22 17:03: POC Glucose 180 H 05/13/22 21:04: POC Glucose 189 H 05/14/22 05:16: POC Glucose 180 H Micro: Microbiology 05/05/22 15:56 Swab (Method) Nasal Screen MRSA/MSSA - Final Radiography Diagnostic Testing: Radiology Impression Spine X-Ray 05/13/22 10:20 IMPRESSION: Anterior fusion at the L4-L5 level with prosthetic disc placement. Electronically Signed: Donnie Jones MD at 12:08 EDT , Spine X-Ray 05/13/22 12:05 IMPRESSION: The localization instrument is seen along the posterior aspect of the L4-L5 disc space level. Electronically Signed: Donnie Jones MD at 12:30 EDT , Physical Exam Const alert, oriented x3 and no apparent distress Exam Limitations: no limitations HEENT head/scalp atraumatic and moist oral mucous membranes Eyes PERRL, EOMs intact bilaterally and conjunctivae normal Neck no lymphadenopathy, supple and no JVD Resp normal respiratory effort, no retractions, no use of accessory muscles and clear to auscultation bilaterally Cardio regular rate, regular rhythm and S1 normal heart sound GI normal to inspection, nondistended, normoactive bowel sounds, soft to palpation and non-tender Extremity normal to inspection, full ROM and no clubbing, cyanosis or edema Skin no rashes or lesions noted Skin Narrative: back draiin in place Neuro oriented x3 Sensorium / Orientation: awake and alert Psych affect normal Assessment & Plan Assessment/Plan (1) Herniated nucleus pulposus, L4-5 left: (2) Diabetes: (3) Hypertension: (4) High cholesterol: PLAN: Plan #Lumbar spine stenosis * s/p lumbar spinal fusion of L4-5, lumbar laminectomy of L4-5 on left nad nonsegmental fixation of L4- * today is POD 01 * pain management as per primary team spine surgery * PT/OT on board. * Fall precautions * incentive spirometry * #Type 2 diabetes mellitus * On glimepiride and Lantus 20 units nightly. Insulin sliding scale. Checks ACH S. * #Hypothyroidism: On Synthroid #Hypertension: On amlodipine, lisinopril and metoprolol #GED: on PPI DVT prophylaxis: SCDs; as per primary team Thank you for the courtesy of the consult. We will continue to follow with you. Charges/Coding Visit Charges Inpatient E&M: 18237 Subs Hosp L2
--- NOTE | 2022-05-14 11:43 | NURSING ---
Less than 10 cc of drainage noted in hemovac drain
[2022-05-14 11:46] LABS: Bedside Glucose 101 mg/dL (74-106)
[2022-05-14 17:11] LABS: Bedside Glucose 140 mg/dL (74-106)
[2022-05-14] MEDS: Ensure Surgery 237 ML LIQUID PO (18:02)
[2022-05-14] MEDS: Insulin Glargine-YFGN 100 UNIT/ML Pen 20 UNIT SC (21:09)
[2022-05-14] MEDS: Metoprolol(XL)Succ 50 MG Tablet PO (21:13)
[2022-05-14] MEDS: Lisinopril 40 MG Tablet PO (21:14)
[2022-05-15 02:39] VITALS: BP 128/80; PULSE 71; RESP 18; TEMP 36.8; O2SAT 96
[2022-05-15] MEDS: oxyCODONE 5 MG Tablet PO ×3 (03:12→13:40)
--- NOTE | 2022-05-15 03:29 | NURSING ---
0315- pt reporting blood glucose level of 57 per his alvarez tracking device. pt alert and asymptomatic; snack provided. 0330- pt blood glucose level still 57 after snack. Regular sprite provided. Pt still alert and asymptomatic.
--- NOTE | 2022-05-15 04:00 | NURSING ---
0345- pt reporting blood glucose level now 97.
[2022-05-15] MEDS: Acetaminophen 500 MG Tablet 1000 MG PO ×2 (05:47→13:40)
[2022-05-15] MEDS: Levothyroxine 50 MCG Tablet PO (05:47)
[2022-05-15 06:36] VITALS: O2SAT 95
[2022-05-15] MEDS: DULoxetine Hcl 60 MG Capsule PO (07:50)
[2022-05-15] MEDS: Pantoprazole Sodium 40 MG Tablet PO (07:50)
[2022-05-15] MEDS: amLODIPine 10 MG Tablet PO (07:50)
[2022-05-15] MEDS: Glimepiride 2 MG Tablet PO (07:52)
[2022-05-15] MEDS: Ensure Surgery 237 ML LIQUID PO ×2 (07:53→11:52)
[2022-05-15 08:34] VITALS: BP 126/54; PULSE 73; RESP 16; TEMP 37.6; O2SAT 92
[2022-05-15] MEDS: Insulin Lispro 100 UNIT/ML INSULN.PEN SC (11:53)
[2022-05-15 11:59] VITALS: BP 129/64; PULSE 65; RESP 16; TEMP 37; O2SAT 92
--- NOTE | 2022-05-15 13:14 | PN.HOSP_ITS ---
Subjective Subjective Patient seen and examined. He feels well and has no complaints. He had an uneventful night and review of systems otherwise negative. He has remained hemodynamically stable. He is hopeful he will be discharged home today. Objective Data Objective Data Vital Signs: Vital Signs Temp Pulse Resp BP Pulse Ox 98.6 F 65 16 129/64 H 92 05/15/22 11:59 05/15/22 11:59 05/15/22 11:59 05/15/22 11:59 05/15/22 11:59 Oxygen Flow Rate (L/min) 2 Oxygen Delivery Method Room Air Weight: 193 lb Body Mass Index (BMI) 27.6 Intake & Output: Intake and Output for Last 24 Hours 05/13/22 05/14/22 05/15/22 23:59 23:59 23:59 Intake Total 4302 / 4302 358.5 / 358.5 750 / 750 Output Total 1200 / 1200 465 / 465 900 / 900 Balance 3102 / 3102 -106.5 / -106.5 -150 / -150 Lab / Micro Data Result Diagrams: 05/05/22 15:56 05/05/22 15:56 Labs: Laboratory Results - last 24 hr 05/14/22 17:05: POC Glucose 140 H Micro: Microbiology 05/05/22 15:56 Swab (Method) Nasal Screen MRSA/MSSA - Final Physical Exam Const alert, oriented x3 and no apparent distress Exam Limitations: no limitations HEENT head/scalp atraumatic, moist oral mucous membranes and oropharynx normal Eyes PERRL, EOMs intact bilaterally and conjunctivae normal Neck no lymphadenopathy, supple and no JVD Resp normal respiratory effort, no retractions, no use of accessory muscles and clear to auscultation bilaterally Cardio regular rate, regular rhythm and S1 normal heart sound GI normal to inspection, nondistended, normoactive bowel sounds, soft to palpation and non-tender GI Narrative: intact dressing over abdominal surgical site Extremity normal to inspection, full ROM and no clubbing, cyanosis or edema Skin no rashes or lesions noted Skin Narrative: back draiin in place Neuro oriented x3 Sensorium / Orientation: awake and alert Psych affect normal Assessment & Plan Assessment/Plan (1) Herniated nucleus pulposus, L4-5 left: (2) Diabetes: (3) Hypertension: (4) High cholesterol: PLAN: Plan #Lumbar spine stenosis * s/p lumbar spinal fusion of L4-5, lumbar laminectomy of L4-5 on left nad nonsegmental fixation of L4- * today is POD 2 * pain management as per primary team spine surgery * PT/OT on board. * Fall precautions * incentive spirometry * #Type 2 diabetes mellitus * On glimepiride and Lantus 20 units nightly. Insulin sliding scale. Checks ACH S. * #Hypothyroidism: On Synthroid #Hypertension: On amlodipine, lisinopril and metoprolol #GED: on PPI DVT prophylaxis: SCDs; as per primary team Patient stable for discharge from hospitalist standpoint
[2022-05-15 13:46] LABS: Absolute Lymphocyte Count 1.37 X10^3/uL (0.83-4.51); Basophil# 0.06 X10^3/uL; Basophil% 0.5 % (0-1); Eosinophil# 0.27 X10^3/uL; Eosinophils% 2.3 % (0-5); Hemoglobin 11.9 g/dL (13.0-16.5); Lymphocyte # 1.37 X10^3/ul (0.83-4.51); Lymphocyte % 11.7 % (19-41); Mean Corp Hgb Conc 32.2 g/dL (32-36); Mean Platelet Vol. 10.1 fl (6.2-12.0); Monocyte# 0.95 X10^3/uL; Monocyte% 8.1 % (0-10); NRBC Flagged by Analyzer 0 % (0-5); Neutrophil % 76.8 % (47-70); Platelet Count 171 K/mm3 (150-450); RBC Distribution Width CV 15.6 % (11.6-14.6); RBC Distribution Width SD 45.7 fl (35.1-43.9); Red Blood Count 4.57 M/mm3 (4.6-6.2); White Blood Count 11.7 K/mm3 (4.4-11.0)
[2022-05-15 14:00] LABS: Anion Gap 3 (5-15); BUN 17 mg/dL (7-18); BUN/Creat Ratio 18.1 RATIO (10-20); Calcium,Total 9.4 mg/dL (8.5-10.1); Chloride 104 mmol/L (98-107); Creatinine, Serum 0.94 mg/dL (0.70-1.30); EST Glomerular Filtration Rate 85 mL/min (>60); Est Glom Filt Rate - Afr Amer 103 mL/min (>60); Estimated Creatinine Clearance 76.58 ml/min; Glucose 189 mg/dL (74-106); Potassium 3.9 mmol/L (3.5-5.1); Sodium Level 134 mmol/L (136-145)
--- NOTE | 2022-05-15 14:47 | DCINST_ITS ---
Discharge Instructions Follow Up Care Test Results: Test results from this visit will be discussed in further detail at your follow- up appointment, if applicable. Discharge Plan Admission Admit Date/Time: 05/13/22 06:09 Primary Reason for Your Visit: 360 degree fusion L4/5 Attending Provider: Kwan Connell Primary Care Provider: GUERA MOLINA Consulting Providers: Rachelle Cuellar Discharge Orders/Prescriptions Prescriptions: No Action lisinopril 20 mg tablet 40 mg PO QHS levothyroxine [Synthroid] 50 mcg tablet 50 mcg PO DAILY duloxetine 60 mg capsule,delayed release(DR/EC) 60 mg PO DAILY loratadine [Claritin] 10 mg tablet 10 mg PO QHS aspirin 81 mg tablet,chewable 81 mg PO DAILY glimepiride 2 mg tablet 2 mg PO BID oxycodone-acetaminophen 5-325 mg tablet 1 tab PO Q6H PRN (Reason: pain) 10 Days Qty: 60 0RF amlodipine 10 MG tablet 10 mg PO DAILY diclofenac sodium 100 GM gel 4 g TP BID PRN PRN (Reason: Osteoarthritis) Label Comments: Apply 4 grams topically 2 times daily as needed for Pain Left knee osteoarthritis pantoprazole 40 mg tablet,delayed release (DR/EC) 40 mg PO DAILY metoprolol succinate 50 mg tablet extended release 24 hr 50 mg PO QHS tadalafil 5 mg tablet 5 mg PO DAILY Label Comments: TAKE 1 TABLET BY MOUTH EVERY DAY insulin aspart U-100 [Novolog Flexpen U-100 Insulin] 100 unit/mL (3 mL) Insulin Pen 4 unit SUBCUT TID insulin glargine [Basaglar KwikPen U-100 Insulin] 100 unit/mL (3 mL) Insulin Pen 20 unit SUBCUT QPM Referrals / Follow Up: GUERA MOLINA [Other] Disposition Disposition (needs filled in before D/C Order can be placed): Home, Self Care
--- NOTE | 2022-05-15 14:51 | PCM.DC.SUM ---
Providers Date of Admission: 05/13/22 Primary Care Physician: GUERA MOLINA Consultations 05/13/22 16:41 Consult: Hospitalist Routine Consulting Provider: Rachelle Cuellar Reason for Consult: Medical Management EMERGENT Consult: No MD Notified: Yes Date Notified: 05/13/22 Time Notified: 16:44 Method of Notification: Text Reason For Visit: 360 LUMBAR FUSION L405 LEFT Diagnosis Discharge Diagnosis (1) Herniated nucleus pulposus, L4-5 left: Status: Acute Code(s): M51.26 - Other intervertebral disc displacement, lumbar region (2) Diabetes: Status: Chronic Code(s): E11.9 - Type 2 diabetes mellitus without complications (3) Hypertension: Status: Chronic Code(s): I10 - Essential (primary) hypertension (4) High cholesterol: Status: Chronic Code(s): E78.00 - Pure hypercholesterolemia, unspecified Medications at Discharge Home Medications lisinopril 20 mg tablet 40 mg PO QHS BP 12/29/17 duloxetine 60 mg capsule,delayed release 60 mg PO DAILY DEPRESSION 01/05/18 levothyroxine 50 mcg tablet (Synthroid) 50 mcg PO DAILY THYROID 01/05/18 loratadine 10 mg tablet (Claritin) 10 mg PO QHS ALLERGIES 01/05/18 aspirin 81 mg chewable tablet 81 mg PO DAILY HEART HEALTH 05/31/20 amlodipine 10 mg tablet 10 mg PO DAILY BP 10/29/20 diclofenac sodium 1 % topical gel 4 g TP BID PRN PRN Osteoarthritis 10/29/20 metoprolol succinate 50 mg tablet,extended release 24 hr 50 mg PO QHS HEART 08/02/21 pantoprazole 40 mg tablet,delayed release 40 mg PO DAILY GERD 08/02/21 tadalafil 5 mg tablet 5 mg PO DAILY BPH 08/09/21 glimepiride 2 mg tablet 2 mg PO BID DIABETES 09/30/21 insulin aspart U-100 100 unit/mL (3 mL) subcutaneous pen (Novolog Flexpen U-100 Insulin aspart) 4 unit subcut TID DIABETES 04/29/22 insulin glargine 100 unit/mL (3 mL) subcutaneous pen (Basaglar KwikPen U-100 Insulin) 20 unit subcut QPM DIABETES 04/29/22 oxycodone-acetaminophen 5 mg-325 mg tablet 1 tab PO Q6H PRN pain 10 days #60 tabs 05/05/22 Hospital Course Summary of Care Provided Hospital Course: Mr. Hernández was admitted on Thursday the 2 days ago. The date of admission he underwent 360 degree fusion with a laminectomy at the L4-5 level. He tolerated the procedure quite well. Has good bowel sounds today and has been having flatulence. He even had a small bowel movement earlier. We remove the back dressing and changed it and remove the drain. The wound is healing well. The front dressing is dry. Neurologically he is intact. He also reports that his left leg pain is completely resolved. He is very pleased with his apparent outcome. He has been walking quite well in the hallways. He takes oxycodone for pain. He was given postop protocol protocol regarding his activities. He already has an appointment to see me in the office. He was given oxycodone 5 mg plus acetaminophen 325 mg for pain that he can take every 6 hours. noticed remove the dressings on Thursday he can start showering on Thursday. This is the end of discharge summary on Rod Hernández. This is Dr. Connell dictating. Weight / BMI Weight Weight: 193 lb Body Mass Index (BMI) 27.6 ABG / Lab / Microbiology Data Result Diagrams: 05/15/22 13:25 05/15/22 13:25 Laboratory: Laboratory Results - last 24 hr 05/14/22 17:05: POC Glucose 140 H 05/15/22 13:25: WBC 11.7 H, RBC 4.57 L, Hgb 11.9 L, Hct 37.0 L, MCV 81.0, MCH 26.0 L, MCHC 32.2, RDW Std Deviation 45.7 H, RDW Coeff of Lila 15.6 H, Plt Count 171, MPV 10.1, Immature Gran % (Auto) 0.600, Neut % (Auto) 76.8 H, Lymph % (Auto) 11.7 L, Jenkins % (Auto) 8.1, Eos % (Auto) 2.3, Baso % (Auto) 0.5, Absolute Neuts (auto) 9.0 H, Absolute Lymphs (auto) 1.37, Nucleated RBC % 0 05/15/22 13:25: Sodium 134 L, Potassium 3.9, Chloride 104, Carbon Dioxide 27.0, Anion Gap 3 L, BUN 17, Creatinine 0.94, Estim Creat Clear Calc 76.58, Est GFR (MDRD) Af Amer 103, Est GFR (MDRD) Non-Af 85, BUN/Creatinine Ratio 18.1, Glucose 189 H, Calcium 9.4 Microbiology: Microbiology 05/05/22 15:56 Swab (Method) Nasal Screen MRSA/MSSA - Final Meaningful Use Info Meaningful Use Diagnoses (Choose all that apply): None applicable Discharge Plan Admission Admit Date/Time: 05/13/22 06:09 Primary Reason for Your Visit: 360 degree fusion L4/5 Attending Provider: Kwan Connell Primary Care Provider: GUERA MOLINA Consulting Providers: Rachelle Cuellar Discharge Orders/Prescriptions Prescriptions: No Action lisinopril 20 mg tablet 40 mg PO QHS levothyroxine [Synthroid] 50 mcg tablet 50 mcg PO DAILY duloxetine 60 mg capsule,delayed release(DR/EC) 60 mg PO DAILY loratadine [Claritin] 10 mg tablet 10 mg PO QHS aspirin 81 mg tablet,chewable 81 mg PO DAILY glimepiride 2 mg tablet 2 mg PO BID oxycodone-acetaminophen 5-325 mg tablet 1 tab PO Q6H PRN (Reason: pain) 10 Days Qty: 60 0RF amlodipine 10 MG tablet 10 mg PO DAILY diclofenac sodium 100 GM gel 4 g TP BID PRN PRN (Reason: Osteoarthritis) Label Comments: Apply 4 grams topically 2 times daily as needed for Pain Left knee osteoarthritis pantoprazole 40 mg tablet,delayed release (DR/EC) 40 mg PO DAILY metoprolol succinate 50 mg tablet extended release 24 hr 50 mg PO QHS tadalafil 5 mg tablet 5 mg PO DAILY Label Comments: TAKE 1 TABLET BY MOUTH EVERY DAY insulin aspart U-100 [Novolog Flexpen U-100 Insulin] 100 unit/mL (3 mL) Insulin Pen 4 unit SUBCUT TID insulin glargine [Basaglar KwikPen U-100 Insulin] 100 unit/mL (3 mL) Insulin Pen 20 unit SUBCUT QPM Referrals / Follow Up: GUERA MOLINA [Other] Disposition Disposition (needs filled in before D/C Order can be placed): Home, Self Care
== END 2022-05-15 15:45 | disposition home or self-care (01) | DRG 455 ==
LOC: ACINP 06:12 → MS3 05-14 08:13
PROVIDERS: Anesthesiology; Student in an Organized Health Care Education/Training Program; Admitting Provider Orthopaedic Surgery; Referring Provider Orthopaedic Surgery; Visit Provider Orthopaedic Surgery
PROC: 0SG00A0 Fusion of Lumbar Vertebral Joint with Interbody Fusion Device, Anterior Approach, Anterior Column, Open Approach (ICD-10-PCS; principal; 2022-05-13 07:00)
DX: M51.16 Intervertebral disc disorders with radiculopathy, lumbar region (principal); E03.9 Hypothyroidism, unspecified; E11.40 Type 2 diabetes mellitus with diabetic neuropathy, unspecified; Z79.4 Long term (current) use of insulin; M48.061 Spinal stenosis, lumbar region without neurogenic claudication; E78.00 Pure hypercholesterolemia, unspecified; I10 Essential (primary) hypertension; F17.220 Nicotine dependence, chewing tobacco, uncomplicated; K21.9 Gastro-esophageal reflux disease without esophagitis; Z98.1 Arthrodesis status; Z79.82 Long term (current) use of aspirin; Z79.84 Long term (current) use of oral hypoglycemic drugs; Z79.899 Other long term (current) drug therapy; Z86.16 Personal history of COVID-19; Z86.73 Personal history of transient ischemic attack (TIA), and cerebral infarction without residual deficits
CPT/HCPCS: 36415; 72020; 80048; 82803; 82962; 83036; 83735; 84443; 85025; 85027; 86703; 86706; 86708; 86803; 87081; 88304; 97162; 97530; 99251; 99406; C1713; J7120; A4216; G0463; J2405; J3475